=== PATIENT | female | born 1940 | race Caucasian/White ===

== ENCOUNTER 2016-07-03 10:05 | Inpatient (IN) | payer OTHER, BC ==
--- NOTE | 2016-07-03 10:14 | PDOC ---
History of Present Illness - General Stated Complaint: CHEST PAIN Time Seen by Provider: 07/03/16 10:13 History Source: Patient Exam Limitations: No Limitations - History of Present Illness Initial Comments: 07/03/16 10:14 CHIEF COMPLAINT: Chest pain HISTORY OF PRESENT ILLNESS: This is a 76 year old female with a history of CAD s /p CABG ([facility]), NIDDM, HTN, and metastatic cancer of unknown primary origin ( scheduled for liver biopsy today; prior imaging on record includes CT brain showing metastatic disease, liver u/s showing malignancy, CT chest showing metastases). She presents today complaining of dull chest pain radiating to the left arm that first occurred yesterday as she was walking up a hill. It was associated with shortness of breath and "clamminess". Her symptoms were relieved with rest but recurred this morning. Her son at bedside also notes that she has been "loopy" and not herself lately. 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 PCP is Dr. Pederson Vertical Contour Band Saw Operator is Dr. Tessa Moon ([phone]) located at [facility] [place] Patient is a non-smoker. REVIEW OF SYSTEMS: GENERAL/CONSTITUTIONAL: No fever or chills. No weakness. No weight change. HEAD, EYES, EARS, NOSE AND THROAT: No change in vision. No ear pain or discharge. No sore throat. CARDIOVASCULAR: See HPI. RESPIRATORY: No cough or wheezing. GASTROINTESTINAL: No nausea, vomiting, diarrhea or constipation. GENITOURINARY: No dysuria, frequency, or change in urination. MUSCULOSKELETAL: No joint or muscle swelling or pain. No neck or back pain. SKIN: No rash or easy bruising. NEUROLOGIC: No headache, vertigo, loss of consciousness, or loss of sensation. PSYCHIATRIC: No depression or anxiety. ENDOCRINE: No increased thirst. No abnormal weight change. HEMATOLOGIC/LYMPHATIC: No anemia, easy bleeding, or history of blood clots. ALLERGIC/IMMUNOLOGIC: No hives or skin allergy. No latex allergy. PHYSICAL EXAM: GENERAL: The patient is awake, alert, and fully oriented, in no acute distress. ENT: Pupils equal, round and reactive to light, extraocular movements intact, sclera anicteric, conjunctiva clear. Neck supple. LUNGS: Clear to auscultation bilaterally. Normal excursion. No respiratory distress or use of accessory muscles. CV: RRR, S1/S2, no MRG. Cap refill < 2 sec. ABDOMEN: Soft, non-distended, non-tender. EXTREMITIES: Normal range of motion. RLE 2+ pitting edema. No calf tenderness. NEUROLOGICAL: Normal speech, normal gait. CN II-XII grossly intact. PSYCH: Normal mood, normal affect. SKIN: Warm, dry, normal turgor, no rashes or lesions noted. Past History - Past Medical History Allergies/Adverse Reactions: Allergies Allergy/AdvReac Type Severity Reaction Status Date / Time No Known Allergies Allergy Verified 07/03/16 10:14 Home Medications: Ambulatory Orders Aspirin [Aspirin EC] 81 mg PO DAILY 11/01/15 Atorvastatin Ca [Lipitor] 20 mg PO HS 11/01/15 Carvedilol [Coreg] 6.25 mg PO BID 11/01/15 Metformin HCl [Glucophage -] 1,000 mg PO BID 11/01/15 Olmesartan Medoxomil [Benicar -] 20 mg PO DAILY 11/01/15 Raloxifene HCl [Evista (Nf) -] 60 mg PO DAILY 11/01/15 Cholecalciferol (Vitamin D3) [Vitamin D3 -] 1,000 unit PO DAILY 07/03/16 Anemia: No Asthma: No Cancer: No Cardiac Disorders: Yes (CAD) CVA: No COPD: No CHF: No Dementia: No Diabetes: Yes GI Disorders: Yes (GERD) Disorders: No HTN: No Hypercholesterolemia: No Liver Disease: No Seizures: No Thyroid Disease: No - Surgical History Abdominal Surgery: No Appendectomy: Yes Cardiac Surgery: Yes (CABG 2005) Cholecystectomy: No Lung Surgery: No Neurologic Surgery: No Orthopedic Surgery: No - Immunization History Immunization Up to Date: Yes - Psycho/Social/Smoking Cessation Hx Suicidal Ideation: No Smoking History: Never smoked Hx Alcohol Use: No Drug/Substance Use Hx: No Substance Use Type: None Hx Substance Use Treatment: No *Physical Exam - Vital Signs Last Vital Signs Temp Pulse Resp BP Pulse Ox 97.2 F L 87 20 91/53 98 07/03/16 10:12 07/03/16 10:12 07/03/16 10:12 07/03/16 10:12 07/03/16 10:12 ED Treatment Course - LABORATORY CBC & Chemistry Diagram: 07/03/16 10:30 07/03/16 10:30 - RADIOLOGY Radiology Studies Ordered: Category Date Time Status CHEST X-RAY PORTABLE* [RAD] Stat Radiology 07/03/16 10:14 Ordered Medical Decision Making - Medical Decision Making 07/03/16 10:55 A/P: 76 year old female with metastatic cancer presenting with chest pain. 1. EKG 2. CXR 3. Cardiac labs 4. Not giving ASA for now because of scheduled liver biopsy; called IR to discuss and am awaiting callback 5. Duplex LE u/s to r/o DVT- no calf pain but does have asymmetric edema and is at high risk with active malignancy 6. Admission vs. observation 07/03/16 11:13 CXR: mildly increased interstitial markings, cardiomegaly. Troponin 0.91. ASA given. Heparin bolus and gtt started. Cardiology paged. 07/03/16 11:[address] Valdez- agrees with heparin. Recommends holding on Plavix for now. Will consult on patient. U/s positive for right popliteal DVT. CTA chest ordered. CTA positive for PE in left lower pulmonary arterial branches. Echo completed. Discussed with Dr. Daniel. Will repeat HCT prior to starting heparin as cancer does seem to be rapidly progressive. Please no ASA going forward as it is important to obtain liver biopsy during this admission. Patient to be admitted to hospitalist service. Will receive oncology care primarily at [facility], but Dr. Pederson requests that Dr. Lopez consult while patient is here. Discussed with Dr. Hinds who agrees with heparin. Approved for ICU by Dr. Sanchez. Accepted for admission by Dr. Deluca. *DC/Admit/Observation/Transfer Diagnosis at time of Disposition: Elevated troponin Chest pain Qualifiers: Chest pain type: unspecified Qualified Code(s): R07.9 - Chest pain, unspecified DVT (deep venous thrombosis) Qualifiers: DVT location: lower extremity Affected thrombotic vein of extremity: popliteal Laterality: right Chronicity: acute Qualified Code(s): I82.431 - Acute embolism and thrombosis of right popliteal vein Pulmonary embolism Qualifiers: Pulmonary embolism type: other Chronicity: acute Acute cor pulmonale presence: without acute cor pulmonale Qualified Code(s): I26.99 - Other pulmonary embolism without acute cor pulmonale - Discharge Dispostion Admit: Yes - Referrals Referrals: [place] Pederson MD [Primary Care Provider] -
[2016-07-03] MEDS ORDERED: ASPIRIN 81 MG CHEWABLE TABLETS PO ONE (10:23)
[2016-07-03] MEDS ORDERED: ASPIRIN 81 MG CHEWABLE TABLETS ONE (10:29)
[2016-07-03 10:46] LABS: BASOPHIL 0.8 % (0-2.0); EOSINOPHIL 2.1 % (0-4.5); MCH 28.8 pg (25.7-33.7); MCHC 32.7 g/dl (32.0-36.0); MEAN CELL VOLUME 88.1 fl (80-96); MEAN PLT VOLUME 8.1 fl (7.5-11.1); NEUTROPHILS 69.2 % (42.8-82.8); PLATELET COUNT 104 K/MM3 (134-434); RDW 14.3 % (11.6-15.6)
[2016-07-03 10:56] LABS: ALBUMIN 3.3 g/dl (3.4-5.0); BILIRUBIN,TOTAL 0.5 mg/dL (0.2-1.0); CALCIUM 8.7 mg/dL (8.5-10.1); CREATININE 1.2 mg/dL (0.55-1.02); TOT PROT 6.9 g/dl (6.4-8.2)
[2016-07-03 10:59] LABS: INR 1.32 (0.82-1.09); PROTHROMBIN TIME (PATIENT) 14.6 SEC (9.98-11.88)
[2016-07-03 11:13] LABS: TROPONIN I 0.91 ng/ml (0.00-0.05)
[2016-07-03] MEDS ORDERED: HEPARIN NA (PORCINE) 5,000 UNITS/ML 1ML VIAL IVPUSH PRN ×2 (11:16)
[2016-07-03] MEDS ORDERED: HEPARIN NA (PORCINE) 5,000 UNITS/ML 1ML VIAL IVPUSH ONE (11:17)
[2016-07-03] MEDS: HEPARIN - 25,000 UNIT in SODIUM CHLORIDE 495 ML IV SCH (11:20)
[2016-07-03] MEDS ORDERED: HEPARIN INFUSION - 500 ML IVPB ONE (11:24)
[2016-07-03] MEDS: SODIUM CHLORIDE 1,000 ML IV SCH ×2 (12:06→19:01)
--- NOTE | 2016-07-03 12:13 | PDOC ---
*Physical Exam - Vital Signs Last Vital Signs Temp Pulse Resp BP Pulse Ox 97.2 F L 87 20 91/53 98 07/03/16 10:12 07/03/16 10:12 07/03/16 10:12 07/03/16 10:12 07/03/16 10:17 ED Treatment Course - LABORATORY CBC & Chemistry Diagram: 07/03/16 10:30 07/03/16 10:30 - ADDITIONAL ORDERS Additional order review: Laboratory Results 07/03/16 07/03/16 07/03/16 11:17 10:30 10:30 INR 1.32 H PTT (Actin FS) 30.8 Sodium 143 Potassium 4.7 Chloride 111 H Carbon Dioxide 22 Anion Gap 10 BUN 22 H Creatinine 1.2 H Creat Clearance w eGFR 43.80 Random Glucose 129 H Calcium 8.7 Total Bilirubin 0.5 AST 21 ALT 18 Alkaline Phosphatase 98 Creatine Kinase 74 Troponin I 0.91 H* Total Protein 6.9 Albumin 3.3 L 07/03/16 10:30 RBC 3.75 MCV 88.1 MCHC 32.7 RDW 14.3 MPV 8.1 Neutrophils % 69.2 Lymphocytes % 19.8 Monocytes % 8.1 Eosinophils % 2.1 Basophils % 0.8 - Medications Given in the ED: ED Medications Discontinued Medications Generic Name Dose Route Start Last Admin Trade Name Freq PRN Reason Stop Dose Admin Aspirin 162 mg 07/03/16 10:23 07/03/16 10:31 Asa - PO 07/03/16 10:24 162 mg ONCE ONE Administration Heparin Sodium (Porcine) 5,000 unit 07/03/16 11:17 07/03/16 11:20 Heparin - IVPUSH 07/03/16 11:18 5,000 unit ONCE ONE Administration Medical Decision Making - Critical Care Time Total Critical Care Time (minutes): 50 Critical Care Statement: The care of this patient involved high complexity decision making to prevent further life threatening deterioration of the patient 's condition and/or to evalute & treat vital organ system(s) failure or risk of failure. - Medical Decision Making 07/03/16 12:11 Patient seen and evaluated with the nurse practitioner. I agree with the overall evaluation, assessment, and management with the following summary of visit: 76-year-old female with metastatic CA with scheduled liver biopsy today but deferred to ED for chest pain. Agree with assessment and management as outlined, positive DVT, will rule out PE - discussion regarding anti-coagulation. Also with positive troponin. Will admit for further care, IR and PMD involved. *DC/Admit/Observation/Transfer Diagnosis at time of Disposition: Chest pain Qualifiers: Chest pain type: unspecified Qualified Code(s): R07.9 - Chest pain, unspecified
--- NOTE | 2016-07-03 12:13 | PN ---
Progress Note (short form) - Note Progress Note: Cardiology Consult Dictated 76F w/ CAD s/p CABG, recently diagnosed with probable metastatic CA of unknown primary (liver, lungs, brain) was scheduled for bx today but came to ER with 2 days of SOB and SSCP, found to have mildly elevated TnI and LE asymmetry. + DVT. Clinical suspicion of PE. REC: 1. Echo 2. Begin AC if no absolute contraindications. D/W Radiology, will repeat head CT to assure no high risk features. 3. Will likely need IVC filter once diagnosis confirmed. 4. Patient and son expressed desire to possibly be transferred to [place]; explained that this may be possible once diagnosis confirmed, therapies initiated if she remains stable for transfer.
--- NOTE | 2016-07-03 13:50 | EKG ---
Test Reason : Blood Pressure : / mmHG Vent. Rate : 090 BPM Atrial Rate : 090 BPM P-R Int : 138 ms QRS Dur : 088 ms QT Int : 364 ms P-R-T Axes : -21 000 026 degrees QTc Int : 445 ms SINUS RHYTHM WITH OCCASIONAL PREMATURE VENTRICULAR COMPLEXES OTHERWISE NORMAL ECG WHEN COMPARED WITH ECG OF 03-JUL-2016 10:13, NONSPECIFIC T WAVE ABNORMALITY NOW EVIDENT IN LATERAL LEADS Confirmed by DERECK GROSS, JANET ([id number]) on 07/03/2016 1:50:16 PM Referred By: Confirmed By:JANET HARDEN MD
--- NOTE | 2016-07-03 13:52 | EKG ---
Test Reason : Blood Pressure : / mmHG Vent. Rate : 086 BPM Atrial Rate : 086 BPM P-R Int : 142 ms QRS Dur : 086 ms QT Int : 374 ms P-R-T Axes : -11 015 027 degrees QTc Int : 447 ms SINUS RHYTHM WITH OCCASIONAL PREMATURE VENTRICULAR COMPLEXES OTHERWISE NORMAL ECG NO PREVIOUS ECGS AVAILABLE Confirmed by JANET HARDEN MD ([id number]) on 07/03/2016 1:52:29 PM Referred By: Confirmed By:JANET HARDEN MD
--- NOTE | 2016-07-03 15:07 | CONSULT ---
Consult Consult Specialty:: PULMONARY/CCM Referred by:: JUAN Olivas Reason for Consultation:: PE - History of Present Illness Chief Complaint: chest pain History of Present Illness: 76yo female with h/o HTN, DM, CAD s/p CABG, undergoing outpt work up of lung mass and likely metastatic disease who presents with dull chest pain radiating to her left arm. Associated with shortness of breath without nausea, vomiting or diaphoresis. She was scheduled to get a CT guided liver biopsy today. She was noted to have a lung mass on a CT chest 2 weeks ago, subsequent work up showing multiple lung, liver and brain nodules. She denies history of clots, no family history of clots. She is a former smoker and is on Evista. - History Source History Provided By: Patient, Family Member Limitations to Obtaining History: No Limitations - Past Medical History Cardio/Vascular: Yes: CAD, HTN Endocrine: Yes: Diabetes Mellitus - Alcohol/Substance Use Hx Alcohol Use: No - Smoking History Smoking history: Never smoked Home Medications - Allergies Allergies/Adverse Reactions: Allergies Allergy/AdvReac Type Severity Reaction Status Date / Time No Known Allergies Allergy Verified 07/03/16 10:14 - Home Medications Home Medications: Ambulatory Orders Aspirin [Aspirin EC] 81 mg PO DAILY 11/01/15 Atorvastatin Ca [Lipitor] 20 mg PO HS 11/01/15 Carvedilol [Coreg] 6.25 mg PO BID 11/01/15 Metformin HCl [Glucophage -] 1,000 mg PO BID 11/01/15 Olmesartan Medoxomil [Benicar -] 20 mg PO DAILY 11/01/15 Raloxifene HCl [Evista (Nf) -] 60 mg PO DAILY 11/01/15 Cholecalciferol (Vitamin D3) [Vitamin D3 -] 1,000 unit PO DAILY 07/03/16 Family Disease History - Family Disease History Other Family History: non-contributory Review of Systems - Review of Systems Constitutional: denies: Chills, Fever Eyes: denies: Recent Change in Vision HENT: denies: Nasal Congestion, Throat Pain Neck: denies: Stiffness, Tenderness Cardiovascular: reports: Chest Pain, Shortness of Breath. denies: Edema, Palpitations Respiratory: reports: SOB, SOB on Exertion. denies: Cough, Hemoptysis, Wheezing Gastrointestinal: denies: Abdominal Pain, Nausea, Vomiting Genitourinary: denies: Dysuria, Hematuria Neurological: denies: Dizziness, Headache Physical Exam Vital Signs: Vital Signs Temperature 98.3 F 07/03/16 14:27 Pulse Rate 86 07/03/16 14:27 Respiratory Rate 20 07/03/16 14:27 Blood Pressure 112/60 07/03/16 14:27 O2 Sat by Pulse Oximetry (%) 98 07/03/16 14:27 Constitutional: Yes: Calm Eyes: Yes: Conjunctiva Clear, EOM Intact HENT: Yes: Atraumatic, Normocephalic Neck: Yes: Supple, Trachea Midline Cardiovascular: Yes: Regular Rate and Rhythm Respiratory: Yes: Regular, CTA Bilaterally Gastrointestinal: Yes: Normal Bowel Sounds, Soft. No: Tenderness Edema: No Neurological: Yes: Alert, Oriented Imaging - Results Cat Scan: Report Reviewed, Image Reviewed (GREGORY mass, multiple nodules, bilateral PE) Problem List - Problems (1) Pulmonary embolism Code(s): I26.99 - OTHER PULMONARY EMBOLISM WITHOUT ACUTE COR PULMONALE Qualifiers: Pulmonary embolism type: other Chronicity: acute Acute cor pulmonale presence: without acute cor pulmonale Qualified Code(s): I26.99 - Other pulmonary embolism without acute cor pulmonale (2) DVT (deep venous thrombosis) Code(s): I82.409 - ACUTE EMBOLISM AND THOMBOS UNSP DEEP VN UNSP LOWER EXTREMITY Qualifiers: DVT location: lower extremity Affected thrombotic vein of extremity: popliteal Laterality: right Chronicity: acute Qualified Code(s): I82.431 - Acute embolism and thrombosis of right popliteal vein (3) Chest pain Code(s): R07.9 - CHEST PAIN, UNSPECIFIED Qualifiers: Chest pain type: unspecified Qualified Code(s): R07.9 - Chest pain, unspecified (4) Elevated troponin Code(s): R79.89 - OTHER SPECIFIED ABNORMAL FINDINGS OF BLOOD CHEMISTRY (5) Pulmonary hypertension Code(s): I27.2 - OTHER SECONDARY PULMONARY HYPERTENSION (6) Lung mass Code(s): R91.8 - OTHER NONSPECIFIC ABNORMAL FINDING OF LUNG FIELD (7) Brain metastases Code(s): C79.31 - SECONDARY MALIGNANT NEOPLASM OF BRAIN Assessment/Plan Acute Pulmonary Emboli DVT Pulmonary HTN 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 CAD s/p CABG HTN DM - anticoagulate with heparin - neuro checks - will try to coordinate liver biopsy while inpatient - O2 to keep SpO2 >90% - may need IVC filter if unable to anticoagulate - ICU monitoring overnight Thank you for this consult Boy Sanchez MD
--- NOTE | 2016-07-03 15:41 | CONS ---
DATE OF CONSULTATION: 07/03/2016 CARDIOLOGY CONSULTATION REQUESTING PROVIDER: Esther Olivas NP, in the emergency department. REASON FOR CONSULTATION: Positive troponin. HISTORY OF PRESENT ILLNESS: The patient is a 76-year-old female with a history of coronary disease, status post CABG greater than 4 years ago, recently diagnosed metastatic cancer to lung, liver and brain. The patient was scheduled for biopsy today but began experiencing substernal chest pressure and shortness of breath beginning yesterday. In the ER she was found to have a troponin level of 0.91 as well as asymmetric lower extremity edema, with her right lower extremity more swollen. Obviously, clinical concern for DVT and PE -- lower extremity duplex confirmed DVT in the right popliteal vein. Presently she is comfortable, with no chest pain, saturation normally with minimal nasal cannula supplementation. She is hemodynamically stable. PAST MEDICAL HISTORY: Includes coronary disease, status post CABG, hypertension, diabetes, hyperlipidemia, recently diagnosed metastatic disease of unknown primary. ALLERGIES: None. MEDICATIONS: Home medications include Evista 60 mg daily, Benicar 20 mg daily, metformin 1000 mg b.i.d., vitamin D3 at 1000 units daily, carvedilol 6.25 mg b.i.d., atorvastatin 20 mg nightly, aspirin 81 mg daily. FAMILY HISTORY: Noncontributory. 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 She is a former smoker. PHYSICAL EXAMINATION: Vitals: Afebrile, temperature 97.2. Blood pressure 91/53. O2 saturation 98 on room air. General: Alert, awake, conversant. Neck: No bruits. No JVD. Heart: S1, S2. Regular. No murmurs. Chest: Clear. Abdomen: Soft. Extremities: With 2+ right lower extremity edema and 1+ left lower extremity edema. DIAGNOSTIC STUDIES: EKG showed sinus rhythm with no acute ST changes, rare PVCs. Chest x-ray shows increased interstitial lung markings and mild cardiomegaly. Left upper lung mass. Previous radiology studies from late May and early June were reviewed, including CT scan of the chest from June 19 showing 2 dominant left lobe masses suspicious for malignancy as well as scattered pulmonary nodules suspicious for metastatic disease and multiple liver lesions suspicious for metastatic disease. A head CT performed on June 27, 2016, showed no acute hemorrhage but decreased attenuation in the left frontal centrum semiovale white matter suspicious for a malignant process. ASSESSMENT: A 76-year-old female with remote history of coronary disease, recently diagnosed metastatic disease, of unknown primary, to the liver, lung and brain, now presents with chest pain and shortness of breath, found to have deep venous thrombosis and probable pulmonary embolism. PLAN: 1. Echocardiogram to assess RV function, assess degree of pulmonary hypertension. 2. Would begin anticoagulation if there are no contraindications. This was discussed with Radiology. A repeat head CT will be obtained to assure that there are no high risk features, such as intracranial bleeding or areas of bleeding within areas of necrosis. 3. The patient will likely need an IVC filter once diagnosis is confirmed. 4. The patient and son expressed desire for possible transfer to [place], which will be an option once the diagnosis is confirmed and treatment is initiated, if she remains stable. 5. Would obtain oncology evaluation and pulmonary evaluation as well. BENNETT KAUR M.D. [id number]
[2016-07-03 15:44] VITALS: BMI 34.0
[2016-07-03] MEDS ORDERED: ONDANSETRON 4 MG/2 ML VIAL IVPB PRN (15:50)
[2016-07-03] MEDS ORDERED: ACETAMINOPHEN 325 MG TABLET (FP) PO PRN (15:50)
--- NOTE | 2016-07-03 16:56 | CONSULT ---
Consult - text type - Consultation Consultation Note: This is a 76 year old female with a history of CAD s/p CABG ([facility]), NIDDM, HTN , and metastatic cancer (scheduled for liver biopsy today; prior imaging on record includes CT brain showing metastatic disease, liver u/s showing malignancy, CT chest showing lung lesions). She presents today complaining of dull chest pain radiating to the left arm that first occurred yesterday as she was walking up a hill. It was associated with shortness of breath and "clamminess". Her symptoms were relieved with rest but recurred this morning. Her son at bedside also notes that she has been "loopy" and not herself lately. More forgertful and clumsy over last few weeks. Several pounds wt. loss. Loss of appetite. 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 PMH HTN DM CAD Last Vital Signs Temp Pulse Resp BP Pulse Ox 98.3 F 86 20 112/60 98 07/03/16 14:27 07/03/16 14:27 07/03/16 14:27 07/03/16 14:27 07/03/16 14:27 PHYSICAL EXAM: GENERAL: The patient is awake, alert, and fully oriented, in no acute distress. ENT: Pupils equal, round and reactive to light, extraocular movements intact, sclera anicteric, conjunctiva clear. Neck supple. LUNGS: Clear to auscultation bilaterally. Normal excursion. No respiratory distress or use of accessory muscles. CV: RRR, S1/S2, no MRG. Cap refill < 2 sec. ABDOMEN: Soft, non-distended, non-tender. EXTREMITIES: Normal range of motion. RLE 2+ pitting edema. No calf tenderness. NEUROLOGICAL: Normal speech, normal gait. CN II-XII grossly intact. Allergies/Adverse Reactions: Allergies Allergy/AdvReac Type Severity Reaction Status Date / Time No Known Allergies Allergy Verified 07/03/16 10:14 Home Medications: Ambulatory Orders Aspirin [Aspirin EC] 81 mg PO DAILY 11/01/15 Atorvastatin Ca [Lipitor] 20 mg PO HS 11/01/15 Carvedilol [Coreg] 6.25 mg PO BID 11/01/15 Metformin HCl [Glucophage -] 1,000 mg PO BID 11/01/15 Olmesartan Medoxomil [Benicar -] 20 mg PO DAILY 11/01/15 Raloxifene HCl [Evista (Nf) -] 60 mg PO DAILY 11/01/15 Cholecalciferol (Vitamin D3) [Vitamin D3 -] 1,000 unit PO DAILY 07/03/16 FH--not contributory SH--ex smoker. Quit 20yrs. ago - Surgical History Appendectomy: Yes Cardiac Surgery: Yes (CABG 2005) - Psycho/Social/Smoking Cessation Hx Smoking History: Never smoked Abnormal Lab Results 07/03/16 07/03/16 07/03/16 10:30 10:30 10:30 WBC 11.0 H Plt Count 104 L INR 1.32 H Chloride 111 H BUN 22 H Creatinine 1.2 H Random Glucose 129 H Troponin I 0.91 H* Albumin 3.3 L A/P: PAtient , noted to have 2 Lt. lung masses and other scattered nodules, multiple liver masses suspicious for mets and brain lesions around 11-13mm with some surrounding edema Scenario suspicious for metastatic lung cancer? will need tissue biopsy via IR. ASA has been on hold for 7d now. Hypercoagulable state of malignancy with DVT/PE--rt. popliteal and LLL PE On heparin drip thromboembolic disease in patients with brain mets is usually not an absolute contraindication for anticoagulation. In certain cases where renal cell/chorioca /thyroid/melanoma is supected vascular mets have a tendency to bleed . Ct head done shows no e/o bleed will need MRI brain with and without lefty once creatinine improves with hydration given the perilesional edema will consider steroids/protonix neurology consult/rad-onc consult to coordinate with IR for biopsy and filter if necessary for procedure if a/c is to be interrupted for a prolonged period of time
--- NOTE | 2016-07-03 16:58 | HP ---
PCP: Chico Pederson CHIEF COMPLAINT: Chest pain HISTORY OF PRESENT ILLNESS: This is a 76-year-old woman who was recently found to have a lung mass with metastatic disease of liver, lungs and brain, and was scheduled for a liver biopsy today. She presented to the ER today with chest pain radiating to her left arm with shortness of breath. She denies palpitations , diaphoresis, nausea, leg edema, leg pain. PAST MEDICAL HISTORY CAD Type 2 diabetes mellitus Hypertension Metastatic cancer (liver, lung, brain metastases) unknown primary GERD PAST SURGICAL HISTORY CABG Appendectomy Allergies No Known Allergies Allergy (Verified 07/03/16 10:14) HOME MEDICATIONS 3 Medication Instructions Recorded Aspirin [Aspirin EC] 81 mg PO DAILY 11/01/15 Atorvastatin Ca [Lipitor] 20 mg PO HS 11/01/15 Carvedilol [Coreg] 6.25 mg PO BID 11/01/15 Metformin HCl [Glucophage -] 1,000 mg PO BID 11/01/15 Olmesartan Medoxomil [Benicar -] 20 mg PO DAILY 11/01/15 Raloxifene HCl [Evista (Nf) -] 60 mg PO DAILY 11/01/15 Cholecalciferol (Vitamin D3) 1,000 unit PO DAILY 07/03/16 [Vitamin D3 -] Social History: Smoking: Never smoked Alcohol: None Drugs: None Recent Travel: No Family History: Non-contributory REVIEW OF SYSTEMS CONSTITUTIONAL: Absent: fever, chills, diaphoresis, generalized weakness, malaise, loss of appetite, weight change HEENT: Absent: rhinorrhea, nasal congestion, throat pain, throat swelling, difficulty swallowing, mouth swelling, ear pain, eye pain, visual changes CARDIOVASCULAR: Present: chest pain. Absent: syncope, palpitations, lightheadedness, peripheral edema RESPIRATORY: Present: shortness of breath. Absent: cough, orthopnea, wheezing, stridor, hemoptysis GASTROINTESTINAL: Absent: abdominal pain, abdominal distension, nausea, vomiting , diarrhea, constipation, melena, hematochezia GENITOURINARY: Absent: dysuria, frequency, urgency, hesitancy, hematuria, flank pain MUSCULOSKELETAL: Absent: myalgia, arthralgia, joint swelling, back pain, neck pain SKIN: Absent: rash, itching, pallor HEMATOLOGIC/IMMUNOLOGIC: Absent: easy bleeding, easy bruising, lymphadenopathy, frequent infections ENDOCRINE: Absent: unexplained weight gain, unexplained weight loss, heat intolerance, cold intolerance NEUROLOGIC: Absent: headache, focal weakness, paresthesias, dizziness, unsteady gait, seizure, mental status changes, bladder or bowel incontinence PSYCHIATRIC: Absent: anxiety, depression, suicidal or homicidal ideation, hallucinations. PHYSICAL EXAMINATION Vital Signs Period Temp Pulse Resp BP Sys/Urbina Pulse Ox Last 24 Hr 97.2 F-98.3 F 82-87 17-20 91-141/53-95 98-98 GENERAL: Awake, alert, and fully oriented, in no acute distress. HEAD: Normal with no signs of trauma. EYES: Pupils equal, round and reactive to light, extraocular movements intact, sclerae anicteric, conjunctivae clear. EARS, NOSE, THROAT: Ears normal, nares patent, oropharynx clear without exudates. Moist mucous membranes. NECK: Normal range of motion, supple without lymphadenopathy, JVD, or masses. LUNGS: Breath sounds equal, clear to auscultation bilaterally. No wheezes, and no crackles. No accessory muscle use. HEART: Regular rate and rhythm, normal S1 and S2 without murmur, rub or gallop. ABDOMEN: Soft, nontender, not distended, normoactive bowel sounds, no guarding, no rebound, no masses. No hepatomegaly or splenomegaly. MUSCULOSKELETAL: Normal range of motion at all joints. No bony deformities or tenderness. No CVA tenderness. UPPER EXTREMITIES: 2+ pulses, warm, well-perfused. No cyanosis. No clubbing. Cap refill <2 seconds. No peripheral edema. LOWER EXTREMITIES: 2+ pulses, warm, well-perfused. No calf tenderness. Trace edema RLE. NEUROLOGICAL: Cranial nerves II-XII intact. Normal speech. Gait not observed. PSYCHIATRIC: Cooperative. Good eye contact. Appropriate mood and affect. SKIN: Warm, dry, normal turgor, no rashes or lesions noted. Laboratory Tests 07/03/16 07/03/16 07/03/16 10:30 10:30 10:30 WBC 11.0 H RBC 3.75 Hgb 10.8 Hct 33.0 MCV 88.1 MCHC 32.7 RDW 14.3 Plt Count 104 L MPV 8.1 Neutrophils % 69.2 Lymphocytes % 19.8 Monocytes % 8.1 Eosinophils % 2.1 Basophils % 0.8 INR 1.32 H PTT (Actin FS) Sodium 143 Potassium 4.7 Chloride 111 H Carbon Dioxide 22 Anion Gap 10 BUN 22 H Creatinine 1.2 H Creat Clearance w eGFR 43.80 Random Glucose 129 H Calcium 8.7 Total Bilirubin 0.5 AST 21 ALT 18 Alkaline Phosphatase 98 Creatine Kinase 74 Troponin I 0.91 H* Total Protein 6.9 Albumin 3.3 L 07/03/16 11:17 WBC RBC Hgb Hct MCV MCHC RDW Plt Count MPV Neutrophils % Lymphocytes % Monocytes % Eosinophils % Basophils % INR PTT (Actin FS) 30.8 Sodium Potassium Chloride Carbon Dioxide Anion Gap BUN Creatinine Creat Clearance w eGFR Random Glucose Calcium Total Bilirubin AST ALT Alkaline Phosphatase Creatine Kinase Troponin I Total Protein Albumin Head CT: Moderate atrophy. Chronic microvascular ischemic changes. 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 Asymmetric lucency left frontoparietal junction suggestive of encephalomalacia. Multiple enhancing lesions consistent with metastases. Chest x-ray: Increased interstitial markings. Mild cardiomegaly. Chest CTA: Left lower lobe PE. Two masses left lung. Liver lesions. Venous doppler both legs: Right popliteal DVT. ASSESSMENT/PLAN: This is a 76-year-old woman with a history of CAD, CABG, HTN, type 2 DM, GERD who was recently diagnosed with metastatic cancer (liver, lungs, brain) and who comes to the ER today with chest pain and shortness of breath. She was found to have RLE DVT and LLL PE, troponin 0.91. She is being admitted now for treatment of an emergent condition. 1. RLE DVT with acute LLL pulmonary embolus - Admit to ICU - Heparin IV - Oxygen to maintain saturation >90% - Discontinue Evista - Pulmonary/critical care, oncology consults 2. Metastatic cancer with unknown primary - Liver biopsy was planned for today - Hold aspirin in preparation for liver biopsy - Oncology consult 3. CAD, history of CABG - Continue Coreg, Lipitor - Hold aspirin for liver biopsy 4. Hypertension - Continue Coreg, Benicar 5. Type 2 diabetes mellitus - Hold metformin secondary to IV contrast - Fingersticks with Novolog sliding scale 6. GERD 7. Thrombocytopenia - Monitor platelets while on heparin 8. Stage 3 CKD - IV fluid and monitor creatinine s/p IV contrast 9. Elevated troponin secondary to RV strain from PE - Serial troponins - Echocardiogram - On heparin IV for PE Visit type - Emergency Visit Emergency Visit: Yes ED Registration Date: 07/03/16 Care time: The patient presented to the Emergency Department on the above date and was hospitalized for further evaluation of their emergent condition. - New Patient This patient is new to me today: Yes Date on this admission: 07/03/16 - Critical Care Critical Care patient: Yes Total Critical Care Time (in minutes): 40 Critical Care Statement: The care of this patient involved high complexity decision making to prevent further life threatening deterioration of the patient 's condition and/or to evalute & treat vital organ system(s) failure or risk of failure.
[2016-07-03] MEDS: INSULIN SLIDING SCALE (NOVOLOG) 1 VIAL SQ SCH ×2 (18:24→22:58)
[2016-07-03] MEDS: DEXAMETHASONE SOD PHOSPHATE 4 MG/1 ML VIAL IVPB SCH ×2 (18:24→20:54)
[2016-07-03 21:36] LABS: TROPONIN I 3.61 ng/ml (0.00-0.05)
[2016-07-03] MEDS: PANTOPRAZOLE SODIUM 100 ML IVPB SCH (22:50)
[2016-07-03] MEDS: CHLORHEXIDINE GLUCONATE 4% CLEANSER FOR DECOLONIZATION TP SCH (22:50)
[2016-07-03] MEDS: CARVEDILOL 6.25 MG TABLET (FP) PO SCH (22:50)
[2016-07-03] MEDS: ATORVASTATIN CA 20 MG TABLET (FP) PO SCH (22:50)
[2016-07-03] MEDS: MUPIROCIN 2% TOPICAL OINTMENT FOR DECOLONIZATION NS SCH (22:50)
[2016-07-04] MEDS: DEXAMETHASONE SOD PHOSPHATE 4 MG/1 ML VIAL IVPB SCH ×4 (02:09→20:49)
[2016-07-04 05:55] LABS: BASOPHIL 0.5 % (0-2.0); EOSINOPHIL 0.1 % (0-4.5); MCH 29.2 pg (25.7-33.7); MCHC 33.2 g/dl (32.0-36.0); MEAN CELL VOLUME 87.9 fl (80-96); MEAN PLT VOLUME 8.5 fl (7.5-11.1); NEUTROPHILS 83.3 % (42.8-82.8); PLATELET COUNT 114 K/MM3 (134-434); RDW 14.3 % (11.6-15.6); WHITE BLOOD COUNT 7.8 K/mm3 (4.0-10.0)
[2016-07-04] MEDS: INSULIN SLIDING SCALE (NOVOLOG) 1 VIAL SQ SCH ×4 (06:10→21:26)
[2016-07-04 06:45] LABS: ALBUMIN 2.9 g/dl (3.4-5.0); BILIRUBIN,TOTAL 0.4 mg/dL (0.2-1.0); CALCIUM 8.1 mg/dL (8.5-10.1); MAGNESIUM 1.6 mg/dL (1.8-2.4); PHOSPHOROUS 3.6 mg/dL (2.5-4.9)
[2016-07-04 07:13] LABS: TROPONIN I 2.08 ng/ml (0.00-0.05)
[2016-07-04] MEDS ORDERED: HEPARIN INFUSION - 500 ML IVPB ONE (08:19)
[2016-07-04] MEDS: HEPARIN - 25,000 UNIT in SODIUM CHLORIDE 495 ML IV SCH ×2 (09:15→12:50)
[2016-07-04] MEDS: VALSARTAN 160 MG TABLET (UD) PO SCH (09:23)
[2016-07-04] MEDS: CHOLECALCIFEROL (VITAMIN D3) 1,000 UNIT TABLET (FP) PO SCH (09:23)
[2016-07-04] MEDS: CARVEDILOL 6.25 MG TABLET (FP) PO SCH ×2 (09:24→21:24)
[2016-07-04] MEDS: SODIUM CHLORIDE 1,000 ML IV SCH ×4 (09:25→20:30)
[2016-07-04] MEDS: MUPIROCIN 2% TOPICAL OINTMENT FOR DECOLONIZATION NS SCH ×2 (09:25→21:28)
--- NOTE | 2016-07-04 09:34 | PN ---
Progress Note (short form) - Note Progress Note: Patient seen and examined in the ICU. Awake and alert. Frustrated about her condition. Wants to go home. Denies CP or SOB. On IV Heparin. Intake & Output 07/01/16 07/02/16 07/03/16 07/04/16 23:59 23:59 23:59 23:59 Intake Total 1359 Output Total 800 Balance 559 Weight 198 lb 3.2 oz 198 lb Last Vital Signs Temp Pulse Resp BP Pulse Ox 97.4 F L 82 19 107/90 96 07/04/16 06:00 07/04/16 08:00 07/04/16 08:00 07/04/16 08:00 07/03/16 21:00 Active Medications Acetaminophen (Tylenol -) 650 mg PO Q4H PRN PRN Reason: FEVER OR PAIN Atorvastatin Calcium (Lipitor -) 20 mg PO HS [facility] Last Admin: 07/03/16 22:50 Dose: 20 mg Carvedilol (Coreg -) 6.25 mg PO BID [facility] Last Admin: 07/04/16 09:24 Dose: 6.25 mg Chlorhexidine Gluconate (Hibiclens For Decolonization -) 1 applic TP HS [facility] Last Admin: 07/03/16 22:50 Dose: 1 applic Cholecalciferol (Vitamin D3 -) 1,000 unit PO DAILY [facility] Last Admin: 07/04/16 09:23 Dose: 1,000 unit Dexamethasone Sodium Phosphate (Decadron Injection -) 4 mg IVPB Q6H-IV [facility] Last Admin: 07/04/16 09:23 Dose: 4 mg Heparin Sodium (Porcine) (Heparin -) 1,000 unit IVPUSH PRN PRN PRN Reason: Heparin Heparin Sodium (Porcine) (Heparin -) 5,000 unit IVPUSH PRN PRN PRN Reason: Heparin Heparin Sodium (Porcine) 25, (000 unit/ Sodium Chloride) 500 mls @ 20 mls/hr IV TITR ANIVAL; 1,000 UNIT/HR PRN Reason: Protocol Last Admin: 07/04/16 09:15 Dose: 21 mls/hr Sodium Chloride (Normal Saline -) 1,000 mls @ 125 mls/hr IV ASDIR [facility] Last Admin: 07/04/16 09:25 Dose: 125 mls/hr Pantoprazole Sodium (Protonix 40mg Ivpb (Pre-Docked)) 100 mls @ 200 mls/hr IVPB HS [facility] Last Admin: 07/03/16 22:50 Dose: 200 mls/hr Sodium Chloride (Normal Saline -) 1,000 mls @ 60 mls/hr IV ASDIR [facility] Last Admin: 07/03/16 19:01 Dose: 60 mls/hr Insulin Aspart (Novolog Vial Sliding Scale -) 1 vial SQ ACHS [facility] PRN Reason: Protocol Last Admin: 07/04/16 06:10 Dose: 4 units Mupirocin (Bactroban Ointment (For Decolonization) -) 1 applic NS BID [facility] Stop: 07/08/16 21:59 Last Admin: 07/04/16 09:25 Dose: 1 applic Ondansetron HCl (Zofran Injection) 4 mg IVPB Q6H PRN PRN Reason: NAUSEA Last Admin: 07/04/16 09:23 Dose: 4 mg Valsartan (Diovan -) 160 mg PO DAILY [facility] Last Admin: 07/04/16 09:23 Dose: 160 mg Constitutional: Yes: Awake and alert Eyes: Yes: Conjunctiva Clear, EOM Intact HENT: Yes: Atraumatic, Normocephalic Neck: Yes: Supple, Trachea Midline Cardiovascular: Yes: Regular Rate and Rhythm Respiratory: Yes: Regular, CTA Bilaterally Gastrointestinal: Yes: Normal Bowel Sounds, Soft. No: Tenderness Edema: No Neurological: Yes: Alert, Oriented Problem List - Problems (1) Pulmonary embolism Code(s): I26.99 - OTHER PULMONARY EMBOLISM WITHOUT ACUTE COR PULMONALE Qualifiers: Pulmonary embolism type: other Chronicity: acute Acute cor pulmonale presence: without acute cor pulmonale Qualified Code(s): I26.99 - Other pulmonary embolism without acute cor pulmonale (2) DVT (deep venous thrombosis) Code(s): I82.409 - ACUTE EMBOLISM AND THOMBOS UNSP DEEP VN UNSP LOWER EXTREMITY Qualifiers: DVT location: lower extremity Affected thrombotic vein of extremity: popliteal Laterality: right Chronicity: acute Qualified Code(s): I82.431 - Acute embolism and thrombosis of right popliteal vein (3) Chest pain Code(s): R07.9 - CHEST PAIN, UNSPECIFIED Qualifiers: Chest pain type: unspecified Qualified Code(s): R07.9 - Chest pain, unspecified (4) Elevated troponin Code(s): R79.89 - OTHER SPECIFIED ABNORMAL FINDINGS OF BLOOD CHEMISTRY (5) Pulmonary hypertension Code(s): I27.2 - OTHER SECONDARY PULMONARY HYPERTENSION (6) Lung mass Code(s): R91.8 - OTHER NONSPECIFIC ABNORMAL FINDING OF LUNG FIELD (7) Brain metastases Code(s): C79.31 - SECONDARY MALIGNANT NEOPLASM OF BRAIN Assessment/Plan Acute Pulmonary Emboli DVT Pulmonary HTN 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 CAD s/p CABG HTN DM - AC with IV heparin - neuro checks - will need tissue diagnosis - O2 to keep SpO2 >90% - may need IVC filter if unable to anticoagulate - Telemetry/cardiac monitoring Dr Ricci CCTime 35"
[2016-07-04] MEDS ORDERED: PATIENT'S OWN MEDICATION (NON-FORMULARY) (Olmesartan Medoxomil 20 MG) PO SCH (10:00)
[2016-07-04] MEDS ORDERED: PATIENT'S OWN MEDICATION (NON-FORMULARY) (Raloxifene Hcl 60 MG) PO SCH (10:00)
--- NOTE | 2016-07-04 10:39 | EKG ---
Test Reason : Blood Pressure : / mmHG Vent. Rate : 092 BPM Atrial Rate : 092 BPM P-R Int : 144 ms QRS Dur : 084 ms QT Int : 360 ms P-R-T Axes : 050 029 043 degrees QTc Int : 445 ms POOR DATA QUALITY, INTERPRETATION MAY BE ADVERSELY AFFECTED SINUS RHYTHM WITH OCCASIONAL PREMATURE VENTRICULAR COMPLEXES WHEN COMPARED WITH ECG OF 03-JUL-2016 11:29, NO SIGNIFICANT CHANGE WAS FOUND Confirmed by BERNABE GROSS, MILAGRO ([id number]) on 07/04/2016 10:39:26 AM Referred By: DARNELL YEN Confirmed By:MILAGRO KIDD MD
--- NOTE | 2016-07-04 10:48 | PN ---
Progress Note, Physician History of Present Illness: seen and examined today in nad. no overnight events. she is upset and wants to go home. - Current Medication List Current Medications: Active Medications Acetaminophen (Tylenol -) 650 mg PO Q4H PRN PRN Reason: FEVER OR PAIN Atorvastatin Calcium (Lipitor -) 20 mg PO HS [facility] Last Admin: 07/03/16 22:50 Dose: 20 mg Carvedilol (Coreg -) 6.25 mg PO BID [facility] Last Admin: 07/04/16 09:24 Dose: 6.25 mg Chlorhexidine Gluconate (Hibiclens For Decolonization -) 1 applic TP HS [facility] Last Admin: 07/03/16 22:50 Dose: 1 applic Cholecalciferol (Vitamin D3 -) 1,000 unit PO DAILY [facility] Last Admin: 07/04/16 09:23 Dose: 1,000 unit Dexamethasone Sodium Phosphate (Decadron Injection -) 4 mg IVPB Q6H-IV [facility] Last Admin: 07/04/16 09:23 Dose: 4 mg Heparin Sodium (Porcine) (Heparin -) 1,000 unit IVPUSH PRN PRN PRN Reason: Heparin Heparin Sodium (Porcine) (Heparin -) 5,000 unit IVPUSH PRN PRN PRN Reason: Heparin Heparin Sodium (Porcine) 25, (000 unit/ Sodium Chloride) 500 mls @ 20 mls/hr IV TITR [facility]IV[facility]; 1,000 UNIT/HR PRN Reason: Protocol Last Admin: 07/04/16 09:15 Dose: 21 mls/hr Sodium Chloride (Normal Saline -) 1,000 mls @ 125 mls/hr IV ASDIR [facility] Last Admin: 07/04/16 09:25 Dose: 125 mls/hr Pantoprazole Sodium (Protonix 40mg Ivpb (Pre-Docked)) 100 mls @ 200 mls/hr IVPB HS [facility] Last Admin: 07/03/16 22:50 Dose: 200 mls/hr Sodium Chloride (Normal Saline -) 1,000 mls @ 60 mls/hr IV ASDIR [facility] Last Admin: 07/03/16 19:01 Dose: 60 mls/hr Insulin Aspart (Novolog Vial Sliding Scale -) 1 vial SQ ACHS [facility] PRN Reason: Protocol Last Admin: 07/04/16 06:10 Dose: 4 units Mupirocin (Bactroban Ointment (For Decolonization) -) 1 applic NS BID [facility] Stop: 07/08/16 21:59 Last Admin: 07/04/16 09:25 Dose: 1 applic Ondansetron HCl (Zofran Injection) 4 mg IVPB Q6H PRN PRN Reason: NAUSEA Last Admin: 07/04/16 09:23 Dose: 4 mg Valsartan (Diovan -) 160 mg PO DAILY [facility] Last Admin: 07/04/16 09:23 Dose: 160 mg - Objective Vital Signs: Vital Signs Temperature 97.4 F L 07/04/16 06:00 Pulse Rate 106 H 07/04/16 10:00 Respiratory Rate 19 07/04/16 10:00 Blood Pressure 119/28 07/04/16 10:00 O2 Sat by Pulse Oximetry (%) 96 07/03/16 21:00 Constitutional: Yes: Well Nourished, No Distress, Calm Eyes: Yes: WNL, Conjunctiva Clear, EOM Intact, PERRL HENT: Yes: WNL, Atraumatic, Normocephalic Neck: Yes: WNL, Supple, Trachea Midline Cardiovascular: Yes: WNL, Regular Rate and Rhythm, JVD, S1, S2. No: Bradycardia , Tachycardia, Pulse Irregular, Bruit, Gallop, Murmur, Rub, S3, S4, Varicosities Respiratory: Yes: WNL, Regular, CTA Bilaterally. No: Rales, Rhonchi, Wheezes Gastrointestinal: Yes: WNL, Normal Bowel Sounds, Soft. No: Distention, Tenderness Musculoskeletal: Yes: WNL Extremities: Yes: WNL Edema: No Peripheral Pulses WNL: Yes Peripheral Pulses: Left Doralis Pedis: 2+, Right Dorsalis Pedis: 2+ Integumentary: Yes: WNL Neurological: Yes: WNL, Alert, Oriented, Cran Nerves II-XII Intact ...Motor Strength: WNL Psychiatric: Yes: WNL, Alert, Oriented Labs: CBC, BMP 07/04/16 05:05 07/04/16 05:05 INR, PTT INR 1.32 (0.82-1.09) H 07/03/16 10:30 - ....Imaging Chest X-ray: Report Reviewed, Image Reviewed EKG: Report Reviewed, Image Reviewed Other: Report Reviewed, Image Reviewed (tele-nsr, frequent apcs, psvt, pvcs) Assessment/Plan 76F w/ CAD s/p CABG, recently diagnosed with probable metastatic CA of unknown primary (liver, lungs, brain) admitted with 2 days of SOB and SSCP, found to have evidence of an acute PE. REC: Echo showed mildly reduce LV function, no comment on RV function Elevated troponin most likely secondary to acute PE, not type 1 MD On heparin for PE/DVT Cont care as per CCM/Pulm
--- NOTE | 2016-07-04 11:16 | PN ---
Progress Note (short form) - Note Progress Note: Subjective: The patient was seen and examined in the ICU, she has expressed frustration for her disease process. She reports she would like to sign out AMA. She states she is aware that if she leaves AMA she is aware of the risks of worsening condition or . Psych consult pending for competency Current Medications Generic Name Dose Route Start Last Admin Trade Name Freq PRN Reason Stop Dose Admin Acetaminophen 650 mg 07/03/16 15:50 Tylenol - PO Q4H PRN FEVER OR PAIN Atorvastatin Calcium 20 mg 07/03/16 22:00 07/03/16 22:50 Lipitor - PO 20 mg HS [facility] Administration Carvedilol 6.25 mg 07/03/16 22:00 07/04/16 09:24 Coreg - PO 6.25 mg BID [facility] Administration Chlorhexidine Gluconate 1 applic 07/03/16 22:00 07/03/16 22:50 Hibiclens For Decolonization - TP 1 applic HS [facility] Administration Cholecalciferol 1,000 unit 07/04/16 10:00 07/04/16 09:23 Vitamin D3 - PO 1,000 unit DAILY [facility] Administration Dexamethasone Sodium Phosphate 4 mg 07/03/16 18:15 07/04/16 09:23 Decadron Injection - IVPB 4 mg Q6H-IV [facility] Administration Heparin Sodium (Porcine) 1,000 unit 07/03/16 11:16 Heparin - IVPUSH PRN PRN Heparin Heparin Sodium (Porcine) 5,000 unit 07/03/16 11:16 Heparin - IVPUSH PRN PRN Heparin Heparin Sodium (Porcine) 25, 500 mls @ 20 mls/hr 07/03/16 11:30 07/04/16 09:15 000 unit/ Sodium Chloride IV 21 mls/hr TITR [facility] Administration Protocol 1,000 UNIT/HR Sodium Chloride 1,000 mls @ 125 mls/hr 07/03/16 12:00 07/04/16 09:25 Normal Saline - IV 125 mls/hr ASDIR [facility] Administration Pantoprazole Sodium 100 mls @ 200 mls/hr 07/03/16 22:00 07/03/16 22:50 Protonix 40mg Ivpb (Pre-Docked) IVPB 200 mls/hr HS [facility] Administration Sodium Chloride 1,000 mls @ 60 mls/hr 07/03/16 18:30 07/03/16 19:01 Normal Saline - IV 60 mls/hr ASDIR [facility] Administration Insulin Aspart 1 vial 07/03/16 16:30 07/04/16 06:10 Novolog Vial Sliding Scale - SQ 4 units ACHS [facility] Administration Protocol Mupirocin 1 applic 07/03/16 22:00 07/04/16 09:25 Bactroban Ointment (For Decolonization) - NS 07/08/16 21:59 1 applic BID [facility] Administration Ondansetron HCl 4 mg 07/03/16 15:50 07/04/16 09:23 Zofran Injection IVPB 4 mg Q6H PRN Administration NAUSEA Valsartan 160 mg 07/04/16 10:00 07/04/16 09:23 Diovan - PO 160 mg DAILY [facility] Administration Objective: Vital Signs Period Temp Pulse Resp BP Sys/Urbina Pulse Ox Last 24 Hr 97.4 F-98.3 F 67-106 17-20 107-152/28-95 96-98 Physical Exam: General: NAD, A&O3 Lungs: CTA bilaterally Heart: RRR, S1S2 Abd: Soft, non-tender, non-distended. Normoactive bowel sounds Ext: Warm, well-perfused Neuro: CN 2-12 intact CBCD WBC 7.8 K/mm3 (4.0-10.0) 07/04/16 05:05 RBC 3.37 M/mm3 (3.60-5.2) L 07/04/16 05:05 Hgb 9.8 GM/dL (10.7-15.3) L 07/04/16 05:05 Hct 29.7 % (32.4-45.2) L 07/04/16 05:05 MCV 87.9 fl (80-96) 07/04/16 05:05 MCHC 33.2 g/dl (32.0-36.0) 07/04/16 05:05 RDW 14.3 % (11.6-15.6) 07/04/16 05:05 Plt Count 114 K/MM3 (134-434) L 07/04/16 05:05 MPV 8.5 fl (7.5-11.1) 07/04/16 05:05 CMP Sodium 141 mmol/L (136-145) 07/04/16 05:05 Potassium 4.2 mmol/L (3.5-5.1) 07/04/16 05:05 Chloride 110 mmol/L (98-107) H 07/04/16 05:05 Carbon Dioxide 21 mmol/L (21-32) 07/04/16 05:05 Anion Gap 10 (8-16) 07/04/16 05:05 BUN 18 mg/dL (7-18) 07/04/16 05:05 Creatinine 1.0 mg/dL (0.55-1.02) 07/04/16 05:05 Creat Clearance w eGFR 54.05 (>60) 07/04/16 05:05 Random Glucose 185 mg/dL (74-106) H D 07/04/16 05:05 Calcium 8.1 mg/dL (8.5-10.1) L 07/04/16 05:05 Total Bilirubin 0.4 mg/dL (0.2-1.0) 07/04/16 05:05 AST 23 U/L (15-37) 07/04/16 05:05 ALT 16 U/L (12-78) 07/04/16 05:05 Alkaline Phosphatase 88 U/L (45-117) 07/04/16 05:05 Total Protein 6.0 g/dl (6.4-8.2) L 07/04/16 05:05 Albumin 2.9 g/dl (3.4-5.0) L 07/04/16 05:05 CARDIAC ENZYMES Creatine Kinase 88 IU/L (26-192) 07/04/16 05:05 Troponin I 2.08 ng/ml (0.00-0.05) H* 07/04/16 05:05 Imaging: Lower extremity doppler: Right popliteal DVT Chest CTA with positive PE in the left lower lobe. 2 left lung masses with additional nodularity and liver lesions consistent with malignancy (unchanged from 06/19/16) Head CT with focal old infarct in the right side of the brianne. Asymmetric lucency in the left frontoparietal junction. Focal cortical and subcortical enhancement in the right parietal lobe measuring 11x6mm as well as a faint cortical enhancement following the sulcus in the right temporal lobe, posteriorly and faint focal cortical enhancement in the right posterior frontal/ parietal function measuring [id number] in the left periventricular white matter ECHO: LV normal size, LVSF mildly reduced. Moderate mitral valve thickening, moderate mitral annular calcification, mild to moderate MR. Assessment: This is a 76 year old female with PMHx of CAD, CABG, HTN, DM, GERD, CKD, who was recently diagnosed with metastatic cancer (liver, lung, brain) unknown primary, who presented to the ED with shortness of breath and chest pain. Plan: 1) Hematology/Oncology: RLE popliteal DVT, PE - Continue Heparin gtt - Keep O2 >90% - Will need IR tissue biopsy once stable - Will need MRI brain with and without contrast - Discontinue Evista as it can cause thromboembolism - Started on Decadron - Appreciate oncology consult - Appreciate critical care consult - F/u rad onc consult - F/u neuro consult Thrombocytopenia 2/2 metastatic disease? - Continue to trending, 104->114 2) Neuro: Brain mets with surrounding edema - Continue Decadron 4mg IVPB q6h 3) Cardiology: Elevated troponins - EKG with sinus rhythm with occasional PVCs - Per cardiology, elevated trops likely 2/2 PE rather than TN - Troponins trending down - Patient denies chest pain CAD, s/p CABG - Continue to hold ASA for liver biopsy, has been held for greater than 7 days - Continue Coreg - Continue Lipitor - Continue Diovan 4) Endocrine: DM - BGM ACHS - ISS ACHS 5) : CKD - Cr improving 1.2->1 - Continue to monitor 6) F/E/N: - Monitor electrolytes - Diabetic diet 7) Prophylaxis: - OOB ambulating - On heparin gtt - No SCDs 2/2 DVT 8) Dispo: - Requires continued ICU care CODE STATUS: FULL CODE Visit type - Emergency Visit Emergency Visit: Yes ED Registration Date: 07/03/16 Care time: The patient presented to the Emergency Department on the above date and was hospitalized for further evaluation of their emergent condition. - New Patient This patient is new to me today: Yes Date on this admission: 07/04/16 - Critical Care Critical Care patient: Yes Total Critical Care Time (in minutes): 45 Critical Care Statement: The care of this patient involved high complexity decision making to prevent further life threatening deterioration of the patient 's condition and/or to evalute & treat vital organ system(s) failure or risk of failure.
--- NOTE | 2016-07-04 19:02 | CONSULT ---
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 H/O Left sided visual loss Known metastatic cancer to liver, chest and brain of unknown origin. Was scheduled for Liver Bx but described 2-3 days of exertional dyspnea. W/U revealed Popliteal DVT and PE. Now on Heparin and decadron (4mg q 6 hrs) for brain mets. CT of brain: Multiple areas of lucency and edema including R frontoparietal, L frontal and Left parietal. JAIRON: 2 + pretibial edema. No carotid bruits. NEURO: Awake, alert, coop. Mild confusion. Mild fluent aphasia. Rests leaning towards the right side. Full EOM's. No obvious facial. Decreased vision on left but possible left inferior quadrantonopsia. Gag OK Motor: Right drift. Mild Right hemiparesis. Brisk reflexes. Bilateral Babinskis. Coord: No obvious dystaxia. Sensory normal IMP: B/L cerebral dysfunction (L>R) due to multiple mets. SUGGEST: MRI of brain (C-/C+) Continue decadron 4mg IV or PO q 6 hrs while following Glucose carefully. Radiation oncology consultation for whole brain RT. When stable would do MRI's of cervical, thoracic and LS spines as well. Thank you very much, Abraham Uribe MD
[2016-07-04] MEDS: ATORVASTATIN CA 20 MG TABLET (FP) PO SCH (21:24)
[2016-07-04] MEDS: PANTOPRAZOLE SODIUM 100 ML IVPB SCH (21:25)
[2016-07-04] MEDS: ZOLPIDEM TARTRATE 5 MG TABLET PO PRN (21:25)
[2016-07-04] MEDS: CHLORHEXIDINE GLUCONATE 4% CLEANSER FOR DECOLONIZATION TP SCH (21:27)
--- NOTE | 2016-07-04 23:24 | PN ---
Progress Note (short form) - Note Progress Note: Patient seen a d examined awake, alert c/o fatigue Last Vital Signs Temp Pulse Resp BP Pulse Ox 98.4 F 61 19 131/58 97 07/04/16 20:00 07/04/16 20:00 07/04/16 20:00 07/04/16 20:00 07/04/16 09:00 HEENT: KAREN, EOM Intact Oropharynx: No thrush, No mucositis Cor: RSR, No murmurs, No gallops Lungs: Clear to P&A Abd: Soft, Normal bowel sounds, No organomegaly Ext:No significant edema Skin: No rashes, Integument intact Abnormal Lab Results 07/04/16 07/04/16 07/04/16 05:05 05:05 05:05 RBC 3.37 L Hgb 9.8 L Hct 29.7 L Plt Count 114 L Neutrophils % 83.3 H D Monocytes % 1.5 L D PTT (Actin FS) Chloride 110 H Random Glucose 185 H D Calcium 8.1 L Magnesium 1.6 L Troponin I 2.08 H* Total Protein 6.0 L Albumin 2.9 L 07/04/16 07/04/16 08:20 18:05 RBC Hgb Hct Plt Count Neutrophils % Monocytes % PTT (Actin FS) 48.0 H D 46.8 H Chloride Random Glucose Calcium Magnesium Troponin I Total Protein Albumin Current Medications Acetaminophen (Tylenol -) 650 mg PO Q4H PRN PRN Reason: FEVER OR PAIN Atorvastatin Calcium (Lipitor -) 20 mg PO HS [facility] Last Admin: 07/04/16 21:24 Dose: 20 mg Carvedilol (Coreg -) 6.25 mg PO BID [facility] Last Admin: 07/04/16 21:24 Dose: 6.25 mg Chlorhexidine Gluconate (Hibiclens For Decolonization -) 1 applic TP HS [facility] Last Admin: 07/04/16 21:27 Dose: 1 applic Cholecalciferol (Vitamin D3 -) 1,000 unit PO DAILY [facility] Last Admin: 07/04/16 09:23 Dose: 1,000 unit Dexamethasone Sodium Phosphate (Decadron Injection -) 4 mg IVPB Q6H-IV [facility] Last Admin: 07/04/16 20:49 Dose: 4 mg Heparin Sodium (Porcine) (Heparin -) 1,000 unit IVPUSH PRN PRN PRN Reason: Heparin Last Admin: 07/04/16 19:35 Dose: 1,000 unit Heparin Sodium (Porcine) (Heparin -) 5,000 unit IVPUSH PRN PRN PRN Reason: Heparin Heparin Sodium (Porcine) 25, (000 unit/ Sodium Chloride) 500 mls @ 20 mls/hr IV TITR [facility]; 1,000 UNIT/HR PRN Reason: Protocol Last Titration: 07/04/16 19:29 Dose: 1,150 unit/hr Pantoprazole Sodium (Protonix 40mg Ivpb (Pre-Docked)) 100 mls @ 200 mls/hr IVPB HS [facility] Last Admin: 07/04/16 21:25 Dose: 200 mls/hr Sodium Chloride (Normal Saline -) 1,000 mls @ 60 mls/hr IV ASDIR [facility] Last Admin: 07/04/16 20:30 Dose: Not Given Insulin Aspart (Novolog Vial Sliding Scale -) 1 vial SQ ACHS [facility] PRN Reason: Protocol Last Admin: 07/04/16 21:26 Dose: 2 units Mupirocin (Bactroban Ointment (For Decolonization) -) 1 applic NS BID [facility] Stop: 07/08/16 21:59 Last Admin: 07/04/16 21:28 Dose: 1 applic Ondansetron HCl (Zofran Injection) 4 mg IVPB Q6H PRN PRN Reason: NAUSEA Last Admin: 07/04/16 09:23 Dose: 4 mg Valsartan (Diovan -) 160 mg PO DAILY [facility] Last Admin: 07/04/16 09:23 Dose: 160 mg Zolpidem Tartrate (Ambien -) 5 mg PO HS PRN PRN Reason: INSOMNIA Last Admin: 07/04/16 21:25 Dose: 5 mg A/P PAtient , noted to have 2 Lt. lung masses and other scattered nodules, multiple liver masses suspicious for mets and brain lesions around 11-13mm with some surrounding edema Scenario suspicious for metastatic lung cancer? will need tissue biopsy via IR. ASA has been on hold for 7d now. Hypercoagulable state of malignancy with DVT/PE--rt. popliteal and LLL PE On heparin drip thromboembolic disease in patients with brain mets is usually not an absolute contraindication for anticoagulation. In certain cases where renal cell/chorioca /thyroid/melanoma is supected vascular mets have a tendency to bleed . Ct head done shows no e/o bleed will need MRI brain with and without lefty once creatinine improves with hydration given the perilesional edema will consider steroids/protonix neurology consult/rad-onc consult to coordinate with IR for biopsy and filter if necessary before procedure if a/ c is to be interrupted for a prolonged period of time
[2016-07-05] MEDS: DEXAMETHASONE SOD PHOSPHATE 4 MG/1 ML VIAL IVPB SCH ×4 (02:57→20:57)
[2016-07-05] MEDS: INSULIN SLIDING SCALE (NOVOLOG) 1 VIAL SQ SCH ×4 (06:04→22:09)
[2016-07-05 06:20] LABS: MCHC 32.9 g/dl (32.0-36.0); MEAN CELL VOLUME 88.2 fl (80-96); MEAN PLT VOLUME 8.5 fl (7.5-11.1); PLATELET COUNT 160 K/MM3 (134-434); RDW 14.5 % (11.6-15.6); WHITE BLOOD COUNT 12.6 K/mm3 (4.0-10.0)
[2016-07-05 07:40] LABS: ALBUMIN 2.8 g/dl (3.4-5.0); CREATININE 1.1 mg/dL (0.55-1.02)
[2016-07-05 07:55] LABS: BILIRUBIN,TOTAL 0.3 mg/dL (0.2-1.0); TOT PROT 5.9 g/dl (6.4-8.2)
[2016-07-05 08:54] LABS: TROPONIN I 0.89 ng/ml (0.00-0.05)
[2016-07-05] MEDS: HEPARIN - 25,000 UNIT in SODIUM CHLORIDE 495 ML IV SCH ×2 (08:58→11:45)
--- NOTE | 2016-07-05 08:58 | PN ---
Progress Note, Physician Chief Complaint: no acute distress TELE: NSR w/ [facility] - Current Medication List Current Medications: Active Medications Acetaminophen (Tylenol -) 650 mg PO Q4H PRN PRN Reason: FEVER OR PAIN Atorvastatin Calcium (Lipitor -) 20 mg PO HS [facility] Last Admin: 07/04/16 21:24 Dose: 20 mg Carvedilol (Coreg -) 6.25 mg PO BID [facility] Last Admin: 07/04/16 21:24 Dose: 6.25 mg Chlorhexidine Gluconate (Hibiclens For Decolonization -) 1 applic TP HS [facility] Last Admin: 07/04/16 21:27 Dose: 1 applic Cholecalciferol (Vitamin D3 -) 1,000 unit PO DAILY [facility] Last Admin: 07/04/16 09:23 Dose: 1,000 unit Dexamethasone Sodium Phosphate (Decadron Injection -) 4 mg IVPB Q6H-IV [facility] Last Admin: 07/05/16 02:57 Dose: 4 mg Heparin Sodium (Porcine) (Heparin -) 1,000 unit IVPUSH PRN PRN PRN Reason: Heparin Last Admin: 07/04/16 19:35 Dose: 1,000 unit Heparin Sodium (Porcine) (Heparin -) 5,000 unit IVPUSH PRN PRN PRN Reason: Heparin Last Admin: 07/05/16 01:45 Dose: 5,000 unit Heparin Sodium (Porcine) 25, (000 unit/ Sodium Chloride) 500 mls @ 20 mls/hr IV TITR ANIVAL; 1,000 UNIT/HR PRN Reason: Protocol Last Titration: 07/05/16 06:45 Dose: 0 unit/hr Pantoprazole Sodium (Protonix 40mg Ivpb (Pre-Docked)) 100 mls @ 200 mls/hr IVPB HS [facility] Last Admin: 07/04/16 21:25 Dose: 200 mls/hr Sodium Chloride (Normal Saline -) 1,000 mls @ 60 mls/hr IV ASDIR [facility] Last Admin: 07/04/16 20:30 Dose: Not Given Insulin Aspart (Novolog Vial Sliding Scale -) 1 vial SQ ACHS [facility] PRN Reason: Protocol Last Admin: 07/05/16 06:04 Dose: 2 units Mupirocin (Bactroban Ointment (For Decolonization) -) 1 applic NS BID [facility] Stop: 07/08/16 21:59 Last Admin: 07/04/16 21:28 Dose: 1 applic Ondansetron HCl (Zofran Injection) 4 mg IVPB Q6H PRN PRN Reason: NAUSEA Last Admin: 07/04/16 09:23 Dose: 4 mg Valsartan (Diovan -) 160 mg PO DAILY [facility] Last Admin: 07/04/16 09:23 Dose: 160 mg Zolpidem Tartrate (Ambien -) 5 mg PO HS PRN PRN Reason: INSOMNIA Last Admin: 07/04/16 21:25 Dose: 5 mg - Objective Vital Signs: Vital Signs Temperature 98.4 F 07/05/16 06:00 Pulse Rate 67 07/05/16 07:56 Respiratory Rate 18 07/05/16 07:56 Blood Pressure 120/64 07/05/16 07:49 O2 Sat by Pulse Oximetry (%) 97 07/04/16 09:00 Constitutional: Yes: No Distress Cardiovascular: Yes: Regular Rate and Rhythm Respiratory: Yes: CTA Bilaterally Gastrointestinal: Yes: Soft Edema: Yes Edema: LLE: 1+, RLE: 1+ Neurological: Yes: Alert, Oriented Labs: CBC, BMP 07/05/16 05:15 07/05/16 05:15 INR, PTT INR 1.32 (0.82-1.09) H 07/03/16 10:30 Laboratory Tests 07/05/16 07/05/16 07/05/16 05:15 05:15 05:15 WBC 12.6 H D Hgb 9.2 L Hct 28.0 L Plt Count 160 D PTT (Actin FS) 171.1 H D Potassium 4.2 BUN 23 H D Creatinine 1.1 H Troponin I 0.89 H* Assessment/Plan Assessment/Plan 76F w/ CAD s/p CABG, recently diagnosed with probable metastatic CA of unknown primary (liver, lungs, brain) admitted with 2 days of SOB and SSCP, found to have evidence of an acute PE. REC: Echo showed mildly reduce LV function, no comment on RV function Elevated troponin most likely secondary to acute PE, not type 1 AL Remains on heparin for PE/DVT and has been hemodynamically stable. Cont care as per CCM/Pulm
[2016-07-05] MEDS: CHOLECALCIFEROL (VITAMIN D3) 1,000 UNIT TABLET (FP) PO SCH (09:00)
[2016-07-05] MEDS: CARVEDILOL 6.25 MG TABLET (FP) PO SCH ×2 (09:00→21:11)
[2016-07-05] MEDS: VALSARTAN 160 MG TABLET (UD) PO SCH (09:00)
[2016-07-05] MEDS: MUPIROCIN 2% TOPICAL OINTMENT FOR DECOLONIZATION NS SCH ×2 (09:01→21:11)
--- NOTE | 2016-07-05 11:03 | PN ---
Progress Note (short form) - Note Progress Note: Radiation Oncology (full consult to follow) Pt seen and examined, chart/films reviewed. 76 former smoker a/w DVT/PE and likely lung malignancy w mets to liver and brain. Hx of prior RT to brain/eye at [place] [address] head reviewed, multiple >4 enhancing lesions w edema. Awaiting IVC filter and liver bx. Will need prior RT records to determine if she is a candidate for additional RT/ WBRT. Proceed w bx and cont decadron.
--- NOTE | 2016-07-05 13:19 | PN ---
Teaching Attending Note Name of Resident: Sandeep Garcia ATTENDING PHYSICIAN STATEMENT I saw and evaluated the patient. I reviewed the resident's note and discussed the case with the resident. I agree with the resident's findings and plan as documented. SUBJECTIVE: Patient seen and examined in the ICU. Awake and alert. Frustrated about her condition. Denies CP or SOB. On IV Heparin. Intake & Output 07/02/16 07/03/16 07/04/16 07/05/16 23:59 23:59 23:59 23:59 Intake Total 2327 920 Output Total 1700 350 Balance 627 570 Weight 198 lb 3.2 oz 198 lb 198 lb Last Vital Signs Temp Pulse Resp BP Pulse Ox 98.4 F 67 18 120/64 97 07/05/16 06:00 07/05/16 07:56 07/05/16 07:56 07/05/16 07:49 07/04/16 09:00 Active Medications Acetaminophen (Tylenol -) 650 mg PO Q4H PRN PRN Reason: FEVER OR PAIN Atorvastatin Calcium (Lipitor -) 20 mg PO HS [facility] Last Admin: 07/04/16 21:24 Dose: 20 mg Carvedilol (Coreg -) 6.25 mg PO BID [facility] Last Admin: 07/05/16 09:00 Dose: 6.25 mg Chlorhexidine Gluconate (Hibiclens For Decolonization -) 1 applic TP HS [facility] Last Admin: 07/04/16 21:27 Dose: 1 applic Cholecalciferol (Vitamin D3 -) 1,000 unit PO DAILY [facility] Last Admin: 07/05/16 09:00 Dose: 1,000 unit Dexamethasone Sodium Phosphate (Decadron Injection -) 4 mg IVPB Q6H-IV [facility] Last Admin: 07/05/16 08:58 Dose: 4 mg Heparin Sodium (Porcine) (Heparin -) 1,000 unit IVPUSH PRN PRN PRN Reason: Heparin Last Admin: 07/04/16 19:35 Dose: 1,000 unit Heparin Sodium (Porcine) (Heparin -) 5,000 unit IVPUSH PRN PRN PRN Reason: Heparin Last Admin: 07/05/16 01:45 Dose: 5,000 unit Heparin Sodium (Porcine) 25, (000 unit/ Sodium Chloride) 500 mls @ 20 mls/hr IV TITR ANIVAL; 1,000 UNIT/HR PRN Reason: Protocol Last Admin: 07/05/16 11:45 Dose: Not Given Pantoprazole Sodium (Protonix 40mg Ivpb (Pre-Docked)) 100 mls @ 200 mls/hr IVPB HS [facility] Last Admin: 07/04/16 21:25 Dose: 200 mls/hr Sodium Chloride (Normal Saline -) 1,000 mls @ 60 mls/hr IV ASDIR [facility] Last Admin: 07/04/16 20:30 Dose: Not Given Insulin Aspart (Novolog Vial Sliding Scale -) 1 vial SQ ACHS [facility] PRN Reason: Protocol Last Admin: 07/05/16 11:53 Dose: 2 units Mupirocin (Bactroban Ointment (For Decolonization) -) 1 applic NS BID [facility] Stop: 07/08/16 21:59 Last Admin: 07/05/16 09:01 Dose: 1 applic Ondansetron HCl (Zofran Injection) 4 mg IVPB Q6H PRN PRN Reason: NAUSEA Last Admin: 07/04/16 09:23 Dose: 4 mg Valsartan (Diovan -) 160 mg PO DAILY [facility] Last Admin: 07/05/16 09:00 Dose: 160 mg Zolpidem Tartrate (Ambien -) 5 mg PO HS PRN PRN Reason: INSOMNIA Last Admin: 07/04/16 21:25 Dose: 5 mg Constitutional: Yes: Awake and alert Eyes: Yes: Conjunctiva Clear, EOM Intact HENT: Yes: Atraumatic, Normocephalic Neck: Yes: Supple, Trachea Midline Cardiovascular: Yes: Regular Rate and Rhythm Respiratory: Yes: Regular, CTA Bilaterally Gastrointestinal: Yes: Normal Bowel Sounds, Soft. No: Tenderness Edema: No Neurological: Yes: Alert, Oriented Laboratory Results - last 24 hr 07/03/16 07/04/16 07/04/16 22:53 06:04 12:43 WBC RBC Hgb Hct MCV MCHC RDW Plt Count MPV PTT (Actin FS) Sodium Potassium Chloride Carbon Dioxide Anion Gap BUN Creatinine Creat Clearance w eGFR POC Glucometer 190.56429 205.21719 194.14326 Random Glucose Calcium Total Bilirubin AST ALT Alkaline Phosphatase Creatine Kinase Troponin I Total Protein Albumin 07/04/16 07/04/16 07/04/16 17:58 18:05 21:22 WBC RBC Hgb Hct MCV MCHC RDW Plt Count MPV PTT (Actin FS) 46.8 H Sodium Potassium Chloride Carbon Dioxide Anion Gap BUN Creatinine Creat Clearance w eGFR POC Glucometer 225.58179 184.98084 Random Glucose Calcium Total Bilirubin AST ALT Alkaline Phosphatase Creatine Kinase Troponin I Total Protein Albumin 07/05/16 07/05/16 07/05/16 00:45 05:15 05:15 WBC 12.6 H D RBC 3.18 L Hgb 9.2 L Hct 28.0 L MCV 88.2 MCHC 32.9 RDW 14.5 Plt Count 160 D MPV 8.5 PTT (Actin FS) 35.8 H 171.1 H D Sodium Potassium Chloride Carbon Dioxide Anion Gap BUN Creatinine Creat Clearance w eGFR POC Glucometer Random Glucose Calcium Total Bilirubin AST ALT Alkaline Phosphatase Creatine Kinase Troponin I Total Protein Albumin 07/05/16 07/05/16 05:15 05:31 WBC RBC Hgb Hct MCV MCHC RDW Plt Count MPV PTT (Actin FS) Sodium 145 Potassium 4.2 Chloride 112 H Carbon Dioxide 20 L Anion Gap 13 BUN 23 H D Creatinine 1.1 H Creat Clearance w eGFR 48.42 POC Glucometer 199.68456 Random Glucose 167 H Calcium 8.0 L Total Bilirubin 0.3 D AST 17 D ALT 15 Alkaline Phosphatase 74 Creatine Kinase 38 Troponin I 0.89 H* Total Protein 5.9 L Albumin 2.8 L Problem List - Problems (1) Pulmonary embolism Code(s): I26.99 - OTHER PULMONARY EMBOLISM WITHOUT ACUTE COR PULMONALE Qualifiers: Pulmonary embolism type: other Chronicity: acute Acute cor pulmonale presence: without acute cor pulmonale Qualified Code(s): I26.99 - Other pulmonary embolism without acute cor pulmonale (2) DVT (deep venous thrombosis) Code(s): I82.409 - ACUTE EMBOLISM AND THOMBOS UNSP DEEP VN UNSP LOWER EXTREMITY Qualifiers: DVT location: lower extremity Affected thrombotic vein of extremity: popliteal Laterality: right Chronicity: acute Qualified Code(s): I82.431 - Acute embolism and thrombosis of right popliteal vein (3) Chest pain Code(s): R07.9 - CHEST PAIN, UNSPECIFIED Qualifiers: Chest pain type: unspecified Qualified Code(s): R07.9 - Chest pain, unspecified (4) Elevated troponin Code(s): R79.89 - OTHER SPECIFIED ABNORMAL FINDINGS OF BLOOD CHEMISTRY (5) Pulmonary hypertension Code(s): I27.2 - OTHER SECONDARY PULMONARY HYPERTENSION (6) Lung mass Code(s): R91.8 - OTHER NONSPECIFIC ABNORMAL FINDING OF LUNG FIELD (7) Brain metastases Code(s): C79.31 - SECONDARY MALIGNANT NEOPLASM OF BRAIN Assessment/Plan Acute Pulmonary Emboli DVT Pulmonary HTN 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 CAD s/p CABG HTN DM - AC with IV heparin - neuro checks - will need tissue diagnosis - O2 to keep SpO2 >90% - may need IVC filter if unable to anticoagulate - Telemetry/cardiac monitoring Dr Ricci CCTime 35"
--- NOTE | 2016-07-05 13:27 | PN ---
Physical Exam: SUBJECTIVE: Patient seen and examined. She was alert and oriented to person, place and time on my exam. She denies any chest pain or shortness of breath, tolerating room air. OBJECTIVE: Vital Signs Period Temp Pulse Resp BP Sys/[place] Pulse Ox Last 24 Hr 98.4 F-98.7 F 60-85 17-20 96-131/46-78 GENERAL: The patient is awake, alert, and fully oriented, in no acute distress. HEAD: Normal with no signs of trauma. EYES: PERRL, extraocular movements intact, sclera anicteric, conjunctiva clear. No ptosis. ENT: Ears normal, nares patent, oropharynx clear without exudates, moist mucous membranes. NECK: Trachea midline, full range of motion, supple. LUNGS: Breath sounds equal, clear to auscultation bilaterally, no wheezes, no crackles, no accessory muscle use. HEART: Regular rate and rhythm, S1, S2 without murmur, rub or gallop. ABDOMEN: Soft, nontender, nondistended, normoactive bowel sounds, no guarding, no rebound, no hepatosplenomegaly, no masses. EXTREMITIES: 2+ pulses, warm, well-perfused, no edema. NEUROLOGICAL: Normal speech, gait not observed. PSYCH: Normal mood, normal affect. SKIN: Warm, dry, normal turgor, no rashes or lesions noted Laboratory Results - last 24 hr 07/03/16 07/04/16 07/04/16 22:53 06:04 12:43 WBC RBC Hgb Hct MCV MCHC RDW Plt Count MPV PTT (Actin FS) Sodium Potassium Chloride Carbon Dioxide Anion Gap BUN Creatinine Creat Clearance w eGFR POC Glucometer 190.60096 205.67071 194.02901 Random Glucose Calcium Total Bilirubin AST ALT Alkaline Phosphatase Creatine Kinase Troponin I Total Protein Albumin 07/04/16 07/04/16 07/04/16 17:58 18:05 21:22 WBC RBC Hgb Hct MCV MCHC RDW Plt Count MPV PTT (Actin FS) 46.8 H Sodium Potassium Chloride Carbon Dioxide Anion Gap BUN Creatinine Creat Clearance w eGFR POC Glucometer 225.12417 184.03925 Random Glucose Calcium Total Bilirubin AST ALT Alkaline Phosphatase Creatine Kinase Troponin I Total Protein Albumin 07/05/16 07/05/16 07/05/16 00:45 05:15 05:15 WBC 12.6 H D RBC 3.18 L Hgb 9.2 L Hct 28.0 L MCV 88.2 MCHC 32.9 RDW 14.5 Plt Count 160 D MPV 8.5 PTT (Actin FS) 35.8 H 171.1 H D Sodium Potassium Chloride Carbon Dioxide Anion Gap BUN Creatinine Creat Clearance w eGFR POC Glucometer Random Glucose Calcium Total Bilirubin AST ALT Alkaline Phosphatase Creatine Kinase Troponin I Total Protein Albumin 07/05/16 07/05/16 07/05/16 05:15 05:31 12:30 WBC RBC Hgb Hct MCV MCHC RDW Plt Count MPV PTT (Actin FS) 54.2 H D Sodium 145 Potassium 4.2 Chloride 112 H Carbon Dioxide 20 L Anion Gap 13 BUN 23 H D Creatinine 1.1 H Creat Clearance w eGFR 48.42 POC Glucometer 199.80787 Random Glucose 167 H Calcium 8.0 L Total Bilirubin 0.3 D AST 17 D ALT 15 Alkaline Phosphatase 74 Creatine Kinase 38 Troponin I 0.89 H* Total Protein 5.9 L Albumin 2.8 L Active Medications Generic Name Dose Route Start Last Admin Trade Name Freq PRN Reason Stop Dose Admin Acetaminophen 650 mg 07/03/16 15:50 Tylenol - PO Q4H PRN FEVER OR PAIN Atorvastatin Calcium 20 mg 07/03/16 22:00 07/04/16 21:24 Lipitor - PO 20 mg HS [facility] Administration Carvedilol 6.25 mg 07/03/16 22:00 07/05/16 09:00 Coreg - PO 6.25 mg BID [facility] Administration Chlorhexidine Gluconate 1 applic 07/03/16 22:00 07/04/16 21:27 Hibiclens For Decolonization - TP 1 applic HS [facility] Administration Cholecalciferol 1,000 unit 07/04/16 10:00 07/05/16 09:00 Vitamin D3 - PO 1,000 unit DAILY [facility] Administration Dexamethasone Sodium Phosphate 4 mg 07/03/16 18:15 07/05/16 08:58 Decadron Injection - IVPB 4 mg Q6H-IV [facility] Administration Heparin Sodium (Porcine) 1,000 unit 07/03/16 11:16 07/04/16 19:35 Heparin - IVPUSH 1,000 unit PRN PRN Administration Heparin Heparin Sodium (Porcine) 5,000 unit 07/03/16 11:16 07/05/16 01:45 Heparin - IVPUSH 5,000 unit PRN PRN Administration Heparin Heparin Sodium (Porcine) 25, 500 mls @ 20 mls/hr 07/03/16 11:30 07/05/16 11:45 000 unit/ Sodium Chloride IV Not Given TITR [facility] Protocol 1,000 UNIT/HR Pantoprazole Sodium 100 mls @ 200 mls/hr 07/03/16 22:00 07/04/16 21:25 Protonix 40mg Ivpb (Pre-Docked) IVPB 200 mls/hr HS [facility] Administration Sodium Chloride 1,000 mls @ 60 mls/hr 07/03/16 18:30 07/04/16 20:30 Normal Saline - IV Not Given ASDIR [facility] Insulin Aspart 1 vial 07/03/16 16:30 07/05/16 11:53 Novolog Vial Sliding Scale - SQ 2 units ACHS [facility] Administration Protocol Mupirocin 1 applic 07/03/16 22:00 07/05/16 09:01 Bactroban Ointment (For Decolonization) - NS 07/08/16 21:59 1 applic BID [facility] Administration Ondansetron HCl 4 mg 07/03/16 15:50 07/04/16 09:23 Zofran Injection IVPB 4 mg Q6H PRN Administration NAUSEA Valsartan 160 mg 07/04/16 10:00 07/05/16 09:00 Diovan - PO 160 mg DAILY [facility] Administration Zolpidem Tartrate 5 mg 07/04/16 15:58 07/04/16 21:25 Ambien - PO 5 mg HS PRN Administration INSOMNIA ASSESSMENT/PLAN: Patient is a 76 year old female with a significant past medical history of 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 She presents to the ED on 07/03/2016 with chest pain radiating to her left arm with shortness of breath. She was found to have a right lower extremity DVT and LLL Pulmonary Embolism on admission. Imaging: Chest CT/Chest CTA 07/03/2016 - Positive PE LL arteral branches. 2 left lung masses with additional nod. and liver lesions consistent with malignancy. CT/Head CT 07/03/2016 - Moderate atrophy and chronic microvascular ischemic changes focal cortical and subcortical enhancements in the right parital lobe, lesions measuring 11 x 6cm findings suspicions for brain mets. Hematology: DVT/Pulmonary Embolism Assessment/Plan: Chest CT/Chest CTA 07/03/2016 - Positive PE LL arteral branches. 2 left lung masses with additional nod. and liver lesions consistent with malignancy. On a heparin drip Hematology following tolerating room air, oxygen sats stable Monitor closely Oncology: Metastatic cancer (liver, lung, brain metastases) unknown primary Assessment/Plan: Pending IR tissue biopsy and MRI of brain pending renal function improvement On Decadron 4mg q6 hours Needs ongoing neuro assessment, was reported to be confused yesterday Hematology/Oncology following Tolerating room air Cardiology: Elevated troponins - acute Assessment/Plan: Troponins 0.91, 3.61, 2.08, 0.89 Likely due to PE, not likely OR Cardiology following Coronary Artery Disease s/p CABG Assessment/Plan: on Diovan, Coreq, ASA on hold for liver biopsy Hypertension - chronic Assessment/Plan: Controlled on Diovan, Coreq Hyperlipidemia - chronic Assessment/Plan: On Lipitor ID: UTI - acute Assessment/Plan: Urine cultures with lactose fermenting negative bacilli Leukocytosis increased from 7.8 to 12.6, remains afebrile, vitals stable ID consulted Endocrine: Assessment/Plan: Diabetes Mellitus Novolog sliding scale Monitor BGMs F.E.N. Fluids: Normal saline @ 60cc/hr Electrolytes: BMP daily Nutrition: Diabetic diet Prophylaxis: DVT: Heparin drip GI: Protonix Visit type - Emergency Visit Emergency Visit: Yes ED Registration Date: 07/03/16 Care time: The patient presented to the Emergency Department on the above date and was hospitalized for further evaluation of their emergent condition. - New Patient This patient is new to me today: Yes Date on this admission: 07/06/16 - Critical Care Critical Care patient: Yes Total Critical Care Time (in minutes): 45 Critical Care Statement: The care of this patient involved high complexity decision making to prevent further life threatening deterioration of the patient 's condition and/or to evalute & treat vital organ system(s) failure or risk of failure. - Discharge Referral Referred to [facility] No
--- NOTE | 2016-07-05 14:49 | PN ---
Physical Exam: SUBJECTIVE: Patient seen and examined at bedside. At mental status baseline. Combative at times, but generally agrees with proposed course of treatment. States she doesnt feel sick and breathing is fine. OBJECTIVE: Vital Signs Period Temp Pulse Resp BP Sys/[place] Pulse Ox Last 24 Hr 98.4 F-98.4 F 60-85 17-20 96-131/46-78 Constitutional: Yes: Awake and alert Eyes: Yes: Conjunctiva Clear, EOM Intact HENT: Yes: Atraumatic, Normocephalic Neck: Yes: Supple, Trachea Midline Cardiovascular: Yes: Regular Rate and Rhythm Respiratory: Yes: Regular, CTA Bilaterally Gastrointestinal: Yes: Normal Bowel Sounds, Soft. No: Tenderness Edema: No Neurological: Yes: Alert, Oriented Laboratory Results - last 24 hr 07/03/16 07/04/16 07/04/16 22:53 06:04 12:43 WBC RBC Hgb Hct MCV MCHC RDW Plt Count MPV PTT (Actin FS) Sodium Potassium Chloride Carbon Dioxide Anion Gap BUN Creatinine Creat Clearance w eGFR POC Glucometer [phone] Random Glucose Calcium Total Bilirubin AST ALT Alkaline Phosphatase Creatine Kinase Troponin I Total Protein Albumin 07/04/16 07/04/16 07/04/16 17:58 18:05 21:22 WBC RBC Hgb Hct MCV MCHC RDW Plt Count MPV PTT (Actin FS) 46.8 H Sodium Potassium Chloride Carbon Dioxide Anion Gap BUN Creatinine Creat Clearance w eGFR POC Glucometer [phone] Random Glucose Calcium Total Bilirubin AST ALT Alkaline Phosphatase Creatine Kinase Troponin I Total Protein Albumin 07/05/16 07/05/16 07/05/16 00:45 05:15 05:15 WBC 12.6 H D RBC 3.18 L Hgb 9.2 L Hct 28.0 L MCV 88.2 MCHC 32.9 RDW 14.5 Plt Count 160 D MPV 8.5 PTT (Actin FS) 35.8 H 171.1 H D Sodium Potassium Chloride Carbon Dioxide Anion Gap BUN Creatinine Creat Clearance w eGFR POC Glucometer Random Glucose Calcium Total Bilirubin AST ALT Alkaline Phosphatase Creatine Kinase Troponin I Total Protein Albumin 07/05/16 07/05/16 07/05/16 05:15 05:31 12:30 WBC RBC Hgb Hct MCV MCHC RDW Plt Count MPV PTT (Actin FS) 54.2 H D Sodium 145 Potassium 4.2 Chloride 112 H Carbon Dioxide 20 L Anion Gap 13 BUN 23 H D Creatinine 1.1 H Creat Clearance w eGFR 48.42 POC Glucometer [phone] Random Glucose 167 H Calcium 8.0 L Total Bilirubin 0.3 D AST 17 D ALT 15 Alkaline Phosphatase 74 Creatine Kinase 38 Troponin I 0.89 H* Total Protein 5.9 L Albumin 2.8 L Active Medications Generic Name Dose Route Start Last Admin Trade Name Freq PRN Reason Stop Dose Admin Acetaminophen 650 mg 07/03/16 15:50 Tylenol - PO Q4H PRN FEVER OR PAIN Atorvastatin Calcium 20 mg 07/03/16 22:00 07/04/16 21:24 Lipitor - PO 20 mg HS ANIVAL Administration Carvedilol 6.25 mg 07/03/16 22:00 07/05/16 09:00 Coreg - PO 6.25 mg BID ANIVAL Administration Chlorhexidine Gluconate 1 applic 07/03/16 22:00 07/04/16 21:27 Hibiclens For Decolonization - TP 1 applic HS ANIVAL Administration Cholecalciferol 1,000 unit 07/04/16 10:00 07/05/16 09:00 Vitamin D3 - PO 1,000 unit DAILY ANIVAL Administration Dexamethasone Sodium Phosphate 4 mg 07/03/16 18:15 07/05/16 14:46 Decadron Injection - IVPB 4 mg Q6H-IV ANIVAL Administration Heparin Sodium (Porcine) 1,000 unit 07/03/16 11:16 07/04/16 19:35 Heparin - IVPUSH 1,000 unit PRN PRN Administration Heparin Heparin Sodium (Porcine) 5,000 unit 07/03/16 11:16 07/05/16 01:45 Heparin - IVPUSH 5,000 unit PRN PRN Administration Heparin Heparin Sodium (Porcine) 25, 500 mls @ 20 mls/hr 07/03/16 11:30 07/05/16 11:45 000 unit/ Sodium Chloride IV Not Given T[facility]R [facility] Protocol 1,000 UNIT/HR Pantoprazole Sodium 100 mls @ 200 mls/hr 07/03/16 22:00 07/04/16 21:25 Protonix 40mg Ivpb (Pre-Docked) IVPB 200 mls/hr HS ANIVAL Administration Sodium Chloride 1,000 mls @ 60 mls/hr 07/03/16 18:30 07/04/16 20:30 Normal Saline - IV Not Given ASDIR ANIVAL Insulin Aspart 1 vial 07/03/16 16:30 07/05/16 11:53 Novolog Vial Sliding Scale - SQ 2 units ACHS ANIVAL Administration Protocol Mupirocin 1 applic 07/03/16 22:00 07/05/16 09:01 Bactroban Ointment (For Decolonization) - NS 07/08/16 21:59 1 applic BID ANIVAL Administration Ondansetron HCl 4 mg 07/03/16 15:50 07/04/16 09:23 Zofran Injection IVPB 4 mg Q6H PRN Administration NAUSEA Valsartan 160 mg 07/04/16 10:00 07/05/16 09:00 Diovan - PO 160 mg DAILY ANIVAL Administration Zolpidem Tartrate 5 mg 07/04/16 15:58 07/04/16 21:25 Ambien - PO 5 mg HS PRN Administration INSOMNIA ASSESSMENT/PLAN: Patient is a 76 year old female with Lung mass & likely mets to liver/brain who presents to ED with RLE DVT & LLL PE. #LLL Pulmonary Embolism, DVT -Heparin started -Home/onc following -keep o2 sat>90% #Lung Mass with likely mets to liver/brain -likely metastatic lung cancer -Will need IR tissue biopsy once stable -Will need MRI brain with and without contrast -neuro checks -continue decadron -oncology, rad/onc following #Elevated troponins -cardiology following -likely due to PE, not OK -trending down #CAD s/p CABG, HTN -Contonue Diovan, Coreg, Lipitor -holding aspirin for lvier biopsy #DM -ISS with FS ACHS FEN: -NS @60mls/hr -monitor electrolytes -Diabetic diet Visit type - Emergency Visit Emergency Visit: Yes ED Registration Date: 07/03/16 Care time: The patient presented to the Emergency Department on the above date and was hospitalized for further evaluation of their emergent condition. - New Patient This patient is new to me today: Yes Date on this admission: 07/05/16 - Critical Care Critical Care patient: Yes Total Critical Care Time (in minutes): 45 Critical Care Statement: The care of this patient involved high complexity decision making to prevent further life threatening deterioration of the patient 's condition and/or to evalute & treat vital organ system(s) failure or risk of failure.
--- NOTE | 2016-07-05 15:31 | CONSULT ---
Consult Consult Specialty:: infectious diseases Reason for Consultation:: leukocytosis - History of Present Illness Chief Complaint: chest pain. not feeling well History of Present Illness: this is a 76 y/o female with a very recent diagnosis of lung mass with mets to the liver and to the brain who was scheduled to get a biopsy done patient noticed that she was having chest pain and came to the emergency room for work up and was found to ahve pul embolism and a dvt and was admitted to icu. according to the sone patient was not making sense for few days and on work up was found to ahve brain mets with edema surrounding patient was started on steroids currently patient is very calm and coherent and son is in the room i was called in to see if there is any evidence of infection patient currently is no c/o of any thing and looks comfortable patients family is very frustrated and wants to go to other hospital but are waiting on the biopsy - History Source History Provided By: Patient, Family Member Limitations to Obtaining History: No Limitations - Past Medical History Cardio/Vascular: Yes: CAD, HTN Endocrine: Yes: Diabetes Mellitus - Alcohol/Substance Use Hx Alcohol Use: No - Smoking History Smoking history: Never smoked Home Medications - Allergies Allergies/Adverse Reactions: Allergies Allergy/AdvReac Type Severity Reaction Status Date / Time No Known Allergies Allergy Verified 07/03/16 10:14 - Home Medications Home Medications: Ambulatory Orders Aspirin [Aspirin EC] 81 mg PO DAILY 11/01/15 Atorvastatin Ca [Lipitor] 20 mg PO HS 11/01/15 Carvedilol [Coreg] 6.25 mg PO BID 11/01/15 Metformin HCl [Glucophage -] 1,000 mg PO BID 11/01/15 Olmesartan Medoxomil [Benicar -] 20 mg PO DAILY 11/01/15 Raloxifene HCl [Evista (Nf) -] 60 mg PO DAILY 11/01/15 Cholecalciferol (Vitamin D3) [Vitamin D3 -] 1,000 unit PO DAILY 07/03/16 Family Disease History - Family Disease History Other Family History: non-contributory Review of Systems - Review of Systems Constitutional: reports: Lethargy, Other Eyes: reports: No Symptoms HENT: reports: No Symptoms Neck: reports: No Symptoms Cardiovascular: reports: Chest Pain Respiratory: reports: SOB Gastrointestinal: reports: No Symptoms Genitourinary: reports: No Symptoms Musculoskeletal: reports: No Symptoms Integumentary: reports: No Symptoms Neurological: reports: Confusion Hematology/Lymphatic: reports: No Symptoms Psychiatric: reports: No Symptoms Physical Exam Vital Signs: Vital Signs Temperature 98.4 F 07/05/16 06:00 Pulse Rate 67 07/05/16 07:56 Respiratory Rate 18 07/05/16 07:56 Blood Pressure 120/64 07/05/16 07:49 O2 Sat by Pulse Oximetry (%) 97 07/04/16 09:00 Constitutional: Yes: No Distress, Calm Eyes: Yes: Conjunctiva Clear HENT: Yes: Atraumatic Neck: Yes: Supple, Trachea Midline Cardiovascular: Yes: Regular Rate and Rhythm Respiratory: Yes: Regular, CTA Bilaterally Gastrointestinal: Yes: Normal Bowel Sounds, Soft Musculoskeletal: Yes: WNL Extremities: Yes: WNL Neurological: Yes: Alert, Oriented Psychiatric: Yes: Alert Labs: CBC, BMP 07/05/16 05:15 07/05/16 05:15 Imaging - Results Chest X-ray: Report Reviewed, Image Reviewed Cat Scan: Report Reviewed, Image Reviewed Other: Report Reviewed, Image Reviewed Assessment/Plan this patient with a very high chance of having metastatic lung ca including brain mets and liver mets,who has developed pul embolism and dvt probably as consequence of the primary process patient will need a tissue diagnosis and the patient is waiting for the same as the plan is to stabilize the patient and then do biopsy Problem List - Problems (1) Pulmonary embolism Code(s): I26.99 - OTHER PULMONARY EMBOLISM WITHOUT ACUTE COR PULMONALE Qualifiers: Pulmonary embolism type: other Chronicity: acute Acute cor pulmonale presence: without acute cor pulmonale Qualified Code(s): I26.99 - Other pulmonary embolism without acute cor pulmonale (2) DVT (deep venous thrombosis) Code(s): I82.409 - ACUTE EMBOLISM AND THOMBOS UNSP DEEP VN UNSP LOWER EXTREMITY Qualifiers: DVT location: lower extremity Affected thrombotic vein of extremity: popliteal Laterality: right Chronicity: acute Qualified Code(s): I82.431 - Acute embolism and thrombosis of right popliteal vein (3) Chest pain Code(s): R07.9 - CHEST PAIN, UNSPECIFIED Qualifiers: Chest pain type: unspecified Qualified Code(s): R07.9 - Chest pain, unspecified (4) Elevated troponin Code(s): R79.89 - OTHER SPECIFIED ABNORMAL FINDINGS OF BLOOD CHEMISTRY (5) Pulmonary hypertension Code(s): I27.2 - OTHER SECONDARY PULMONARY HYPERTENSION (6) Lung mass Code(s): R91.8 - OTHER NONSPECIFIC ABNORMAL FINDING OF LUNG FIELD (7) Brain metastases Code(s): C79.31 - SECONDARY MALIGNANT NEOPLASM OF BRAIN at the moment i think that the patient is having infection is very less i will hold off on starting abx i ahve discuseed the plan in great detail with the patients son and the patient plan will hold of on starting any abx continue mgmt of dvt await for biopsy of the lesion continue supportive measures cc time 40 min
--- NOTE | 2016-07-05 16:02 | CONS ---
DATE OF CONSULTATION: 07/05/2016 REFERRING PHYSICIAN: Lizet Pineda M.D. REASON FOR CONSULTATION: Probable brain metastases. HISTORY OF PRESENT ILLNESS: Ms. Johnson is a 76-year-old ex-smoker who was recently found to have masses in the lung, brain, and liver suspicious for metastatic disease. She was scheduled for a liver biopsy when she was admitted for complaint of chest pain and exertional dyspnea. Workup including ultrasound of the lower extremity and CT angiography revealed a right popliteal DVT and pulmonary embolism of the left lower lobe as well as 2 lung masses and multiple hepatic masses. CT of the head shows no intracranial hemorrhage but reveals multiple bilateral enhancing lesions with surrounding edema. She is on heparin drip. She is monitored in the intensive care unit. She reports history of possible radiation therapy to the brain for a benign condition 9 years ago at [facility]. She reports weight loss, decreased appetite, fatigue, and memory difficulties. Decadron has been started. She is awaiting biopsy and possible IVC filter. PAST MEDICAL HISTORY: Coronary artery disease status post CABG, diabetes mellitus type 2, hypertension, GERD. PAST SURGICAL HISTORY: Appendectomy and CABG in 2005. ALLERGIES: No known drug allergies. CURRENT MEDICATIONS: Decadron 4 mg IV q.6 hours. Diovan. Bactroban. Heparin IV. Coreg. Lipitor. Insulin. Protonix. SOCIAL HISTORY: She is . She has 2 sons and 5 grandchildren. 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 She smokes less than 1 pack per day for about 20 years and quit 15 years ago. No significant alcohol use. FAMILY HISTORY: Noncontributory. REVIEW OF SYSTEMS: As noted above. PHYSICAL EXAMINATION: General: Well appearing, alert and oriented x3 in the ICU bed, in no acute distress. Vital Signs: Temperature 98.4, blood pressure 120/62, pulse 85, respiratory rate 18. HEENT: Normocephalic, atraumatic. Moist mucous membranes. Clear oral cavity. Neck: No adenopathy. Chest: Clear bilaterally. Cardiovascular: Regular. Abdomen: Soft, nontender. Nondistended. Extremities: Bilateral lower extremity edema. No cord. Neurologic: Answers appropriately. Short term memory is intact. halfway memory fair. Cranial nerves 2-12 are intact. No gross sensory, motor deficits. Coordination and gait were not tested. LABORATORY DATA: WBC 12.6, hemoglobin 9.2, platelets 160,000. Electrolytes within normal limits. BUN 23, creatinine 1.1, calcium 8.0. Liver function test within normal limits. Albumin 2.8. RADIOLOGIC DATA: See HPI. PATHOLOGIC DATA: None. IMPRESSION: A 76-year-old former smoker who enters with right popliteal deep vein thrombosis and left pulmonary embolism, and most likely lung malignancy with metastases to the liver and brain, associated with edema. She has commenced Decadron therapy. She is on heparin drip. We await a tissue diagnosis and will need to review her prior radiation records to determine if she is a candidate for additional radiation therapy/whole brain radiation therapy. PLAN: Proceed with biopsy, continue Decadron and we will follow with you. Thank you for asking me to participate in the care of this patient. CODIE DANG M.D. [id number] MTDD
[2016-07-05] MEDS: PIPERACILLIN/TAZOB 3.375 GM 50 ML IVPB SCH (17:45)
--- NOTE | 2016-07-05 18:34 | PN ---
Progress Note (short form) - Note Progress Note: Patient seen and examined Spoke with son and updated Awaiting tissue and IVC filter. Ultimate plan is for patient to be treated at [facility]. Last Vital Signs Temp Pulse Resp BP Pulse Ox 98.4 F 70 18 119/65 97 07/05/16 06:00 07/05/16 18:00 07/05/16 18:00 07/05/16 18:00 07/04/16 09:00 HEENT: KAREN, EOM Intact Oropharynx: No thrush, No mucositis Neck: Supple Nodes: Without adenopathy Cor: RSR, No murmurs, No gallop Lungs: Clear to P&A Abd: Soft, Normal bowel sounds, No organomegaly Ext:No significant edema Skin: No rashes, Integument intact CBC, BMP 07/05/16 05:15 07/05/16 05:15 Current Medications Generic Name Dose Route Start Last Admin Trade Name Freq PRN Reason Stop Dose Admin Acetaminophen 650 mg 07/03/16 15:50 Tylenol - PO Q4H PRN FEVER OR PAIN Atorvastatin Calcium 20 mg 07/03/16 22:00 07/04/16 21:24 Lipitor - PO 20 mg HS ANIVAL Administration Carvedilol 6.25 mg 07/03/16 22:00 07/05/16 09:00 Coreg - PO 6.25 mg BID ANIVAL Administration Chlorhexidine Gluconate 1 applic 07/03/16 22:00 07/04/16 21:27 Hibiclens For Decolonization - TP 1 applic HS ANIVAL Administration Cholecalciferol 1,000 unit 07/04/16 10:00 07/05/16 09:00 Vitamin D3 - PO 1,000 unit DAILY ANIVAL Administration Dexamethasone Sodium Phosphate 4 mg 07/03/16 18:15 07/05/16 14:46 Decadron Injection - IVPB 4 mg Q6H-IV ANIVAL Administration Heparin Sodium (Porcine) 1,000 unit 07/03/16 11:16 07/04/16 19:35 Heparin - IVPUSH 1,000 unit PRN PRN Administration Heparin Heparin Sodium (Porcine) 5,000 unit 07/03/16 11:16 07/05/16 01:45 Heparin - IVPUSH 5,000 unit PRN PRN Administration Heparin Heparin Sodium (Porcine) 25, 500 mls @ 20 mls/hr 07/03/16 11:30 07/05/16 11:45 000 unit/ Sodium Chloride IV Not Given TITR ANIVAL Protocol 1,000 UNIT/HR Pantoprazole Sodium 100 mls @ 200 mls/hr 07/03/16 22:00 07/04/16 21:25 Protonix 40mg Ivpb (Pre-Docked) IVPB 200 mls/hr HS ANIVAL Administration Sodium Chloride 1,000 mls @ 60 mls/hr 07/03/16 18:30 07/04/16 20:30 Normal Saline - IV Not Given ASDIR ANIVAL Piperacillin Sod/Tazobactam Sod 50 mls @ 100 mls/hr 07/05/16 18:00 07/05/16 17: 45 Zosyn 3.375gm Ivpb (Pre-Docked) IVPB 100 mls/hr Q8H-IV ANIVAL Administration Protocol Insulin Aspart 1 vial 07/03/16 16:30 07/05/16 17:13 Novolog Vial Sliding Scale - SQ 6 units ACHS ANIVAL Administration Protocol Mupirocin 1 applic 07/03/16 22:00 07/05/16 09:01 Bactroban Ointment (For Decolonization) - NS 07/08/16 21:59 1 applic BID ANIVAL Administration Ondansetron HCl 4 mg 07/03/16 15:50 07/04/16 09:23 Zofran Injection IVPB 4 mg Q6H PRN Administration NAUSEA Valsartan 160 mg 07/04/16 10:00 07/05/16 09:00 Diovan - PO 160 mg DAILY ANIVAL Administration Zolpidem Tartrate 5 mg 07/04/16 15:58 07/04/16 21:25 Ambien - PO 5 mg HS PRN Administration INSOMNIA Impression Suspicious of lung ca with liver and [employer] REPRESENTATIVE mets. No tissue as yet Need for A/C in the face of pulmonary emboli despite [facility] REPRESENTATIVE mets. IVC filter UTI-antibiotics per ID
[2016-07-05] MEDS: CHLORHEXIDINE GLUCONATE 4% CLEANSER FOR DECOLONIZATION TP SCH (20:59)
[2016-07-05] MEDS: ATORVASTATIN CA 20 MG TABLET (FP) PO SCH (21:11)
[2016-07-05] MEDS: ZOLPIDEM TARTRATE 5 MG TABLET PO PRN (21:12)
[2016-07-05] MEDS: PANTOPRAZOLE SODIUM 100 ML IVPB SCH (21:12)
[2016-07-05] MEDS: SODIUM CHLORIDE 1,000 ML IV SCH (22:10)
[2016-07-06] MEDS: PIPERACILLIN/TAZOB 3.375 GM 50 ML IVPB SCH ×3 (01:54→17:38)
[2016-07-06] MEDS: DEXAMETHASONE SOD PHOSPHATE 4 MG/1 ML VIAL IVPB SCH ×4 (02:14→21:32)
[2016-07-06] MEDS: INSULIN SLIDING SCALE (NOVOLOG) 1 VIAL SQ SCH ×4 (06:18→21:33)
[2016-07-06 06:29] LABS: BASOPHIL 0.2 % (0-2.0); EOSINOPHIL 0.1 % (0-4.5); MCH 28.5 pg (25.7-33.7); MEAN PLT VOLUME 8.2 fl (7.5-11.1); PLATELET COUNT 191 K/MM3 (134-434); RDW 14.7 % (11.6-15.6); WHITE BLOOD COUNT 11.7 K/mm3 (4.0-10.0)
[2016-07-06 06:36] LABS: ALBUMIN 2.8 g/dl (3.4-5.0); BILIRUBIN,TOTAL 0.3 mg/dL (0.2-1.0); CALCIUM 8.1 mg/dL (8.5-10.1); CREATININE 1.3 mg/dL (0.55-1.02); TOT PROT 5.7 g/dl (6.4-8.2)
[2016-07-06 06:53] LABS: TROPONIN I 0.67 ng/ml (0.00-0.05)
[2016-07-06] MEDS ORDERED: LORAZEPAM CARPU-JECT 2 MG/ML DISP.SYRIN IM PRN (09:17)
[2016-07-06] MEDS ORDERED: LORazepam 1 MG TABLET PO PRN ×2 (09:24→09:38)
[2016-07-06] MEDS: CARVEDILOL 6.25 MG TABLET (FP) PO SCH ×2 (09:27→21:32)
[2016-07-06] MEDS: CHOLECALCIFEROL (VITAMIN D3) 1,000 UNIT TABLET (FP) PO SCH (09:30)
[2016-07-06] MEDS: VALSARTAN 160 MG TABLET (UD) PO SCH (09:30)
--- NOTE | 2016-07-06 09:54 | PN ---
Progress Note, Physician Chief Complaint: seen and examined in ICU no acute distress TELE: NSR with PVCs and rare couplets - Current Medication List Current Medications: Active Medications Acetaminophen (Tylenol -) 650 mg PO Q4H PRN PRN Reason: FEVER OR PAIN Atorvastatin Calcium (Lipitor -) 20 mg PO HS [facility] Last Admin: 07/05/16 21:11 Dose: 20 mg Carvedilol (Coreg -) 6.25 mg PO BID ANIVAL Last Admin: 07/06/16 09:27 Dose: 6.25 mg Chlorhexidine Gluconate (Hibiclens For Decolonization -) 1 applic TP HS [facility] Last Admin: 07/05/16 20:59 Dose: 1 applic Cholecalciferol (Vitamin D3 -) 1,000 unit PO DAILY ANIVAL Last Admin: 07/06/16 09:30 Dose: 1,000 unit Dexamethasone Sodium Phosphate (Decadron Injection -) 4 mg IVPB Q6H-IV ANIVAL Last Admin: 07/06/16 09:30 Dose: 4 mg Heparin Sodium (Porcine) (Heparin -) 1,000 unit IVPUSH PRN PRN PRN Reason: Heparin Last Admin: 07/04/16 19:35 Dose: 1,000 unit Heparin Sodium (Porcine) (Heparin -) 5,000 unit IVPUSH PRN PRN PRN Reason: Heparin Last Admin: 07/05/16 01:45 Dose: 5,000 unit Heparin Sodium (Porcine) 25, (000 unit/ Sodium Chloride) 500 mls @ 20 mls/hr IV TITR ANIVAL; 1,000 UNIT/HR PRN Reason: Protocol Last Admin: 07/05/16 11:45 Dose: Not Given Pantoprazole Sodium (Protonix 40mg Ivpb (Pre-Docked)) 100 mls @ 200 mls/hr IVPB HS [facility] Last Admin: 07/05/16 21:12 Dose: 200 mls/hr Sodium Chloride (Normal Saline -) 1,000 mls @ 60 mls/hr IV ASDIR ANIVAL Last Admin: 07/05/16 22:10 Dose: 60 mls/hr Piperacillin Sod/Tazobactam Sod (Zosyn 3.375gm Ivpb (Pre-Docked)) 50 mls @ 100 mls/hr IVPB Q8H-IV ANIVAL PRN Reason: Protocol Last Admin: 07/06/16 09:31 Dose: 100 mls/hr Insulin Aspart (Novolog Vial Sliding Scale -) 1 vial SQ ACHS ANIVAL PRN Reason: Protocol Last Admin: 07/06/16 06:18 Dose: 4 units Lorazepam (Ativan -) 1 mg PO Q4HPO PRN PRN Reason: ANXIETY Mupirocin (Bactroban Ointment (For Decolonization) -) 1 applic NS BID [facility] Stop: 07/08/16 21:59 Last Admin: 07/05/16 21:11 Dose: 1 applic Ondansetron HCl (Zofran Injection) 4 mg IVPB Q6H PRN PRN Reason: NAUSEA Last Admin: 07/04/16 09:23 Dose: 4 mg Valsartan (Diovan -) 160 mg PO DAILY [facility] Last Admin: 07/06/16 09:30 Dose: 160 mg Zolpidem Tartrate (Ambien -) 5 mg PO HS PRN PRN Reason: INSOMNIA Last Admin: 07/05/16 21:12 Dose: 5 mg - Objective Vital Signs: Vital Signs Temperature 97.6 F 07/06/16 06:00 Pulse Rate 62 07/06/16 08:00 Respiratory Rate 20 07/06/16 08:00 Blood Pressure 135/61 07/06/16 08:00 O2 Sat by Pulse Oximetry (%) 98 07/05/16 20:30 Constitutional: Yes: No Distress Eyes: Yes: Conjunctiva Clear Cardiovascular: Yes: Regular Rate and Rhythm Respiratory: Yes: CTA Bilaterally Gastrointestinal: Yes: Soft Edema: No Neurological: Yes: Confusion (at baseline) Labs: CBC, BMP 07/06/16 05:20 07/06/16 05:20 INR, PTT INR 1.32 (0.82-1.09) H 07/03/16 10:30 Microbiology 07/04/16 00:00 Urine - Urine Mack Urine Culture - Final Escherichia Coli Laboratory Tests 07/06/16 07/06/16 07/06/16 05:20 05:20 05:20 WBC 11.7 H Hgb 9.3 L Hct 29.1 L Plt Count 191 PTT (Actin FS) 61.6 H Potassium 4.2 Creatinine 1.3 H Troponin I 0.67 H* - ....Imaging EKG: Image Reviewed Assessment/Plan Suspected metastatic lung CA to liver and brain Acute pulmonary embolism REC: Remains stable on IV heparin. TnI mildly elevated due to PE. Plan for IR guided biopsy and possible IVC filter as per critical care and oncology.
[2016-07-06] MEDS ORDERED: ALPRAZolam 0.25 MG TABLET PO PRN (10:53)
--- NOTE | 2016-07-06 10:53 | PN ---
Progress Note (short form) - Note Progress Note: PULMONARY/CCM Pt seen and examined in the ICU. Denies chest pain or palpitations. Mild shortness of breath. Last Vital Signs Temp Pulse Resp BP Pulse Ox 97.6 F 62 20 107/64 98 07/06/16 06:00 07/06/16 10:00 07/06/16 10:00 07/06/16 10:00 07/05/16 20:30 Intake & Output 07/03/16 07/04/16 07/05/16 07/06/16 23:59 23:59 23:59 23:59 Intake Total 2327 2040 860 Output Total 1700 1200 200 Balance 627 840 660 Weight 198 lb 3.2 oz 198 lb 198 lb 202 lb 4.8 oz Gen: NAD at rest Heart: RRR Lung: decreased breath sounds at the bases Abd: soft, nontender Ext: no edema CBC, BMP 07/06/16 05:20 07/06/16 05:20 Active Medications Acetaminophen (Tylenol -) 650 mg PO Q4H PRN PRN Reason: FEVER OR PAIN Atorvastatin Calcium (Lipitor -) 20 mg PO HS ANIVAL Last Admin: 07/05/16 21:11 Dose: 20 mg Carvedilol (Coreg -) 6.25 mg PO BID ANIVAL Last Admin: 07/06/16 09:27 Dose: 6.25 mg Chlorhexidine Gluconate (Hibiclens For Decolonization -) 1 applic TP HS [facility] Last Admin: 07/05/16 20:59 Dose: 1 applic Cholecalciferol (Vitamin D3 -) 1,000 unit PO DAILY ANIVAL Last Admin: 07/06/16 09:30 Dose: 1,000 unit Dexamethasone Sodium Phosphate (Decadron Injection -) 4 mg IVPB Q6H-IV ANIVAL Last Admin: 07/06/16 09:30 Dose: 4 mg Heparin Sodium (Porcine) (Heparin -) 1,000 unit IVPUSH PRN PRN PRN Reason: Heparin Last Admin: 07/04/16 19:35 Dose: 1,000 unit Heparin Sodium (Porcine) (Heparin -) 5,000 unit IVPUSH PRN PRN PRN Reason: Heparin Last Admin: 07/05/16 01:45 Dose: 5,000 unit Heparin Sodium (Porcine) 25, (000 unit/ Sodium Chloride) 500 mls @ 20 mls/hr IV TITR ANIVAL; 1,000 UNIT/HR PRN Reason: Protocol Last Admin: 07/05/16 11:45 Dose: Not Given Pantoprazole Sodium (Protonix 40mg Ivpb (Pre-Docked)) 100 mls @ 200 mls/hr IVPB HS ANIVAL Last Admin: 07/05/16 21:12 Dose: 200 mls/hr Sodium Chloride (Normal Saline -) 1,000 mls @ 60 mls/hr IV ASDIR ANIVAL Last Admin: 07/05/16 22:10 Dose: 60 mls/hr Piperacillin Sod/Tazobactam Sod (Zosyn 3.375gm Ivpb (Pre-Docked)) 50 mls @ 100 mls/hr IVPB Q8H-IV ANIVAL PRN Reason: Protocol Last Admin: 07/06/16 09:31 Dose: 100 mls/hr Insulin Aspart (Novolog Vial Sliding Scale -) 1 vial SQ ACHS ANIVAL PRN Reason: Protocol Last Admin: 07/06/16 06:18 Dose: 4 units Lorazepam (Ativan -) 1 mg PO Q4HPO PRN PRN Reason: ANXIETY Last Admin: 07/06/16 10:06 Dose: 1 mg Mupirocin (Bactroban Ointment (For Decolonization) -) 1 applic NS BID [facility] Stop: 07/08/16 21:59 Last Admin: 07/05/16 21:11 Dose: 1 applic Ondansetron HCl (Zofran Injection) 4 mg IVPB Q6H PRN PRN Reason: NAUSEA Last Admin: 07/04/16 09:23 Dose: 4 mg Valsartan (Diovan -) 160 mg PO DAILY [facility] Last Admin: 07/06/16 09:30 Dose: 160 mg Zolpidem Tartrate (Ambien -) 5 mg PO HS PRN PRN Reason: INSOMNIA Last Admin: 07/05/16 21:12 Dose: 5 mg A/P Acute Pulmonary Emboli DVT Pulmonary HTN +Troponins 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 CAD s/p CABG HTN DM UTI - anticoagulate with heparin - for CT guided liver biopsy and IVC filter placement - can likely de-escalate antibiotics as pt with sensitive E coli - O2 to keep SpO2 >90% - OOB to chair - can monitor on telemetry Problem List - Problems (1) Pulmonary embolism Code(s): I26.99 - OTHER PULMONARY EMBOLISM WITHOUT ACUTE COR PULMONALE Qualifiers: Pulmonary embolism type: other Chronicity: acute Acute cor pulmonale presence: without acute cor pulmonale Qualified Code(s): I26.99 - Other pulmonary embolism without acute cor pulmonale (2) DVT (deep venous thrombosis) Code(s): I82.409 - ACUTE EMBOLISM AND THOMBOS UNSP DEEP VN UNSP LOWER EXTREMITY Qualifiers: DVT location: lower extremity Affected thrombotic vein of extremity: popliteal Laterality: right Chronicity: acute Qualified Code(s): I82.431 - Acute embolism and thrombosis of right popliteal vein (3) Chest pain Code(s): R07.9 - CHEST PAIN, UNSPECIFIED Qualifiers: Chest pain type: unspecified Qualified Code(s): R07.9 - Chest pain, unspecified (4) Elevated troponin Code(s): R79.89 - OTHER SPECIFIED ABNORMAL FINDINGS OF BLOOD CHEMISTRY (5) Pulmonary hypertension Code(s): I27.2 - OTHER SECONDARY PULMONARY HYPERTENSION (6) Lung mass Code(s): R91.8 - OTHER NONSPECIFIC ABNORMAL FINDING OF LUNG FIELD (7) Brain metastases Code(s): C79.31 - SECONDARY MALIGNANT NEOPLASM OF BRAIN
--- NOTE | 2016-07-06 11:30 | PN ---
Physical Exam: SUBJECTIVE: Patient seen and examined. She was expressing frustration about being hospitalized, appeared very anxious. Started her on Ativan 1mg as needed q 4 for anxiety OBJECTIVE: Vital Signs Period Temp Pulse Resp BP Sys/[place] Pulse Ox Last 24 Hr 97.6 F-98.6 F 56-80 18-20 107-138/48-82 98 GENERAL: The patient is awake, alert, and fully oriented, anxious HEAD: Normal with no signs of trauma. EYES: PERRL, extraocular movements intact, sclera anicteric, conjunctiva clear. No ptosis. ENT: Ears normal, nares patent, oropharynx clear without exudates, moist mucous membranes. NECK: Trachea midline, full range of motion, supple. LUNGS: Breath sounds equal, clear to auscultation bilaterally, no wheezes, no crackles, no accessory muscle use. HEART: Regular rate and rhythm. ABDOMEN: Soft, nontender, nondistended, normoactive bowel sounds, no guarding, no rebound, no hepatosplenomegaly, no masses. EXTREMITIES: 2+ pulses, warm, well-perfused, no edema. NEUROLOGICAL: Normal speech, gait not observed. PSYCH: Normal mood, normal affect. SKIN: Warm, dry, normal turgor, no rashes or lesions noted Laboratory Results - last 24 hr 07/05/16 07/05/16 07/05/16 12:30 16:54 22:04 WBC RBC Hgb Hct MCV MCHC RDW Plt Count MPV Neutrophils % Lymphocytes % Monocytes % Eosinophils % Basophils % PTT (Actin FS) 54.2 H D Sodium Potassium Chloride Carbon Dioxide Anion Gap BUN Creatinine Creat Clearance w eGFR POC Glucometer [phone] Random Glucose Calcium Total Bilirubin AST ALT Alkaline Phosphatase Troponin I Total Protein Albumin 07/06/16 07/06/16 07/06/16 05:20 05:20 05:20 WBC 11.7 H RBC 3.27 L Hgb 9.3 L Hct 29.1 L MCV 89.0 MCHC 32.0 RDW 14.7 Plt Count 191 MPV 8.2 Neutrophils % 86.0 H Lymphocytes % 10.6 D Monocytes % 3.1 L D Eosinophils % 0.1 Basophils % 0.2 PTT (Actin FS) 61.6 H Sodium 145 Potassium 4.2 Chloride 115 H Carbon Dioxide 21 Anion Gap 9 BUN 29 H D Creatinine 1.3 H Creat Clearance w eGFR 39.93 POC Glucometer Random Glucose 194 H Calcium 8.1 L Total Bilirubin 0.3 AST 18 ALT 24 D Alkaline Phosphatase 81 Troponin I 0.67 H* Total Protein 5.7 L Albumin 2.8 L 07/06/16 05:45 WBC RBC Hgb Hct MCV MCHC RDW Plt Count MPV Neutrophils % Lymphocytes % Monocytes % Eosinophils % Basophils % PTT (Actin FS) Sodium Potassium Chloride Carbon Dioxide Anion Gap BUN Creatinine Creat Clearance w eGFR POC Glucometer [phone] Random Glucose Calcium Total Bilirubin AST ALT Alkaline Phosphatase Troponin I Total Protein Albumin Active Medications Generic Name Dose Route Start Last Admin Trade Name Freq PRN Reason Stop Dose Admin Acetaminophen 650 mg 07/03/16 15:50 Tylenol - PO Q4H PRN FEVER OR PAIN Alprazolam 0.25 mg 07/06/16 10:53 Xanax - PO Q8H PRN ANXIETY Atorvastatin Calcium 20 mg 07/03/16 22:00 07/05/16 21:11 Lipitor - PO 20 mg HS ANIVAL Administration Carvedilol 6.25 mg 07/03/16 22:00 07/06/16 09:27 Coreg - PO 6.25 mg BID ANIVAL Administration Chlorhexidine Gluconate 1 applic 07/03/16 22:00 07/05/16 20:59 Hibiclens For Decolonization - TP 1 applic HS ANIVAL Administration Cholecalciferol 1,000 unit 07/04/16 10:00 07/06/16 09:30 Vitamin D3 - PO 1,000 unit DAILY ANIVAL Administration Dexamethasone Sodium Phosphate 4 mg 07/03/16 18:15 07/06/16 09:30 Decadron Injection - IVPB 4 mg Q6H-IV ANIVAL Administration Heparin Sodium (Porcine) 1,000 unit 07/03/16 11:16 07/04/16 19:35 Heparin - IVPUSH 1,000 unit PRN PRN Administration Heparin Heparin Sodium (Porcine) 5,000 unit 07/03/16 11:16 07/05/16 01:45 Heparin - IVPUSH 5,000 unit PRN PRN Administration Heparin Heparin Sodium (Porcine) 25, 500 mls @ 20 mls/hr 07/03/16 11:30 07/05/16 11:45 000 unit/ Sodium Chloride IV Not Given TITR ANIVAL Protocol 1,000 UNIT/HR Pantoprazole Sodium 100 mls @ 200 mls/hr 07/03/16 22:00 07/05/16 21:12 Protonix 40mg Ivpb (Pre-Docked) IVPB 200 mls/hr HS ANIVAL Administration Sodium Chloride 1,000 mls @ 60 mls/hr 07/03/16 18:30 07/05/16 22:10 Normal Saline - IV 60 mls/hr ASDIR ANIVAL Administration Piperacillin Sod/Tazobactam Sod 50 mls @ 100 mls/hr 07/05/16 18:00 07/06/16 09: 31 Zosyn 3.375gm Ivpb (Pre-Docked) IVPB 100 mls/hr Q8H-IV ANIVAL Administration Protocol Insulin Aspart 1 vial 07/03/16 16:30 07/06/16 06:18 Novolog Vial Sliding Scale - SQ 4 units ACHS ANIVAL Administration Protocol Mupirocin 1 applic 07/03/16 22:00 07/05/16 21:11 Bactroban Ointment (For Decolonization) - NS 07/08/16 21:59 1 applic BID ANIVAL Administration Ondansetron HCl 4 mg 07/03/16 15:50 07/04/16 09:23 Zofran Injection IVPB 4 mg Q6H PRN Administration NAUSEA Valsartan 160 mg 07/04/16 10:00 07/06/16 09:30 Diovan - PO 160 mg DAILY ANIVAL Administration Zolpidem Tartrate 5 mg 07/04/16 15:58 07/05/16 21:12 Ambien - PO 5 mg HS PRN Administration INSOMNIA ASSESSMENT/PLAN: Patient is a 76 year old female with a significant past medical history of 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 She presents to the ED on 07/03/2016 with chest pain radiating to her left arm with shortness of breath. She was found to have a right lower extremity DVT and LLL Pulmonary Embolism on admission. Imaging: Chest CT/Chest CTA 07/03/2016 - Positive PE LL arteral branches. 2 left lung masses with additional nod. and liver lesions consistent with malignancy. CT/Head CT 07/03/2016 - Moderate atrophy and chronic microvascular ischemic changes focal cortical and subcortical enhancements in the right parital lobe, lesions measuring 11 x 6cm findings suspicions for brain mets. Hematology: DVT/Pulmonary Embolism Assessment/Plan: Chest CT/Chest CTA 07/03/2016 - Positive PE LL arteral branches. 2 left lung masses with additional nod. and liver lesions consistent with malignancy. On a heparin drip started on 07/03/2016 Hematology following tolerating room air, oxygen sats stable Monitor closely Oncology: Metastatic cancer (liver, lung, brain metastases) unknown primary Assessment/Plan: Pending IR tissue biopsy and MRI of brain pending renal function improvement On Decadron 4mg q6 hours Needs ongoing neuro assessment, was reported to be confused intermittently on admission Hematology/Oncology following Tolerating room air Cardiology: Elevated troponins - acute Assessment/Plan: Troponins 0.91, 3.61, 2.08, 0.89 Likely due to PE, not likely [place] Cardiology following Coronary Artery Disease s/p CABG Assessment/Plan: on Diovan, Coreq, ASA on hold for liver biopsy Hypertension - chronic Assessment/Plan: Controlled on Diovan, Coreq Hyperlipidemia - chronic Assessment/Plan: On Lipitor ID: UTI - acute Assessment/Plan: Urine cultures with E-coli Leukocytosis increased from 7.8 to 12.6, remains afebrile, vitals stable ID consulted and started patient on Zosyn Endocrine: Assessment/Plan: Diabetes Mellitus Novolog sliding scale - increased sliding scale standing dose Monitor BGMs F.E.N. Fluids: Normal saline @ 60cc/hr Electrolytes: BMP daily Nutrition: Diabetic diet Prophylaxis: DVT: Heparin drip GI: Protonix Visit type - Emergency Visit Emergency Visit: Yes ED Registration Date: 07/03/16 Care time: The patient presented to the Emergency Department on the above date and was hospitalized for further evaluation of their emergent condition. - New Patient This patient is new to me today: No - Critical Care Critical Care patient: Yes Total Critical Care Time (in minutes): 45 Critical Care Statement: The care of this patient involved high complexity decision making to prevent further life threatening deterioration of the patient 's condition and/or to evalute & treat vital organ system(s) failure or risk of failure. - Discharge Referral Referred to [facility] No
[2016-07-06] MEDS: MUPIROCIN 2% TOPICAL OINTMENT FOR DECOLONIZATION NS SCH (12:06)
[2016-07-06] MEDS: HEPARIN - 25,000 UNIT in SODIUM CHLORIDE 495 ML IV SCH ×2 (12:33→17:23)
[2016-07-06] MEDS ORDERED: ONDANSETRON 4 MG/2 ML VIAL IVPB PRN (15:20)
[2016-07-06] MEDS ORDERED: ACETAMINOPHEN 325 MG TABLET (FP) PO PRN (15:20)
[2016-07-06] MEDS ORDERED: HEPARIN NA (PORCINE) 5,000 UNITS/ML 1ML VIAL IVPUSH PRN ×4 (15:20)
[2016-07-06 16:08] LABS: MCH 28.6 pg (25.7-33.7); MCHC 32.1 g/dl (32.0-36.0); MEAN CELL VOLUME 89.3 fl (80-96); MEAN PLT VOLUME 8.4 fl (7.5-11.1); PLATELET COUNT 192 K/MM3 (134-434); RDW 15.3 % (11.6-15.6)
--- NOTE | 2016-07-06 16:18 | PN ---
Progress Note, Physician History of Present Illness: patient is stable no new issues - Current Medication List Current Medications: Active Medications Acetaminophen (Tylenol -) 650 mg PO Q4H PRN PRN Reason: FEVER OR PAIN Alprazolam (Xanax -) 0.25 mg PO Q8H PRN PRN Reason: ANXIETY Atorvastatin Calcium (Lipitor -) 20 mg PO HS [facility] Carvedilol (Coreg -) 6.25 mg PO BID ANIVAL Chlorhexidine Gluconate (Hibiclens For Decolonization -) 1 applic TP HS ANIVAL Cholecalciferol (Vitamin D3 -) 1,000 unit PO DAILY [facility] Dexamethasone Sodium Phosphate (Decadron Injection -) 4 mg IVPB Q6H-IV ANIVAL Heparin Sodium (Porcine) (Heparin -) 1,000 unit IVPUSH PRN PRN PRN Reason: Heparin Heparin Sodium (Porcine) (Heparin -) 5,000 unit IVPUSH PRN PRN PRN Reason: Heparin Heparin Sodium (Porcine) (Heparin -) 1,000 unit IVPUSH PRN PRN PRN Reason: Heparin Heparin Sodium (Porcine) (Heparin -) 5,000 unit IVPUSH PRN PRN PRN Reason: Heparin Piperacillin Sod/Tazobactam Sod (Zosyn 3.375gm Ivpb (Pre-Docked)) 50 mls @ 100 mls/hr IVPB Q8H-IV ANIVAL PRN Reason: Protocol Last Admin: 07/06/16 09:31 Dose: 100 mls/hr Heparin Sodium (Porcine) 25, (000 unit/ Sodium Chloride) 500 mls @ 20 mls/hr IV TITR ANIVAL; 1,000 UNIT/HR PRN Reason: Protocol Pantoprazole Sodium (Protonix 40mg Ivpb (Pre-Docked)) 100 mls @ 200 mls/hr IVPB HS [facility] Sodium Chloride (Normal Saline -) 1,000 mls @ 60 mls/hr IV ASDIR ANIVAL Insulin Aspart (Novolog Vial Sliding Scale -) 1 vial SQ ACHS ANIVAL PRN Reason: Protocol Mupirocin (Bactroban Ointment (For Decolonization) -) 1 applic NS BID [facility] Stop: 07/08/16 21:59 Ondansetron HCl (Zofran Injection) 4 mg IVPB Q6H PRN PRN Reason: NAUSEA Valsartan (Diovan -) 160 mg PO DAILY [facility] Zolpidem Tartrate (Ambien -) 5 mg PO HS PRN PRN Reason: INSOMNIA Last Admin: 07/05/16 21:12 Dose: 5 mg - Objective Vital Signs: Vital Signs Temperature 98.6 F 07/06/16 14:52 Pulse Rate 69 07/06/16 14:52 Respiratory Rate 20 07/06/16 14:52 Blood Pressure 115/53 07/06/16 14:52 O2 Sat by Pulse Oximetry (%) 98 07/06/16 14:52 Constitutional: Yes: No Distress, Calm Cardiovascular: Yes: Regular Rate and Rhythm Respiratory: Yes: Regular, CTA Bilaterally Gastrointestinal: Yes: Normal Bowel Sounds, Soft Musculoskeletal: Yes: WNL Extremities: Yes: WNL Wound/Incision: Yes: Well Approximated Neurological: Yes: Alert, Oriented Psychiatric: Yes: Alert, Oriented Labs: CBC, BMP 07/06/16 05:20 INR, PTT INR 1.32 (0.82-1.09) H 07/03/16 10:30 Assessment/Plan this patient with a very high chance of having metastatic lung ca including brain mets and liver mets,who has developed pul embolism and dvt probably as consequence of the primary process patient will need a tissue diagnosis and the patient is waiting for the same as the plan is to stabilize the patient and then do biopsy Problem List - Problems (1) Pulmonary embolism Code(s): I26.99 - OTHER PULMONARY EMBOLISM WITHOUT ACUTE COR PULMONALE Qualifiers: Pulmonary embolism type: other Chronicity: acute Acute cor pulmonale presence: without acute cor pulmonale Qualified Code(s): I26.99 - Other pulmonary embolism without acute cor pulmonale (2) DVT (deep venous thrombosis) Code(s): I82.409 - ACUTE EMBOLISM AND THOMBOS UNSP DEEP VN UNSP LOWER EXTREMITY Qualifiers: DVT location: lower extremity Affected thrombotic vein of extremity: popliteal Laterality: right Chronicity: acute Qualified Code(s): I82.431 - Acute embolism and thrombosis of right popliteal vein (3) Chest pain Code(s): R07.9 - CHEST PAIN, UNSPECIFIED Qualifiers: Chest pain type: unspecified Qualified Code(s): R07.9 - Chest pain, unspecified (4) Elevated troponin Code(s): R79.89 - OTHER SPECIFIED ABNORMAL FINDINGS OF BLOOD CHEMISTRY (5) Pulmonary hypertension Code(s): I27.2 - OTHER SECONDARY PULMONARY HYPERTENSION (6) Lung mass Code(s): R91.8 - OTHER NONSPECIFIC ABNORMAL FINDING OF LUNG FIELD (7) Brain metastases Code(s): C79.31 - SECONDARY MALIGNANT NEOPLASM OF BRAIN plan continue current mgmt patient awaiting for biopsy patient to get ivc filter continue abx
[2016-07-06] MEDS: SODIUM CHLORIDE 1,000 ML IV SCH (17:24)
[2016-07-06] MEDS: ATORVASTATIN CA 20 MG TABLET (FP) PO SCH (21:32)
[2016-07-06] MEDS: ZOLPIDEM TARTRATE 5 MG TABLET PO PRN (21:32)
[2016-07-06] MEDS: PANTOPRAZOLE SODIUM 100 ML IVPB SCH (21:33)
[2016-07-06] MEDS ORDERED: CHLORHEXIDINE GLUCONATE 4% CLEANSER FOR DECOLONIZATION TP SCH (22:00)
[2016-07-06] MEDS ORDERED: MUPIROCIN 2% TOPICAL OINTMENT FOR DECOLONIZATION NS SCH (22:00)
[2016-07-07] MEDS: PIPERACILLIN/TAZOB 3.375 GM 50 ML IVPB SCH ×3 (03:05→17:06)
[2016-07-07] MEDS: DEXAMETHASONE SOD PHOSPHATE 4 MG/1 ML VIAL IVPB SCH ×4 (03:06→21:52)
[2016-07-07] MEDS: INSULIN SLIDING SCALE (NOVOLOG) 1 VIAL SQ SCH ×4 (06:01→22:11)
[2016-07-07 07:36] LABS: MCH 29.4 pg (25.7-33.7); MCHC 32.8 g/dl (32.0-36.0); MEAN CELL VOLUME 89.7 fl (80-96); PLATELET COUNT 210 K/MM3 (134-434); RDW 14.7 % (11.6-15.6); WHITE BLOOD COUNT 11.6 K/mm3 (4.0-10.0)
[2016-07-07 08:03] LABS: ALBUMIN 2.9 g/dl (3.4-5.0); CREATININE 1.4 mg/dL (0.55-1.02); MAGNESIUM 1.9 mg/dL (1.8-2.4); PHOSPHOROUS 3.5 mg/dL (2.5-4.9)
[2016-07-07 08:04] LABS: BILIRUBIN,TOTAL 0.4 mg/dL (0.2-1.0); TOT PROT 6.1 g/dl (6.4-8.2)
--- NOTE | 2016-07-07 09:46 | PN ---
Progress Note, Physician Chief Complaint: sitting comfortably in chair this AM Denies CP or SOB TELE: reviewed. NSR with rare PVCs History of Present Illness: ID and Critical Care notes reviewed - Current Medication List Current Medications: Active Medications Acetaminophen (Tylenol -) 650 mg PO Q4H PRN PRN Reason: FEVER OR PAIN Alprazolam (Xanax -) 0.25 mg PO Q8H PRN PRN Reason: ANXIETY Last Admin: 07/06/16 20:52 Dose: 0.25 mg Atorvastatin Calcium (Lipitor -) 20 mg PO HS ANIVAL Last Admin: 07/06/16 21:32 Dose: 20 mg Carvedilol (Coreg -) 6.25 mg PO BID ANIVAL Last Admin: 07/06/16 21:32 Dose: 6.25 mg Cholecalciferol (Vitamin D3 -) 1,000 unit PO DAILY ANIVAL Dexamethasone Sodium Phosphate (Decadron Injection -) 4 mg IVPB Q6H-IV ANIVAL Last Admin: 07/07/16 03:06 Dose: 4 mg Heparin Sodium (Porcine) (Heparin -) 1,000 unit IVPUSH PRN PRN PRN Reason: Heparin Heparin Sodium (Porcine) (Heparin -) 5,000 unit IVPUSH PRN PRN PRN Reason: Heparin Heparin Sodium (Porcine) (Heparin -) 1,000 unit IVPUSH PRN PRN PRN Reason: Heparin Heparin Sodium (Porcine) (Heparin -) 5,000 unit IVPUSH PRN PRN PRN Reason: Heparin Piperacillin Sod/Tazobactam Sod (Zosyn 3.375gm Ivpb (Pre-Docked)) 50 mls @ 100 mls/hr IVPB Q8H-IV ANIVAL PRN Reason: Protocol Last Admin: 07/07/16 03:05 Dose: 100 mls/hr Heparin Sodium (Porcine) 25, (000 unit/ Sodium Chloride) 500 mls @ 20 mls/hr IV TITR ANIVAL; 1,000 UNIT/HR PRN Reason: Protocol Last Admin: 07/06/16 17:23 Dose: 20 mls/hr Pantoprazole Sodium (Protonix 40mg Ivpb (Pre-Docked)) 100 mls @ 200 mls/hr IVPB HS ANIVAL Last Admin: 07/06/16 21:33 Dose: 200 mls/hr Sodium Chloride (Normal Saline -) 1,000 mls @ 60 mls/hr IV ASDIR [facility] Last Admin: 07/06/16 17:24 Dose: 60 mls/hr Insulin Aspart (Novolog Vial Sliding Scale -) 1 vial SQ ACHS ANIVAL PRN Reason: Protocol Last Admin: 07/07/16 06:01 Dose: 4 units Ondansetron HCl (Zofran Injection) 4 mg IVPB Q6H PRN PRN Reason: NAUSEA Valsartan (Diovan -) 160 mg PO DAILY [facility] Zolpidem Tartrate (Ambien -) 5 mg PO HS PRN PRN Reason: INSOMNIA Last Admin: 07/06/16 21:32 Dose: 5 mg - Objective Vital Signs: Vital Signs Temperature 96.8 F L 07/07/16 06:00 Pulse Rate 98 H 07/07/16 06:00 Respiratory Rate 18 07/07/16 06:00 Blood Pressure 122/72 07/07/16 06:00 O2 Sat by Pulse Oximetry (%) 98 07/06/16 21:00 Constitutional: Yes: No Distress Eyes: Yes: Conjunctiva Clear Cardiovascular: Yes: Regular Rate and Rhythm Respiratory: Yes: CTA Bilaterally Gastrointestinal: Yes: Soft Edema: Yes Edema: LLE: 1+, RLE: 1+ Neurological: Yes: Alert ...Motor Strength: WNL Labs: CBC, BMP 07/07/16 05:35 07/07/16 05:35 INR, PTT INR 1.32 (0.82-1.09) H 07/03/16 10:30 Laboratory Tests 07/05/16 07/06/16 07/06/16 12:30 05:20 15:45 WBC Hgb Plt Count PTT (Actin FS) 54.2 H D 61.6 H 52.0 H Sodium Potassium BUN Creatinine 07/07/16 07/07/16 07/07/16 05:35 05:35 05:35 WBC 11.6 H Hgb 9.9 L Plt Count 210 PTT (Actin FS) 55.1 H Sodium 145 Potassium 4.1 BUN 32 H Creatinine 1.4 H - ....Imaging EKG: Image Reviewed Assessment/Plan Assessment/Plan Suspected metastatic lung CA to liver and brain Acute pulmonary embolism REC: Remains stable on IV heparin. TnI mildly elevated due to acute pulmonary embolism. Plan for IR guided biopsy and IVC filter as per critical care and oncology team. Continue telemetry on [place] and daily CBC while on heparin gtts.
[2016-07-07] MEDS: CARVEDILOL 6.25 MG TABLET (FP) PO SCH ×2 (09:50→21:55)
[2016-07-07] MEDS: CHOLECALCIFEROL (VITAMIN D3) 1,000 UNIT TABLET (FP) PO SCH (09:50)
[2016-07-07] MEDS: VALSARTAN 160 MG TABLET (UD) PO SCH (09:51)
--- NOTE | 2016-07-07 10:20 | PN ---
Progress Note, Physician History of Present Illness: pulmonary alert,nad,-sob,-cp - Current Medication List Current Medications: Active Medications Acetaminophen (Tylenol -) 650 mg PO Q4H PRN PRN Reason: FEVER OR PAIN Alprazolam (Xanax -) 0.25 mg PO Q8H PRN PRN Reason: ANXIETY Last Admin: 07/06/16 20:52 Dose: 0.25 mg Atorvastatin Calcium (Lipitor -) 20 mg PO HS ANIVAL Last Admin: 07/06/16 21:32 Dose: 20 mg Carvedilol (Coreg -) 6.25 mg PO BID ANIVAL Last Admin: 07/07/16 09:50 Dose: 6.25 mg Cholecalciferol (Vitamin D3 -) 1,000 unit PO DAILY ANIVAL Last Admin: 07/07/16 09:50 Dose: 1,000 unit Dexamethasone Sodium Phosphate (Decadron Injection -) 4 mg IVPB Q6H-IV ANIVAL Last Admin: 07/07/16 09:50 Dose: 4 mg Heparin Sodium (Porcine) (Heparin -) 1,000 unit IVPUSH PRN PRN PRN Reason: Heparin Heparin Sodium (Porcine) (Heparin -) 5,000 unit IVPUSH PRN PRN PRN Reason: Heparin Heparin Sodium (Porcine) (Heparin -) 1,000 unit IVPUSH PRN PRN PRN Reason: Heparin Heparin Sodium (Porcine) (Heparin -) 5,000 unit IVPUSH PRN PRN PRN Reason: Heparin Piperacillin Sod/Tazobactam Sod (Zosyn 3.375gm Ivpb (Pre-Docked)) 50 mls @ 100 mls/hr IVPB Q8H-IV ANIVAL PRN Reason: Protocol Last Admin: 07/07/16 09:50 Dose: 100 mls/hr Heparin Sodium (Porcine) 25, (000 unit/ Sodium Chloride) 500 mls @ 20 mls/hr IV TITR ANIVAL; 1,000 UNIT/HR PRN Reason: Protocol Last Admin: 07/06/16 17:23 Dose: 20 mls/hr Pantoprazole Sodium (Protonix 40mg Ivpb (Pre-Docked)) 100 mls @ 200 mls/hr IVPB HS ANIVAL Last Admin: 07/06/16 21:33 Dose: 200 mls/hr Sodium Chloride (Normal Saline -) 1,000 mls @ 60 mls/hr IV ASDIR ANIVAL Last Admin: 07/06/16 17:24 Dose: 60 mls/hr Insulin Aspart (Novolog Vial Sliding Scale -) 1 vial SQ ACHS ANIVAL PRN Reason: Protocol Last Admin: 07/07/16 06:01 Dose: 4 units Ondansetron HCl (Zofran Injection) 4 mg IVPB Q6H PRN PRN Reason: NAUSEA Valsartan (Diovan -) 160 mg PO DAILY ANIVAL Last Admin: 07/07/16 09:51 Dose: 160 mg Zolpidem Tartrate (Ambien -) 5 mg PO HS PRN PRN Reason: INSOMNIA Last Admin: 07/06/16 21:32 Dose: 5 mg - Objective Vital Signs: Vital Signs Temperature 96.8 F L 07/07/16 06:00 Pulse Rate 98 H 07/07/16 06:00 Respiratory Rate 18 07/07/16 06:00 Blood Pressure 122/72 07/07/16 06:00 O2 Sat by Pulse Oximetry (%) 98 07/06/16 21:00 Constitutional: Yes: Well Nourished, Calm Eyes: Yes: WNL HENT: Yes: WNL Neck: Yes: WNL Cardiovascular: Yes: Regular Rate and Rhythm, S1, S2 Respiratory: Yes: CTA Bilaterally Gastrointestinal: Yes: WNL Extremities: Yes: WNL Edema: No Labs: CBC, BMP 07/07/16 05:35 07/07/16 05:35 INR, PTT INR 1.32 (0.82-1.09) H 07/03/16 10:30 Assessment/Plan A/P Acute Pulmonary Emboli DVT Pulmonary HTN +Troponins 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 CAD s/p CABG HTN DM UTI - anticoagulate with heparin - CT guided liver biopsy and IVC filter placement - O2 to keep SpO2 >90% - OOB to chair Problem List - Problems (1) Pulmonary embolism Code(s): I26.99 - OTHER PULMONARY EMBOLISM WITHOUT ACUTE COR PULMONALE Qualifiers: Pulmonary embolism type: other Chronicity: acute Acute cor pulmonale presence: without acute cor pulmonale Qualified Code(s): I26.99 - Other pulmonary embolism without acute cor pulmonale (2) DVT (deep venous thrombosis) Code(s): I82.409 - ACUTE EMBOLISM AND THOMBOS UNSP DEEP VN UNSP LOWER EXTREMITY Qualifiers: DVT location: lower extremity Affected thrombotic vein of extremity: popliteal Laterality: right Chronicity: acute Qualified Code(s): I82.431 - Acute embolism and thrombosis of right popliteal vein (3) Chest pain Code(s): R07.9 - CHEST PAIN, UNSPECIFIED Qualifiers: Chest pain type: unspecified Qualified Code(s): R07.9 - Chest pain, unspecified (4) Elevated troponin Code(s): R79.89 - OTHER SPECIFIED ABNORMAL FINDINGS OF BLOOD CHEMISTRY (5) Pulmonary hypertension Code(s): I27.2 - OTHER SECONDARY PULMONARY HYPERTENSION (6) Lung mass Code(s): R91.8 - OTHER NONSPECIFIC ABNORMAL FINDING OF LUNG FIELD (7) Brain metastases Code(s): C79.31 - SECONDARY MALIGNANT NEOPLASM OF BRAIN
--- NOTE | 2016-07-07 10:49 | PN ---
Physical Exam: SUBJECTIVE: Patient seen and examined. No acute events overnight. Patient denies any chest pain or shortness of breath. OBJECTIVE: Vital Signs Period Temp Pulse Resp BP Sys/[place] Pulse Ox Last 24 Hr 96.3 F-98.6 F 54-98 18-20 100-122/53-72 98-98 GENERAL: The patient is awake, alert, and fully oriented, anxious HEAD: Normal with no signs of trauma. EYES: PERRL, extraocular movements intact, sclera anicteric, conjunctiva clear. No ptosis. ENT: Ears normal, nares patent, oropharynx clear without exudates, moist mucous membranes. NECK: Trachea midline, full range of motion, supple. LUNGS: Breath sounds equal, clear to auscultation bilaterally, no wheezes, no crackles, no accessory muscle use. HEART: Sinus ryhthm 60s ABDOMEN: Soft, nontender, nondistended, normoactive bowel sounds, no guarding, no rebound, no hepatosplenomegaly, no masses. EXTREMITIES: 2+ pulses, warm, well-perfused, no edema. NEUROLOGICAL: Normal speech, gait not observed. PSYCH: Normal mood, normal affect. SKIN: Warm, dry, normal turgor, no rashes or lesions noted Laboratory Results - last 24 hr 07/06/16 07/06/16 07/06/16 11:59 15:45 15:45 WBC 12.0 H RBC 3.37 L Hgb 9.6 L Hct 30.0 L MCV 89.3 MCHC 32.1 RDW 15.3 Plt Count 192 MPV 8.4 PTT (Actin FS) 52.0 H Sodium Potassium Chloride Carbon Dioxide Anion Gap BUN Creatinine Creat Clearance w eGFR POC Glucometer [id number] Random Glucose Calcium Phosphorus Magnesium Total Bilirubin AST ALT Alkaline Phosphatase Total Protein Albumin Blood Type Antibody Screen 07/06/16 07/06/16 07/07/16 17:12 21:30 05:35 WBC 11.6 H RBC 3.35 L Hgb 9.9 L Hct 30.1 L MCV 89.7 MCHC 32.8 RDW 14.7 Plt Count 210 MPV 8.0 PTT (Actin FS) Sodium Potassium Chloride Carbon Dioxide Anion Gap BUN Creatinine Creat Clearance w eGFR POC Glucometer 246 178 Random Glucose Calcium Phosphorus Magnesium Total Bilirubin AST ALT Alkaline Phosphatase Total Protein Albumin Blood Type Antibody Screen 0207/07/16 07/07/16 05:35 05:35 05:35 WBC RBC Hgb Hct MCV MCHC RDW Plt Count MPV PTT (Actin FS) 55.1 H Sodium 145 Potassium 4.1 Chloride 113 H Carbon Dioxide 21 Anion Gap 11 BUN 32 H Creatinine 1.4 H Creat Clearance w eGFR 36.66 POC Glucometer Random Glucose 176 H Calcium 8.0 L Phosphorus 3.5 Magnesium 1.9 Total Bilirubin 0.4 D AST 23 D ALT 36 D Alkaline Phosphatase 83 Total Protein 6.1 L Albumin 2.9 L Blood Type A POSITIVE Antibody Screen Negative 07/07/16 05:50 WBC RBC Hgb Hct MCV MCHC RDW Plt Count MPV PTT (Actin FS) Sodium Potassium Chloride Carbon Dioxide Anion Gap BUN Creatinine Creat Clearance w eGFR POC Glucometer 170 Random Glucose Calcium Phosphorus Magnesium Total Bilirubin AST ALT Alkaline Phosphatase Total Protein Albumin Blood Type Antibody Screen Active Medications Generic Name Dose Route Start Last Admin Trade Name Freq PRN Reason Stop Dose Admin Acetaminophen 650 mg 07/06/16 15:20 Tylenol - PO Q4H PRN FEVER OR PAIN Alprazolam 0.25 mg 07/06/16 10:53 07/06/16 20:52 Xanax - PO 0.25 mg Q8H PRN Administration ANXIETY Atorvastatin Calcium 20 mg 07/06/16 22:00 07/06/16 21:32 Lipitor - PO 20 mg HS ANIVAL Administration Carvedilol 6.25 mg 07/06/16 22:00 07/07/16 09:50 Coreg - PO 6.25 mg BID ANIVAL Administration Cholecalciferol 1,000 unit 07/07/16 10:00 07/07/16 09:50 Vitamin D3 - PO 1,000 unit DAILY ANIVAL Administration Dexamethasone Sodium Phosphate 4 mg 07/06/16 21:00 07/07/16 09:50 Decadron Injection - IVPB 4 mg Q6H-IV ANIVAL Administration Heparin Sodium (Porcine) 1,000 unit 07/06/16 15:20 Heparin - IVPUSH PRN PRN Heparin Heparin Sodium (Porcine) 5,000 unit 07/06/16 15:20 Heparin - IVPUSH PRN PRN Heparin Heparin Sodium (Porcine) 1,000 unit 07/06/16 15:20 Heparin - IVPUSH PRN PRN Heparin Heparin Sodium (Porcine) 5,000 unit 07/06/16 15:20 Heparin - IVPUSH PRN PRN Heparin Piperacillin Sod/Tazobactam Sod 50 mls @ 100 mls/hr 07/05/16 18:00 07/07/16 09: 50 Zosyn 3.375gm Ivpb (Pre-Docked) IVPB 100 mls/hr Q8H-IV ANIVAL Administration Protocol Heparin Sodium (Porcine) 25, 500 mls @ 20 mls/hr 07/06/16 15:20 07/06/16 17:23 000 unit/ Sodium Chloride IV 20 mls/hr TITR ANIVAL Administration Protocol 1,000 UNIT/HR Pantoprazole Sodium 100 mls @ 200 mls/hr 07/06/16 22:00 07/06/16 21:33 Protonix 40mg Ivpb (Pre-Docked) IVPB 200 mls/hr HS ANIVAL Administration Sodium Chloride 1,000 mls @ 60 mls/hr 07/06/16 15:20 07/06/16 17:24 Normal Saline - IV 60 mls/hr ASDIR [facility] Administration Insulin Aspart 1 vial 07/06/16 14:02 07/07/16 06:01 Novolog Vial Sliding Scale - SQ 4 units ACHS [facility] Administration Protocol Ondansetron HCl 4 mg 07/06/16 15:20 Zofran Injection IVPB Q6H PRN NAUSEA Valsartan 160 mg 07/07/16 10:00 07/07/16 09:51 Diovan - PO 160 mg DAILY [facility] Administration Zolpidem Tartrate 5 mg 07/04/16 15:58 07/06/16 21:32 Ambien - PO 5 mg HS PRN Administration INSOMNIA ASSESSMENT/PLAN: Patient is a 76 year old female with a significant past medical history of 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 She presents to the ED on 07/03/2016 with chest pain radiating to her left arm with shortness of breath. She was found to have a right lower extremity DVT and LLL Pulmonary Embolism on admission. Imaging: Chest CT/Chest CTA 07/03/2016 - Positive PE LL arteral branches. 2 left lung masses with additional nod. and liver lesions consistent with malignancy. CT/Head CT 07/03/2016 - Moderate atrophy and chronic microvascular ischemic changes focal cortical and subcortical enhancements in the right parital lobe, lesions measuring 11 x 6cm findings suspicions for brain mets. Hematology: DVT/Pulmonary Embolism - acute Assessment/Plan: Chest CT/Chest CTA 07/03/2016 - Positive PE LL arteral branches. 2 left lung masses with additional nod. and liver lesions consistent with malignancy. On a heparin drip started on 07/03/2016 Hematology following tolerating room air, oxygen sats stable monitor Aptt, daily CBC Monitor closely Oncology: Metastatic cancer (liver, lung, brain metastases) unknown primary Assessment/Plan: Pending IR tissue biopsy and MRI of brain pending renal function improvement On Decadron 4mg q6 hours Needs ongoing neuro assessment, was reported to be confused intermittently on admission, no confusion on my exam. Hematology/Oncology following Tolerating room air Cardiology: Elevated troponins - acute Assessment/Plan: Troponins 0.91, 3.61, 2.08, 0.89 Likely due to PE, not likely MD Cardiology following Coronary Artery Disease s/p CABG Assessment/Plan: on Diovan, Coreq, ASA on hold for liver biopsy Hypertension - chronic Assessment/Plan: Controlled on Diovan, Coreq Hyperlipidemia - chronic Assessment/Plan: On Lipitor ID: UTI - acute Assessment/Plan: Urine cultures with E-coli Leukocytosis improving, remains afebrile, vitals stable ID consulted and started patient on Zosyn Endocrine: Assessment/Plan: Diabetes Mellitus Novolog sliding scale - increased sliding scale standing dose BGMs elevated in a.m. started on Levemir and monitor F.E.N. Fluids: Normal saline @ 60cc/hr Electrolytes: BMP daily Nutrition: Diabetic diet Prophylaxis: DVT: Heparin drip GI: Protonix Visit type - Emergency Visit Emergency Visit: Yes ED Registration Date: 07/03/16 Care time: The patient presented to the Emergency Department on the above date and was hospitalized for further evaluation of their emergent condition. - New Patient This patient is new to me today: No - Critical Care Critical Care patient: No - Discharge Referral Referred to [facility] Med [facility].C.: No
[2016-07-07 15:38] LABS: MCH 28.9 pg (25.7-33.7); MEAN CELL VOLUME 90.4 fl (80-96); MEAN PLT VOLUME 7.9 fl (7.5-11.1); PLATELET COUNT 234 K/MM3 (134-434); RDW 15.4 % (11.6-15.6); WHITE BLOOD COUNT 12.4 K/mm3 (4.0-10.0)
--- NOTE | 2016-07-07 16:19 | PN ---
Progress Note, Physician History of Present Illness: patient is stable no new issues patient doing very well - Current Medication List Current Medications: Active Medications Acetaminophen (Tylenol -) 650 mg PO Q4H PRN PRN Reason: FEVER OR PAIN Alprazolam (Xanax -) 0.25 mg PO Q8H PRN PRN Reason: ANXIETY Last Admin: 07/06/16 20:52 Dose: 0.25 mg Atorvastatin Calcium (Lipitor -) 20 mg PO HS ANIVAL Last Admin: 07/06/16 21:32 Dose: 20 mg Carvedilol (Coreg -) 6.25 mg PO BID ANIVAL Last Admin: 07/07/16 09:50 Dose: 6.25 mg Cholecalciferol (Vitamin D3 -) 1,000 unit PO DAILY ANIVAL Last Admin: 07/07/16 09:50 Dose: 1,000 unit Dexamethasone Sodium Phosphate (Decadron Injection -) 4 mg IVPB Q6H-IV ANIVAL Last Admin: 07/07/16 14:04 Dose: 4 mg Heparin Sodium (Porcine) (Heparin -) 1,000 unit IVPUSH PRN PRN PRN Reason: Heparin Heparin Sodium (Porcine) (Heparin -) 5,000 unit IVPUSH PRN PRN PRN Reason: Heparin Heparin Sodium (Porcine) (Heparin -) 1,000 unit IVPUSH PRN PRN PRN Reason: Heparin Heparin Sodium (Porcine) (Heparin -) 5,000 unit IVPUSH PRN PRN PRN Reason: Heparin Piperacillin Sod/Tazobactam Sod (Zosyn 3.375gm Ivpb (Pre-Docked)) 50 mls @ 100 mls/hr IVPB Q8H-IV ANIVAL PRN Reason: Protocol Last Admin: 07/07/16 09:50 Dose: 100 mls/hr Heparin Sodium (Porcine) 25, (000 unit/ Sodium Chloride) 500 mls @ 20 mls/hr IV TITR ANIVAL; 1,000 UNIT/HR PRN Reason: Protocol Last Admin: 07/06/16 17:23 Dose: 20 mls/hr Pantoprazole Sodium (Protonix 40mg Ivpb (Pre-Docked)) 100 mls @ 200 mls/hr IVPB HS ANIVAL Last Admin: 07/06/16 21:33 Dose: 200 mls/hr Sodium Chloride (Normal Saline -) 1,000 mls @ 60 mls/hr IV ASDIR [facility] Last Admin: 07/06/16 17:24 Dose: 60 mls/hr Insulin Aspart (Novolog Vial Sliding Scale -) 1 vial SQ ACHS [facility] PRN Reason: Protocol Last Admin: 07/07/16 11:54 Dose: Not Given Ondansetron HCl (Zofran Injection) 4 mg IVPB Q6H PRN PRN Reason: NAUSEA Valsartan (Diovan -) 160 mg PO DAILY ANIVAL Last Admin: 07/07/16 09:51 Dose: 160 mg Zolpidem Tartrate (Ambien -) 5 mg PO HS PRN PRN Reason: INSOMNIA Last Admin: 07/06/16 21:32 Dose: 5 mg - Objective Vital Signs: Vital Signs Temperature 97.6 F 07/07/16 10:00 Pulse Rate 69 07/07/16 14:00 Respiratory Rate 20 07/07/16 14:00 Blood Pressure 124/74 07/07/16 14:00 O2 Sat by Pulse Oximetry (%) 98 07/07/16 09:00 Constitutional: Yes: No Distress, Calm Cardiovascular: Yes: Regular Rate and Rhythm Respiratory: Yes: Regular, CTA Bilaterally Gastrointestinal: Yes: Normal Bowel Sounds, Soft Musculoskeletal: Yes: WNL Extremities: Yes: WNL Neurological: Yes: Alert, Oriented Psychiatric: Yes: Alert, Oriented Labs: CBC, BMP 07/07/16 15:15 07/07/16 05:35 INR, PTT INR 1.32 (0.82-1.09) H 07/03/16 10:30 Assessment/Plan this patient with a very high chance of having metastatic lung ca including brain mets and liver mets,who has developed pul embolism and dvt probably as consequence of the primary process patient will need a tissue diagnosis and the patient is waiting for the same as the plan is to stabilize the patient and then do biopsy Problem List - Problems (1) Pulmonary embolism Code(s): I26.99 - OTHER PULMONARY EMBOLISM WITHOUT ACUTE COR PULMONALE Qualifiers: Pulmonary embolism type: other Chronicity: acute Acute cor pulmonale presence: without acute cor pulmonale Qualified Code(s): I26.99 - Other pulmonary embolism without acute cor pulmonale (2) DVT (deep venous thrombosis) Code(s): I82.409 - ACUTE EMBOLISM AND THOMBOS UNSP DEEP VN UNSP LOWER EXTREMITY Qualifiers: DVT location: lower extremity Affected thrombotic vein of extremity: popliteal Laterality: right Chronicity: acute Qualified Code(s): I82.431 - Acute embolism and thrombosis of right popliteal vein (3) Chest pain Code(s): R07.9 - CHEST PAIN, UNSPECIFIED Qualifiers: Chest pain type: unspecified Qualified Code(s): R07.9 - Chest pain, unspecified (4) Elevated troponin Code(s): R79.89 - OTHER SPECIFIED ABNORMAL FINDINGS OF BLOOD CHEMISTRY (5) Pulmonary hypertension Code(s): I27.2 - OTHER SECONDARY PULMONARY HYPERTENSION (6) Lung mass Code(s): R91.8 - OTHER NONSPECIFIC ABNORMAL FINDING OF LUNG FIELD (7) Brain metastases Code(s): C79.31 - SECONDARY MALIGNANT NEOPLASM OF BRAIN plan continue current mgmt patient awaiting for biopsy patient to get ivc filter tomorrow continue abx
[2016-07-07] MEDS: SODIUM CHLORIDE 1,000 ML IV SCH (16:57)
[2016-07-07] MEDS: HEPARIN - 25,000 UNIT in SODIUM CHLORIDE 495 ML IV SCH (16:57)
[2016-07-07] MEDS: PANTOPRAZOLE SODIUM 100 ML IVPB SCH (21:53)
[2016-07-07] MEDS: ATORVASTATIN CA 20 MG TABLET (FP) PO SCH (21:53)
[2016-07-07] MEDS: ZOLPIDEM TARTRATE 5 MG TABLET PO PRN (21:53)
[2016-07-07] MEDS: INSULIN DETEMIR 100 UNITS/ML MDV SQ SCH (22:11)
[2016-07-08] MEDS: PIPERACILLIN/TAZOB 3.375 GM 50 ML IVPB SCH ×3 (01:43→17:06)
[2016-07-08] MEDS: DEXAMETHASONE SOD PHOSPHATE 4 MG/1 ML VIAL IVPB SCH ×4 (02:02→22:22)
[2016-07-08] MEDS: INSULIN SLIDING SCALE (NOVOLOG) 1 VIAL SQ SCH ×4 (06:38→22:22)
[2016-07-08 07:15] LABS: BASOPHIL 0.1 % (0-2.0); MCH 29.4 pg (25.7-33.7); MCHC 33.1 g/dl (32.0-36.0); MEAN CELL VOLUME 88.8 fl (80-96); MEAN PLT VOLUME 8.1 fl (7.5-11.1); NEUTROPHILS 83.5 % (42.8-82.8); PLATELET COUNT 218 K/MM3 (134-434); RDW 14.9 % (11.6-15.6); WHITE BLOOD COUNT 10.6 K/mm3 (4.0-10.0)
[2016-07-08 07:42] LABS: INR 1.29 (0.82-1.09); PROTHROMBIN TIME (PATIENT) 14.3 SEC (9.98-11.88)
[2016-07-08 07:46] LABS: ALBUMIN 2.8 g/dl (3.4-5.0); CALCIUM 8.3 mg/dL (8.5-10.1)
[2016-07-08 07:49] LABS: BILIRUBIN,TOTAL 0.4 mg/dL (0.2-1.0); CREATININE 1.3 mg/dL (0.55-1.02); TOT PROT 5.6 g/dl (6.4-8.2)
[2016-07-08] MEDS: CHOLECALCIFEROL (VITAMIN D3) 1,000 UNIT TABLET (FP) PO SCH (09:12)
[2016-07-08] MEDS: CARVEDILOL 6.25 MG TABLET (FP) PO SCH ×2 (09:12→22:22)
[2016-07-08] MEDS: VALSARTAN 160 MG TABLET (UD) PO SCH (09:12)
--- NOTE | 2016-07-08 09:53 | PN ---
Progress Note, Physician History of Present Illness: pulmonary alert,nad,for IVC filter today and ct guided bx tomorrow. - Current Medication List Current Medications: Active Medications Acetaminophen (Tylenol -) 650 mg PO Q4H PRN PRN Reason: FEVER OR PAIN Alprazolam (Xanax -) 0.25 mg PO Q8H PRN PRN Reason: ANXIETY Last Admin: 07/06/16 20:52 Dose: 0.25 mg Atorvastatin Calcium (Lipitor -) 20 mg PO HS ANIVAL Last Admin: 07/07/16 21:53 Dose: 20 mg Carvedilol (Coreg -) 6.25 mg PO BID ANIVAL Last Admin: 07/08/16 09:12 Dose: 6.25 mg Cholecalciferol (Vitamin D3 -) 1,000 unit PO DAILY ANIVAL Last Admin: 07/08/16 09:12 Dose: 1,000 unit Dexamethasone Sodium Phosphate (Decadron Injection -) 4 mg IVPB Q6H-IV ANIVAL Last Admin: 07/08/16 09:12 Dose: 4 mg Heparin Sodium (Porcine) (Heparin -) 1,000 unit IVPUSH PRN PRN PRN Reason: Heparin Heparin Sodium (Porcine) (Heparin -) 5,000 unit IVPUSH PRN PRN PRN Reason: Heparin Heparin Sodium (Porcine) (Heparin -) 1,000 unit IVPUSH PRN PRN PRN Reason: Heparin Heparin Sodium (Porcine) (Heparin -) 5,000 unit IVPUSH PRN PRN PRN Reason: Heparin Piperacillin Sod/Tazobactam Sod (Zosyn 3.375gm Ivpb (Pre-Docked)) 50 mls @ 100 mls/hr IVPB Q8H-IV ANIVAL PRN Reason: Protocol Last Admin: 07/08/16 09:11 Dose: 100 mls/hr Heparin Sodium (Porcine) 25, (000 unit/ Sodium Chloride) 500 mls @ 20 mls/hr IV TITR ANIVAL; 1,000 UNIT/HR PRN Reason: Protocol Last Admin: 07/07/16 16:57 Dose: 20 mls/hr Pantoprazole Sodium (Protonix 40mg Ivpb (Pre-Docked)) 100 mls @ 200 mls/hr IVPB HS ANIVAL Last Admin: 07/07/16 21:53 Dose: 200 mls/hr Sodium Chloride (Normal Saline -) 1,000 mls @ 60 mls/hr IV ASDIR [facility] Last Admin: 07/07/16 16:57 Dose: 60 mls/hr Insulin Aspart (Novolog Vial Sliding Scale -) 1 vial SQ ACHS ANIVAL PRN Reason: Protocol Last Admin: 07/08/16 06:38 Dose: 4 units Insulin Detemir (Levemir Vial) 5 units SQ HS [facility] Last Admin: 07/07/16 22:11 Dose: 5 units Ondansetron HCl (Zofran Injection) 4 mg IVPB Q6H PRN PRN Reason: NAUSEA Valsartan (Diovan -) 160 mg PO DAILY [facility] Last Admin: 07/08/16 09:12 Dose: 160 mg Zolpidem Tartrate (Ambien -) 5 mg PO HS PRN PRN Reason: INSOMNIA Last Admin: 07/07/16 21:53 Dose: 5 mg - Objective Vital Signs: Vital Signs Temperature 97.7 F 07/08/16 02:00 Pulse Rate 68 07/08/16 08:59 Respiratory Rate 18 07/08/16 08:59 Blood Pressure 131/72 07/08/16 08:59 O2 Sat by Pulse Oximetry (%) 98 07/07/16 20:46 Constitutional: Yes: Well Nourished, Calm Eyes: Yes: WNL HENT: Yes: WNL Neck: Yes: WNL Cardiovascular: Yes: Regular Rate and Rhythm, S1, S2 Respiratory: Yes: Diminished Gastrointestinal: Yes: Normal Bowel Sounds, Soft Extremities: Yes: WNL Edema: No Labs: CBC, BMP 07/08/16 05:35 07/08/16 05:35 INR, PTT INR 1.29 (0.82-1.09) H 07/08/16 05:35 Assessment/Plan A/P Acute Pulmonary Emboli DVT Pulmonary HTN +Troponins 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 CAD s/p CABG HTN DM UTI - CT guided liver biopsy and IVC filter placement - O2 to keep SpO2 >90% - OOB to chair Problem List - Problems (1) Pulmonary embolism Code(s): I26.99 - OTHER PULMONARY EMBOLISM WITHOUT ACUTE COR PULMONALE Qualifiers: Pulmonary embolism type: other Chronicity: acute Acute cor pulmonale presence: without acute cor pulmonale Qualified Code(s): I26.99 - Other pulmonary embolism without acute cor pulmonale (2) DVT (deep venous thrombosis) Code(s): I82.409 - ACUTE EMBOLISM AND THOMBOS UNSP DEEP VN UNSP LOWER EXTREMITY Qualifiers: DVT location: lower extremity Affected thrombotic vein of extremity: popliteal Laterality: right Chronicity: acute Qualified Code(s): I82.431 - Acute embolism and thrombosis of right popliteal vein (3) Chest pain Code(s): R07.9 - CHEST PAIN, UNSPECIFIED Qualifiers: Chest pain type: unspecified Qualified Code(s): R07.9 - Chest pain, unspecified (4) Elevated troponin Code(s): R79.89 - OTHER SPECIFIED ABNORMAL FINDINGS OF BLOOD CHEMISTRY (5) Pulmonary hypertension Code(s): I27.2 - OTHER SECONDARY PULMONARY HYPERTENSION (6) Lung mass Code(s): R91.8 - OTHER NONSPECIFIC ABNORMAL FINDING OF LUNG FIELD (7) Brain metastases Code(s): C79.31 - SECONDARY MALIGNANT NEOPLASM OF BRAIN
--- NOTE | 2016-07-08 10:46 | PN ---
Progress Note, Physician History of Present Illness: seen and examined today in nad. no overnight events. pt wants to go home. denies any complaints. - Current Medication List Current Medications: Active Medications Acetaminophen (Tylenol -) 650 mg PO Q4H PRN PRN Reason: FEVER OR PAIN Alprazolam (Xanax -) 0.25 mg PO Q8H PRN PRN Reason: ANXIETY Last Admin: 07/06/16 20:52 Dose: 0.25 mg Atorvastatin Calcium (Lipitor -) 20 mg PO HS ANIVAL Last Admin: 07/07/16 21:53 Dose: 20 mg Carvedilol (Coreg -) 6.25 mg PO BID ANIVAL Last Admin: 07/08/16 09:12 Dose: 6.25 mg Cholecalciferol (Vitamin D3 -) 1,000 unit PO DAILY ANIVAL Last Admin: 07/08/16 09:12 Dose: 1,000 unit Dexamethasone Sodium Phosphate (Decadron Injection -) 4 mg IVPB Q6H-IV ANIVAL Last Admin: 07/08/16 09:12 Dose: 4 mg Heparin Sodium (Porcine) (Heparin -) 1,000 unit IVPUSH PRN PRN PRN Reason: Heparin Heparin Sodium (Porcine) (Heparin -) 5,000 unit IVPUSH PRN PRN PRN Reason: Heparin Heparin Sodium (Porcine) (Heparin -) 1,000 unit IVPUSH PRN PRN PRN Reason: Heparin Heparin Sodium (Porcine) (Heparin -) 5,000 unit IVPUSH PRN PRN PRN Reason: Heparin Piperacillin Sod/Tazobactam Sod (Zosyn 3.375gm Ivpb (Pre-Docked)) 50 mls @ 100 mls/hr IVPB Q8H-IV ANIVAL PRN Reason: Protocol Last Admin: 07/08/16 09:11 Dose: 100 mls/hr Heparin Sodium (Porcine) 25, (000 unit/ Sodium Chloride) 500 mls @ 20 mls/hr IV TITR ANIVAL; 1,000 UNIT/HR PRN Reason: Protocol Last Admin: 07/07/16 16:57 Dose: 20 mls/hr Pantoprazole Sodium (Protonix 40mg Ivpb (Pre-Docked)) 100 mls @ 200 mls/hr IVPB HS ANIVAL Last Admin: 07/07/16 21:53 Dose: 200 mls/hr Sodium Chloride (Normal Saline -) 1,000 mls @ 60 mls/hr IV ASDIR [facility] Last Admin: 07/07/16 16:57 Dose: 60 mls/hr Insulin Aspart (Novolog Vial Sliding Scale -) 1 vial SQ ACHS [facility] PRN Reason: Protocol Last Admin: 07/08/16 06:38 Dose: 4 units Insulin Detemir (Levemir Vial) 5 units SQ HS [facility] Last Admin: 07/07/16 22:11 Dose: 5 units Ondansetron HCl (Zofran Injection) 4 mg IVPB Q6H PRN PRN Reason: NAUSEA Valsartan (Diovan -) 160 mg PO DAILY [facility] Last Admin: 07/08/16 09:12 Dose: 160 mg Zolpidem Tartrate (Ambien -) 5 mg PO HS PRN PRN Reason: INSOMNIA Last Admin: 07/07/16 21:53 Dose: 5 mg - Objective Vital Signs: Vital Signs Temperature 97.7 F 07/08/16 02:00 Pulse Rate 68 07/08/16 08:59 Respiratory Rate 18 07/08/16 08:59 Blood Pressure 131/72 07/08/16 08:59 O2 Sat by Pulse Oximetry (%) 98 07/07/16 20:46 Constitutional: Yes: No Distress, Moderate Distress Eyes: Yes: WNL, Conjunctiva Clear, EOM Intact, PERRL HENT: Yes: WNL, Atraumatic, Normocephalic Neck: Yes: WNL, Supple, Trachea Midline Cardiovascular: Yes: Regular Rate and Rhythm, S1, S2. No: Bradycardia, Tachycardia, Pulse Irregular, Bruit, JVD, Gallop, Murmur, Rub, S3, S4, Varicosities Respiratory: Yes: Regular, Diminished. No: Rales, Rhonchi, Wheezes Gastrointestinal: Yes: WNL, Normal Bowel Sounds, Soft. No: Distention, Tenderness Musculoskeletal: Yes: WNL Extremities: Yes: WNL Edema: Yes Edema: LLE: 1+, RLE: 1+ Peripheral Pulses WNL: Yes Peripheral Pulses: Left Doralis Pedis: 2+, Right Dorsalis Pedis: 2+ Integumentary: Yes: WNL Neurological: Yes: Alert, Oriented Psychiatric: Yes: Alert, Oriented Labs: CBC, BMP 07/08/16 05:35 07/08/16 05:35 INR, PTT INR 1.29 (0.82-1.09) H 07/08/16 05:35 - ....Imaging Chest X-ray: Report Reviewed, Image Reviewed EKG: Report Reviewed, Image Reviewed Other: Report Reviewed, Image Reviewed (tele-nsr, sinus bradycardia, apcs, pvcs) Assessment/Plan Suspected metastatic lung CA to liver and brain Acute pulmonary embolism REC: On IV heparin for PE/DVT, planned for IVC filter today Elevated troponin secondary to PE with strain Echo showed mildly reduce LV function, normal RV size but no comment on RV function, mildly elevated RVSP, aortic sclerosis, mild to mod MR Will monitor tele during admission Plan for IR guided biopsy tomorrow
--- NOTE | 2016-07-08 14:32 | PN ---
Physical Exam: SUBJECTIVE: Patient seen and examined. She denies any chest pain or shortness of breath. for IVC filter placement today. Liver biopsy tomorrow OBJECTIVE: GENERAL: The patient is awake, alert, and fully oriented, anxious HEAD: Normal with no signs of trauma. EYES: PERRL, extraocular movements intact, sclera anicteric, conjunctiva clear. No ptosis. ENT: Ears normal, nares patent, oropharynx clear without exudates, moist mucous membranes. NECK: Trachea midline, full range of motion, supple. LUNGS: Breath sounds equal, clear to auscultation bilaterally, no wheezes, no crackles, no accessory muscle use. HEART: Sinus ryhthm 60s ABDOMEN: Soft, nontender, nondistended, normoactive bowel sounds, no guarding, no rebound, no hepatosplenomegaly, no masses. EXTREMITIES: 2+ pulses, warm, well-perfused, no edema. NEUROLOGICAL: Normal speech, gait not observed. PSYCH: Normal mood, normal affect. SKIN: Warm, dry, normal turgor, no rashes or lesions noted Vital Signs Period Temp Pulse Resp BP Sys/[place] Pulse Ox Last 24 Hr 97.7 F-98 F 52-71 16-20 119-148/54-80 97-100 Laboratory Results - last 24 hr 07/07/16 07/07/16 07/07/16 15:15 15:15 16:51 WBC 12.4 H RBC 3.64 Hgb 10.5 L Hct 32.9 MCV 90.4 MCHC 32.0 RDW 15.4 Plt Count 234 MPV 7.9 Neutrophils % Lymphocytes % Monocytes % Eosinophils % Basophils % INR PTT (Actin FS) 64.7 H Sodium Potassium Chloride Carbon Dioxide Anion Gap BUN Creatinine Creat Clearance w eGFR POC Glucometer 177 Random Glucose Calcium Total Bilirubin AST ALT Alkaline Phosphatase Total Protein Albumin 07/07/16 07/08/16 07/08/16 22:08 05:35 05:35 WBC 10.6 H RBC 3.31 L Hgb 9.7 L Hct 29.4 L MCV 88.8 MCHC 33.1 RDW 14.9 Plt Count 218 MPV 8.1 Neutrophils % 83.5 H Lymphocytes % 10.8 Monocytes % 5.6 D Eosinophils % 0.0 D Basophils % 0.1 INR PTT (Actin FS) Sodium 145 Potassium 4.2 Chloride 115 H Carbon Dioxide 22 Anion Gap 8 BUN 32 H Creatinine 1.3 H Creat Clearance w eGFR 39.93 POC Glucometer 174 Random Glucose 169 H Calcium 8.3 L Total Bilirubin 0.4 AST 16 D ALT 33 Alkaline Phosphatase 82 Total Protein 5.6 L Albumin 2.8 L 07/08/16 07/08/16 07/08/16 05:35 05:35 06:08 WBC RBC Hgb Hct MCV MCHC RDW Plt Count MPV Neutrophils % Lymphocytes % Monocytes % Eosinophils % Basophils % INR 1.29 H PTT (Actin FS) 66.4 H Sodium Potassium Chloride Carbon Dioxide Anion Gap BUN Creatinine Creat Clearance w eGFR POC Glucometer 175 Random Glucose Calcium Total Bilirubin AST ALT Alkaline Phosphatase Total Protein Albumin Active Medications Generic Name Dose Route Start Last Admin Trade Name Freq PRN Reason Stop Dose Admin Acetaminophen 650 mg 07/06/16 15:20 Tylenol - PO Q4H PRN FEVER OR PAIN Alprazolam 0.25 mg 07/06/16 10:53 07/06/16 20:52 Xanax - PO 0.25 mg Q8H PRN Administration ANXIETY Atorvastatin Calcium 20 mg 07/06/16 22:00 07/07/16 21:53 Lipitor - PO 20 mg HS ANIVAL Administration Carvedilol 6.25 mg 07/06/16 22:00 07/08/16 09:12 Coreg - PO 6.25 mg BID ANIVAL Administration Cholecalciferol 1,000 unit 07/07/16 10:00 07/08/16 09:12 Vitamin D3 - PO 1,000 unit DAILY ANIVAL Administration Dexamethasone Sodium Phosphate 4 mg 07/06/16 21:00 07/08/16 09:12 Decadron Injection - IVPB 4 mg Q6H-IV ANIVAL Administration Heparin Sodium (Porcine) 1,000 unit 07/06/16 15:20 Heparin - IVPUSH PRN PRN Heparin Heparin Sodium (Porcine) 5,000 unit 07/06/16 15:20 Heparin - IVPUSH PRN PRN Heparin Heparin Sodium (Porcine) 1,000 unit 07/06/16 15:20 Heparin - IVPUSH PRN PRN Heparin Heparin Sodium (Porcine) 5,000 unit 07/06/16 15:20 Heparin - IVPUSH PRN PRN Heparin Piperacillin Sod/Tazobactam Sod 50 mls @ 100 mls/hr 07/05/16 18:00 07/08/16 09: 11 Zosyn 3.375gm Ivpb (Pre-Docked) IVPB 100 mls/hr Q8H-IV ANIVAL Administration Protocol Heparin Sodium (Porcine) 25, 500 mls @ 20 mls/hr 07/06/16 15:20 07/07/16 16:57 000 unit/ Sodium Chloride IV 20 mls/hr TITR ANIVAL Administration Protocol 1,000 UNIT/HR Pantoprazole Sodium 100 mls @ 200 mls/hr 07/06/16 22:00 07/07/16 21:53 Protonix 40mg Ivpb (Pre-Docked) IVPB 200 mls/hr HS ANIVAL Administration Sodium Chloride 1,000 mls @ 60 mls/hr 07/06/16 15:20 07/07/16 16:57 Normal Saline - IV 60 mls/hr ASDIR ANIVAL Administration Insulin Aspart 1 vial 07/06/16 14:02 07/08/16 14:29 Novolog Vial Sliding Scale - SQ Not Given ACHS ANIVAL Protocol Insulin Detemir 5 units 07/07/16 22:00 07/07/16 22:11 Levemir Vial SQ 5 units HS ANIVAL Administration Ondansetron HCl 4 mg 07/06/16 15:20 Zofran Injection IVPB Q6H PRN NAUSEA Valsartan 160 mg 07/07/16 10:00 07/08/16 09:12 Diovan - PO 160 mg DAILY ANIVAL Administration Zolpidem Tartrate 5 mg 07/04/16 15:58 07/07/16 21:53 Ambien - PO 5 mg HS PRN Administration INSOMNIA ASSESSMENT/PLAN: Patient is a 76 year old female with a significant past medical history of 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 She presents to the ED on 07/03/2016 with chest pain radiating to her left arm with shortness of breath. She was found to have a right lower extremity DVT and LLL Pulmonary Embolism on admission. Imaging: Chest CT/Chest CTA 07/03/2016 - Positive PE LL arterial branches. 2 left lung masses with additional nod. and liver lesions consistent with malignancy. CT/Head CT 07/03/2016 - Moderate atrophy and chronic microvascular ischemic changes focal cortical and subcortical enhancements in the right parietal lobe, lesions measuring 11 x 6cm findings suspicions for brain mets. Hematology: DVT/Pulmonary Embolism - acute Assessment/Plan: Chest CT/Chest CTA 07/03/2016 - Positive PE LL arteral branches. 2 left lung masses with additional nod. and liver lesions consistent with malignancy. On a heparin drip started on 07/03/2016 Hematology following tolerating room air, oxygen sats stable monitor Aptt, daily CBC Monitor closely for IVC filter today, liver biopsy tomorrow Oncology: Metastatic cancer (liver, lung, brain metastases) unknown primary Assessment/Plan: Pending IR tissue biopsy and MRI of brain pending renal function improvement On Decadron 4mg q6 hours Needs ongoing neuro assessment, was reported to be confused intermittently on admission, no confusion on my exam. Hematology/Oncology following Tolerating room air Cardiology: Elevated troponins - acute Assessment/Plan: Troponins 0.91, 3.61, 2.08, 0.89 Likely due to PE, not likely CA Cardiology following Coronary Artery Disease s/p CABG Assessment/Plan: on Diovan, Coreq, ASA on hold for liver biopsy Hypertension - chronic Assessment/Plan: Controlled on Diovan, Coreq Hyperlipidemia - chronic Assessment/Plan: On Lipitor ID: UTI - acute Assessment/Plan: Urine cultures with E-coli Leukocytosis improving, remains afebrile, vitals stable ID consulted and started patient on Zosyn Endocrine: Assessment/Plan: Diabetes Mellitus Novolog sliding scale - increased sliding scale standing dose BGMs elevated in a.m. started on Levemir and monitor F.E.N. Fluids: Normal saline @ 60cc/hr Electrolytes: BMP daily Nutrition: Diabetic diet Prophylaxis: DVT: Heparin drip GI: Protonix Visit type - Emergency Visit Emergency Visit: Yes ED Registration Date: 07/03/16 Care time: The patient presented to the Emergency Department on the above date and was hospitalized for further evaluation of their emergent condition. - New Patient This patient is new to me today: No - Critical Care Critical Care patient: No - Discharge Referral Referred to [facility] Med [facility] No
[2016-07-08] MEDS: HEPARIN - 25,000 UNIT in SODIUM CHLORIDE 495 ML IV SCH ×2 (14:50→17:05)
--- NOTE | 2016-07-08 17:04 | PN ---
Progress Note, Physician History of Present Illness: patient stable no issues ivc filter placed - Current Medication List Current Medications: Active Medications Acetaminophen (Tylenol -) 650 mg PO Q4H PRN PRN Reason: FEVER OR PAIN Alprazolam (Xanax -) 0.25 mg PO Q8H PRN PRN Reason: ANXIETY Last Admin: 07/06/16 20:52 Dose: 0.25 mg Atorvastatin Calcium (Lipitor -) 20 mg PO HS ANIVAL Last Admin: 07/07/16 21:53 Dose: 20 mg Carvedilol (Coreg -) 6.25 mg PO BID ANIVAL Last Admin: 07/08/16 09:12 Dose: 6.25 mg Cholecalciferol (Vitamin D3 -) 1,000 unit PO DAILY ANIVAL Last Admin: 07/08/16 09:12 Dose: 1,000 unit Dexamethasone Sodium Phosphate (Decadron Injection -) 4 mg IVPB Q6H-IV ANIVAL Last Admin: 07/08/16 14:50 Dose: 4 mg Heparin Sodium (Porcine) (Heparin -) 1,000 unit IVPUSH PRN PRN PRN Reason: Heparin Heparin Sodium (Porcine) (Heparin -) 5,000 unit IVPUSH PRN PRN PRN Reason: Heparin Heparin Sodium (Porcine) (Heparin -) 1,000 unit IVPUSH PRN PRN PRN Reason: Heparin Heparin Sodium (Porcine) (Heparin -) 5,000 unit IVPUSH PRN PRN PRN Reason: Heparin Piperacillin Sod/Tazobactam Sod (Zosyn 3.375gm Ivpb (Pre-Docked)) 50 mls @ 100 mls/hr IVPB Q8H-IV ANIVAL PRN Reason: Protocol Last Admin: 07/08/16 09:11 Dose: 100 mls/hr Heparin Sodium (Porcine) 25, (000 unit/ Sodium Chloride) 500 mls @ 20 mls/hr IV TITR ANIVAL; 1,000 UNIT/HR PRN Reason: Protocol Last Admin: 07/08/16 14:50 Dose: 20 mls/hr Pantoprazole Sodium (Protonix 40mg Ivpb (Pre-Docked)) 100 mls @ 200 mls/hr IVPB HS ANIVAL Last Admin: 07/07/16 21:53 Dose: 200 mls/hr Sodium Chloride (Normal Saline -) 1,000 mls @ 60 mls/hr IV ASDIR ANIVAL Last Admin: 02/12/17 16:57 Dose: 60 mls/hr Insulin Aspart (Novolog Vial Sliding Scale -) 1 vial SQ ACHS ANIVAL PRN Reason: Protocol Last Admin: 07/08/16 14:29 Dose: Not Given Insulin Detemir (Levemir Vial) 5 units SQ HS [facility] Last Admin: 07/07/16 22:11 Dose: 5 units Ondansetron HCl (Zofran Injection) 4 mg IVPB Q6H PRN PRN Reason: NAUSEA Valsartan (Diovan -) 160 mg PO DAILY [facility] Last Admin: 07/08/16 09:12 Dose: 160 mg Zolpidem Tartrate (Ambien -) 5 mg PO HS PRN PRN Reason: INSOMNIA Last Admin: 07/07/16 21:53 Dose: 5 mg - Objective Vital Signs: Vital Signs Temperature 97.7 F 07/08/16 02:00 Pulse Rate 62 07/08/16 14:10 Respiratory Rate 18 07/08/16 14:10 Blood Pressure 136/61 07/08/16 14:10 O2 Sat by Pulse Oximetry (%) 100 07/08/16 13:15 Constitutional: Yes: No Distress, Calm Cardiovascular: Yes: Regular Rate and Rhythm Respiratory: Yes: Regular, CTA Bilaterally Gastrointestinal: Yes: Normal Bowel Sounds, Soft Musculoskeletal: Yes: WNL Extremities: Yes: WNL Neurological: Yes: Alert, Oriented Psychiatric: Yes: Alert Labs: CBC, BMP 07/08/16 05:35 07/08/16 05:35 INR, PTT INR 1.29 (0.82-1.09) H 07/08/16 05:35 Assessment/Plan this patient with a very high chance of having metastatic lung ca including brain mets and liver mets,who has developed pul embolism and dvt probably as consequence of the primary process patient will need a tissue diagnosis and the patient is waiting for the same as the plan is to stabilize the patient and then do biopsy Problem List - Problems (1) Pulmonary embolism Code(s): I26.99 - OTHER PULMONARY EMBOLISM WITHOUT ACUTE COR PULMONALE Qualifiers: Pulmonary embolism type: other Chronicity: acute Acute cor pulmonale presence: without acute cor pulmonale Qualified Code(s): I26.99 - Other pulmonary embolism without acute cor pulmonale (2) DVT (deep venous thrombosis) Code(s): I82.409 - ACUTE EMBOLISM AND THOMBOS UNSP DEEP VN UNSP LOWER EXTREMITY Qualifiers: DVT location: lower extremity Affected thrombotic vein of extremity: popliteal Laterality: right Chronicity: acute Qualified Code(s): I82.431 - Acute embolism and thrombosis of right popliteal vein (3) Chest pain Code(s): R07.9 - CHEST PAIN, UNSPECIFIED Qualifiers: Chest pain type: unspecified Qualified Code(s): R07.9 - Chest pain, unspecified (4) Elevated troponin Code(s): R79.89 - OTHER SPECIFIED ABNORMAL FINDINGS OF BLOOD CHEMISTRY (5) Pulmonary hypertension Code(s): I27.2 - OTHER SECONDARY PULMONARY HYPERTENSION (6) Lung mass Code(s): R91.8 - OTHER NONSPECIFIC ABNORMAL FINDING OF LUNG FIELD (7) Brain metastases Code(s): C79.31 - SECONDARY MALIGNANT NEOPLASM OF BRAIN plan continue current mgmt patient awaiting for biopsy post ivc filter continue abx
[2016-07-08] MEDS: SODIUM CHLORIDE 1,000 ML IV SCH (17:06)
[2016-07-08] MEDS ORDERED: SODIUM CHLORIDE 1,000 ML IV SCH (17:49)
--- NOTE | 2016-07-08 22:05 | PN ---
Progress Note (short form) - Note Progress Note: Patient seen a d examined awake, alert c/o fatigue Last Vital Signs Temp Pulse Resp BP Pulse Ox 97.7 F 62 20 135/75 100 07/08/16 22:00 07/08/16 22:00 07/08/16 22:00 07/08/16 22:00 07/08/16 21:00 HEENT: KAREN, EOM Intact Oropharynx: No thrush, No mucositis Cor: RSR, No murmurs, No gallops Lungs: Clear to P&A Abd: Soft, Normal bowel sounds, No organomegaly Ext:No significant edema Abnormal Lab Results 07/08/16 07/08/16 07/08/16 05:35 05:35 05:35 WBC 10.6 H RBC 3.31 L Hgb 9.7 L Hct 29.4 L Neutrophils % 83.5 H INR 1.29 H PTT (Actin FS) Chloride 115 H BUN 32 H Creatinine 1.3 H Random Glucose 169 H Calcium 8.3 L Total Protein 5.6 L Albumin 2.8 L 07/08/16 05:35 WBC RBC Hgb Hct Neutrophils % INR PTT (Actin FS) 66.4 H Chloride BUN Creatinine Random Glucose Calcium Total Protein Albumin Current Medications Acetaminophen (Tylenol -) 650 mg PO Q4H PRN PRN Reason: FEVER OR PAIN Alprazolam (Xanax -) 0.25 mg PO Q8H PRN PRN Reason: ANXIETY Last Admin: 07/06/16 20:52 Dose: 0.25 mg Atorvastatin Calcium (Lipitor -) 20 mg PO HS [facility] Last Admin: 07/08/16 22:22 Dose: 20 mg Carvedilol (Coreg -) 6.25 mg PO BID [facility] Last Admin: 07/08/16 22:22 Dose: 6.25 mg Cholecalciferol (Vitamin D3 -) 1,000 unit PO DAILY [facility] Last Admin: 07/08/16 09:12 Dose: 1,000 unit Dexamethasone Sodium Phosphate (Decadron Injection -) 4 mg IVPB Q6H-IV ANIVAL Last Admin: 07/08/16 22:22 Dose: 4 mg Heparin Sodium (Porcine) (Heparin -) 1,000 unit IVPUSH PRN PRN PRN Reason: Heparin Heparin Sodium (Porcine) (Heparin -) 5,000 unit IVPUSH PRN PRN PRN Reason: Heparin Piperacillin Sod/Tazobactam Sod (Zosyn 3.375gm Ivpb (Pre-Docked)) 50 mls @ 100 mls/hr IVPB Q8H-IV ANIVAL PRN Reason: Protocol Last Admin: 07/09/16 01:27 Dose: 100 mls/hr Heparin Sodium (Porcine) 25, (000 unit/ Sodium Chloride) 500 mls @ 20 mls/hr IV TITR ANIVAL; 1,000 UNIT/HR PRN Reason: Protocol Last Admin: 07/08/16 17:05 Dose: 20 mls/hr Pantoprazole Sodium (Protonix 40mg Ivpb (Pre-Docked)) 100 mls @ 200 mls/hr IVPB HS ANIVAL Last Admin: 07/08/16 22:23 Dose: 200 mls/hr Sodium Chloride (Normal Saline -) 1,000 mls @ 100 mls/hr IV ASDIR ANIVAL Insulin Aspart (Novolog Vial Sliding Scale -) 1 vial SQ ACHS ANIVAL PRN Reason: Protocol Last Admin: 07/08/16 22:22 Dose: 6 units Insulin Detemir (Levemir Vial) 5 units SQ HS ANIVAL Last Admin: 07/08/16 22:22 Dose: 5 units Ondansetron HCl (Zofran Injection) 4 mg IVPB Q6H PRN PRN Reason: NAUSEA Valsartan (Diovan -) 160 mg PO DAILY ANIVAL Last Admin: 07/08/16 09:12 Dose: 160 mg Zolpidem Tartrate (Ambien -) 5 mg PO HS PRN PRN Reason: INSOMNIA Last Admin: 07/07/16 21:53 Dose: 5 mg A/P PAtient , noted to have 2 Lt. lung masses and other scattered nodules, multiple liver masses suspicious for mets and brain lesions around 11-13mm with some surrounding edema Scenario suspicious for metastatic lung cancer? Hypercoagulable state of malignancy with DVT/PE--rt. popliteal and LLL PE On heparin drip s/p VC filter For liver biopsy on am Discussed with patient - given advanced malignancy/PE/brain mets--patient at high risk of clotting complications. PAtient is getting liver biopsy done. IVC filter was placed as he would need interruptionof a/c for the biopsy. When cleared by IR she will need to resume a/c. Lovenox 1mg/kg SC bid would be the treatment of choice for hypercoagulable state of malignancy. This should be initiated after biopsy when cleared by IR team Advised patient to stay in the hospital for monitoring while we are resuming a/ c post proedure. Also on decadron 4mg IVPB Q 6h ---change to Po. continue protonix. Would need MRI/ WBRT once we get tissue diagnosis
[2016-07-08] MEDS: ATORVASTATIN CA 20 MG TABLET (FP) PO SCH (22:22)
[2016-07-08] MEDS: INSULIN DETEMIR 100 UNITS/ML MDV SQ SCH (22:22)
[2016-07-08] MEDS: PANTOPRAZOLE SODIUM 100 ML IVPB SCH (22:23)
[2016-07-09] MEDS: PIPERACILLIN/TAZOB 3.375 GM 50 ML IVPB SCH ×3 (01:27→18:22)
[2016-07-09] MEDS: DEXAMETHASONE SOD PHOSPHATE 4 MG/1 ML VIAL IVPB SCH ×3 (04:30→16:53)
[2016-07-09] MEDS: INSULIN SLIDING SCALE (NOVOLOG) 1 VIAL SQ SCH ×4 (06:36→22:27)
[2016-07-09 08:28] LABS: BASOPHIL 0.3 % (0-2.0); MCH 29.3 pg (25.7-33.7); MCHC 33.1 g/dl (32.0-36.0); MEAN CELL VOLUME 88.7 fl (80-96); MEAN PLT VOLUME 7.6 fl (7.5-11.1); NEUTROPHILS 85.1 % (42.8-82.8); PLATELET COUNT 224 K/MM3 (134-434); WHITE BLOOD COUNT 11.3 K/mm3 (4.0-10.0)
[2016-07-09 08:50] LABS: ALBUMIN 2.6 g/dl (3.4-5.0); CALCIUM 8.2 mg/dL (8.5-10.1); CREATININE 1.2 mg/dL (0.55-1.02)
[2016-07-09 08:52] LABS: BILIRUBIN,TOTAL 0.5 mg/dL (0.2-1.0); TOT PROT 5.6 g/dl (6.4-8.2)
--- NOTE | 2016-07-09 09:09 | PN ---
Progress Note, Physician Chief Complaint: seen and examined no acute distress S/p IVC filter placement yesterday. For bx, planned today. TELE: reviewed. NSR, occasional PVCs, couplets. Artifact noted. - Current Medication List Current Medications: Active Medications Acetaminophen (Tylenol -) 650 mg PO Q4H PRN PRN Reason: FEVER OR PAIN Alprazolam (Xanax -) 0.25 mg PO Q8H PRN PRN Reason: ANXIETY Last Admin: 07/06/16 20:52 Dose: 0.25 mg Atorvastatin Calcium (Lipitor -) 20 mg PO HS ANIVAL Last Admin: 07/08/16 22:22 Dose: 20 mg Carvedilol (Coreg -) 6.25 mg PO BID ANIVAL Last Admin: 07/08/16 22:22 Dose: 6.25 mg Cholecalciferol (Vitamin D3 -) 1,000 unit PO DAILY ANIVAL Last Admin: 07/08/16 09:12 Dose: 1,000 unit Dexamethasone Sodium Phosphate (Decadron Injection -) 4 mg IVPB Q6H-IV ANIVAL Last Admin: 07/09/16 08:44 Dose: 4 mg Heparin Sodium (Porcine) (Heparin -) 1,000 unit IVPUSH PRN PRN PRN Reason: Heparin Heparin Sodium (Porcine) (Heparin -) 5,000 unit IVPUSH PRN PRN PRN Reason: Heparin Piperacillin Sod/Tazobactam Sod (Zosyn 3.375gm Ivpb (Pre-Docked)) 50 mls @ 100 mls/hr IVPB Q8H-IV ANIVAL PRN Reason: Protocol Last Admin: 07/09/16 01:27 Dose: 100 mls/hr Heparin Sodium (Porcine) 25, (000 unit/ Sodium Chloride) 500 mls @ 20 mls/hr IV TITR ANIVAL; 1,000 UNIT/HR PRN Reason: Protocol Last Admin: 07/08/16 17:05 Dose: 20 mls/hr Pantoprazole Sodium (Protonix 40mg Ivpb (Pre-Docked)) 100 mls @ 200 mls/hr IVPB HS [facility] Last Admin: 07/08/16 22:23 Dose: 200 mls/hr Insulin Aspart (Novolog Vial Sliding Scale -) 1 vial SQ ACHS ANIVAL PRN Reason: Protocol Last Admin: 07/09/16 06:36 Dose: Not Given Insulin Detemir (Levemir Vial) 5 units SQ HS [facility] Last Admin: 07/08/16 22:22 Dose: 5 units Ondansetron HCl (Zofran Injection) 4 mg IVPB Q6H PRN PRN Reason: NAUSEA Valsartan (Diovan -) 160 mg PO DAILY [facility] Last Admin: 07/08/16 09:12 Dose: 160 mg Zolpidem Tartrate (Ambien -) 5 mg PO HS PRN PRN Reason: INSOMNIA Last Admin: 07/07/16 21:53 Dose: 5 mg - Objective Vital Signs: Vital Signs Temperature 98.1 F 07/09/16 08:36 Pulse Rate 60 07/09/16 08:36 Respiratory Rate 20 07/09/16 08:36 Blood Pressure 149/84 07/09/16 08:36 O2 Sat by Pulse Oximetry (%) 100 07/08/16 21:00 Constitutional: Yes: No Distress, Calm Eyes: Yes: Conjunctiva Clear Cardiovascular: Yes: Regular Rate and Rhythm Respiratory: Yes: Other (clear anteriorly; decreased breath sounds at bases. No wheezing.) Gastrointestinal: Yes: Soft (no rebound or guarding.), Abdomen, Obese Edema: Yes Neurological: Yes: Alert Labs: CBC, BMP 07/09/16 08:10 07/09/16 08:10 INR, PTT INR 1.29 (0.82-1.09) H 07/08/16 05:35 Laboratory Tests 07/08/16 07/09/16 07/09/16 05:35 08:10 08:10 WBC 11.3 H Hgb 9.8 L Hct 29.5 L Plt Count 224 PTT (Actin FS) 66.4 H 22.5 L D Sodium Potassium BUN Creatinine Random Glucose AST ALT Alkaline Phosphatase 07/09/16 08:10 WBC Hgb Hct Plt Count PTT (Actin FS) Sodium 144 Potassium 4.3 BUN 30 H Creatinine 1.2 H Random Glucose 151 H AST 18 ALT 31 Alkaline Phosphatase 84 Laboratory Tests 07/09/16 08:10 WBC 11.3 H Hgb 9.8 L Plt Count 224 - ....Imaging EKG: Image Reviewed Assessment/Plan Probable metastatic cancer involving lung, liver and brain Acute DVT and PE with mildly elevated TnI s/p initial course of AC, now s/p IVC filter REC: Remains hemodynamically stable. For biopsy today. Future AC plan deferred to Oncology and Pulmonary.
--- NOTE | 2016-07-09 09:55 | PN ---
Progress Note (short form) - Note Progress Note: Radiation Oncology (full consult to follow) s/p IVC filter. Biopsy scheduled today. Agree w MRI brain when able. WBRT after tissue dx. Cont decadron/PPI. Await path.
--- NOTE | 2016-07-09 14:20 | PN ---
Progress Note (short form) - Note Progress Note: No acute events overnight S/P IVC yesterday. Biopsy today. Intake & Output 07/06/16 07/07/16 07/08/16 07/09/16 23:59 23:59 23:59 23:59 Intake Total 1550 1240 300 100 Output Total 500 Balance 1050 1240 300 100 Weight 202 lb 4.8 oz 209 lb 8 oz Last Vital Signs Temp Pulse Resp BP Pulse Ox 98.1 F 59 L 17 152/84 100 07/09/16 08:36 07/09/16 14:09 07/09/16 14:09 07/09/16 14:09 07/09/16 14:09 Active Medications Acetaminophen (Tylenol -) 650 mg PO Q4H PRN PRN Reason: FEVER OR PAIN Alprazolam (Xanax -) 0.25 mg PO Q8H PRN PRN Reason: ANXIETY Last Admin: 07/06/16 20:52 Dose: 0.25 mg Atorvastatin Calcium (Lipitor -) 20 mg PO HS ANIVAL Last Admin: 07/08/16 22:22 Dose: 20 mg Carvedilol (Coreg -) 6.25 mg PO BID ANIVAL Last Admin: 07/08/16 22:22 Dose: 6.25 mg Cholecalciferol (Vitamin D3 -) 1,000 unit PO DAILY ANIAVL Last Admin: 07/08/16 09:12 Dose: 1,000 unit Dexamethasone Sodium Phosphate (Decadron Injection -) 4 mg IVPB Q6H-IV ANIVAL Last Admin: 07/09/16 08:44 Dose: 4 mg Heparin Sodium (Porcine) (Heparin -) 1,000 unit IVPUSH PRN PRN PRN Reason: Heparin Heparin Sodium (Porcine) (Heparin -) 5,000 unit IVPUSH PRN PRN PRN Reason: Heparin Piperacillin Sod/Tazobactam Sod (Zosyn 3.375gm Ivpb (Pre-Docked)) 50 mls @ 100 mls/hr IVPB Q8H-IV ANIVAL PRN Reason: Protocol Last Admin: 07/09/16 12:01 Dose: 100 mls/hr Heparin Sodium (Porcine) 25, (000 unit/ Sodium Chloride) 500 mls @ 20 mls/hr IV TITR ANIVAL; 1,000 UNIT/HR PRN Reason: Protocol Last Admin: 07/08/16 17:05 Dose: 20 mls/hr Pantoprazole Sodium (Protonix 40mg Ivpb (Pre-Docked)) 100 mls @ 200 mls/hr IVPB HS [facility] Last Admin: 07/08/16 22:23 Dose: 200 mls/hr Insulin Aspart (Novolog Vial Sliding Scale -) 1 vial SQ ACHS ANIVAL PRN Reason: Protocol Last Admin: 07/09/16 11:53 Dose: Not Given Insulin Detemir (Levemir Vial) 5 units SQ HS [facility] Last Admin: 07/08/16 22:22 Dose: 5 units Ondansetron HCl (Zofran Injection) 4 mg IVPB Q6H PRN PRN Reason: NAUSEA Valsartan (Diovan -) 160 mg PO DAILY [facility] Last Admin: 07/08/16 09:12 Dose: 160 mg Zolpidem Tartrate (Ambien -) 5 mg PO HS PRN PRN Reason: INSOMNIA Last Admin: 07/07/16 21:53 Dose: 5 mg Constitutional: Yes: NAD Eyes: Yes: WNL HENT: Yes: WNL Neck: Yes: WNL Cardiovascular: Yes: Regular Rate and Rhythm, S1, S2 Respiratory: Yes: Diminished at the bases Gastrointestinal: Yes: Normal Bowel Sounds, Soft Extremities: Yes: WNL Edema: No Labs: Laboratory Results - last 24 hr 07/08/16 07/08/16 07/09/16 16:57 21:43 06:19 WBC RBC Hgb Hct MCV MCHC RDW Plt Count MPV Neutrophils % Lymphocytes % Monocytes % Eosinophils % Basophils % PTT (Actin FS) Sodium Potassium Chloride Carbon Dioxide Anion Gap BUN Creatinine Creat Clearance w eGFR POC Glucometer 167 240 159 Random Glucose Calcium Total Bilirubin AST ALT Alkaline Phosphatase Total Protein Albumin 07/09/16 07/09/16 07/09/16 08:10 08:10 08:10 WBC 11.3 H RBC 3.33 L Hgb 9.8 L Hct 29.5 L MCV 88.7 MCHC 33.1 RDW 15.0 Plt Count 224 MPV 7.6 Neutrophils % 85.1 H Lymphocytes % 7.9 L D Monocytes % 6.7 Eosinophils % 0.0 Basophils % 0.3 PTT (Actin FS) 22.5 L D Sodium 144 Potassium 4.3 Chloride 114 H Carbon Dioxide 20 L Anion Gap 10 BUN 30 H Creatinine 1.2 H Creat Clearance w eGFR 43.80 POC Glucometer Random Glucose 151 H Calcium 8.2 L Total Bilirubin 0.5 D AST 18 ALT 31 Alkaline Phosphatase 84 Total Protein 5.6 L Albumin 2.6 L Problem List - Problems (1) Pulmonary embolism Code(s): I26.99 - OTHER PULMONARY EMBOLISM WITHOUT ACUTE COR PULMONALE Qualifiers: Pulmonary embolism type: other Chronicity: acute Acute cor pulmonale presence: without acute cor pulmonale Qualified Code(s): I26.99 - Other pulmonary embolism without acute cor pulmonale (2) DVT (deep venous thrombosis) Code(s): I82.409 - ACUTE EMBOLISM AND THOMBOS UNSP DEEP VN UNSP LOWER EXTREMITY Qualifiers: DVT location: lower extremity Affected thrombotic vein of extremity: popliteal Laterality: right Chronicity: acute Qualified Code(s): I82.431 - Acute embolism and thrombosis of right popliteal vein (3) Chest pain Code(s): R07.9 - CHEST PAIN, UNSPECIFIED Qualifiers: Chest pain type: unspecified Qualified Code(s): R07.9 - Chest pain, unspecified (4) Elevated troponin Code(s): R79.89 - OTHER SPECIFIED ABNORMAL FINDINGS OF BLOOD CHEMISTRY (5) Pulmonary hypertension Code(s): I27.2 - OTHER SECONDARY PULMONARY HYPERTENSION (6) Lung mass Code(s): R91.8 - OTHER NONSPECIFIC ABNORMAL FINDING OF LUNG FIELD (7) Brain metastases Code(s): C79.31 - SECONDARY MALIGNANT NEOPLASM OF BRAIN Assessment/Plan Acute Pulmonary Emboli DVT Pulmonary HTN +Troponins 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 CAD s/p CABG HTN DM UTI CT guided liver biopsy S/P IVC filter placement O2 to keep SpO2 >90% OOB to chair Dr Ricci
--- NOTE | 2016-07-09 14:36 | PN ---
Progress Note, Physician History of Present Illness: patient stable no issues ivc filter placed - Current Medication List Current Medications: Active Medications Acetaminophen (Tylenol -) 650 mg PO Q4H PRN PRN Reason: FEVER OR PAIN Alprazolam (Xanax -) 0.25 mg PO Q8H PRN PRN Reason: ANXIETY Last Admin: 07/06/16 20:52 Dose: 0.25 mg Atorvastatin Calcium (Lipitor -) 20 mg PO HS [facility] Last Admin: 07/08/16 22:22 Dose: 20 mg Carvedilol (Coreg -) 6.25 mg PO BID [facility] Last Admin: 07/08/16 22:22 Dose: 6.25 mg Cholecalciferol (Vitamin D3 -) 1,000 unit PO DAILY [facility] Last Admin: 07/08/16 09:12 Dose: 1,000 unit Dexamethasone Sodium Phosphate (Decadron Injection -) 4 mg IVPB Q6H-IV ANIVAL Last Admin: 07/09/16 08:44 Dose: 4 mg Heparin Sodium (Porcine) (Heparin -) 1,000 unit IVPUSH PRN PRN PRN Reason: Heparin Heparin Sodium (Porcine) (Heparin -) 5,000 unit IVPUSH PRN PRN PRN Reason: Heparin Piperacillin Sod/Tazobactam Sod (Zosyn 3.375gm Ivpb (Pre-Docked)) 50 mls @ 100 mls/hr IVPB Q8H-IV ANIVAL PRN Reason: Protocol Last Admin: 07/09/16 12:01 Dose: 100 mls/hr Heparin Sodium (Porcine) 25, (000 unit/ Sodium Chloride) 500 mls @ 20 mls/hr IV TITR ANIVAL; 1,000 UNIT/HR PRN Reason: Protocol Last Admin: 07/08/16 17:05 Dose: 20 mls/hr Pantoprazole Sodium (Protonix 40mg Ivpb (Pre-Docked)) 100 mls @ 200 mls/hr IVPB HS [facility] Last Admin: 07/08/16 22:23 Dose: 200 mls/hr Insulin Aspart (Novolog Vial Sliding Scale -) 1 vial SQ ACHS ANIVAL PRN Reason: Protocol Last Admin: 07/09/16 11:53 Dose: Not Given Insulin Detemir (Levemir Vial) 5 units SQ HS [facility] Last Admin: 07/08/16 22:22 Dose: 5 units Ondansetron HCl (Zofran Injection) 4 mg IVPB Q6H PRN PRN Reason: NAUSEA Valsartan (Diovan -) 160 mg PO DAILY ANIVAL Last Admin: 07/08/16 09:12 Dose: 160 mg Zolpidem Tartrate (Ambien -) 5 mg PO HS PRN PRN Reason: INSOMNIA Last Admin: 07/07/16 21:53 Dose: 5 mg - Objective Vital Signs: Vital Signs Temperature 98.1 F 07/09/16 08:36 Pulse Rate 59 L 07/09/16 14:09 Respiratory Rate 07/09/16 14:09 Blood Pressure 152/84 07/09/16 14:09 O2 Sat by Pulse Oximetry (%) 100 07/09/16 14:09 Constitutional: Yes: No Distress, Calm Cardiovascular: Yes: Regular Rate and Rhythm Respiratory: Yes: Regular, CTA Bilaterally Gastrointestinal: Yes: Normal Bowel Sounds, Soft Neurological: Yes: Alert, Oriented Psychiatric: Yes: Alert Labs: CBC, BMP 07/09/16 08:10 07/09/16 08:10 INR, PTT INR 1.29 (0.82-1.09) H 07/08/16 05:35 Assessment/Plan this patient with a very high chance of having metastatic lung ca including brain mets and liver mets,who has developed pul embolism and dvt probably as consequence of the primary process patient will need a tissue diagnosis and the patient is waiting for the same as the plan is to stabilize the patient and then do biopsy Problem List - Problems (1) Pulmonary embolism Code(s): I26.99 - OTHER PULMONARY EMBOLISM WITHOUT ACUTE COR PULMONALE Qualifiers: Pulmonary embolism type: other Chronicity: acute Acute cor pulmonale presence: without acute cor pulmonale Qualified Code(s): I26.99 - Other pulmonary embolism without acute cor pulmonale (2) DVT (deep venous thrombosis) Code(s): I82.409 - ACUTE EMBOLISM AND THOMBOS UNSP DEEP VN UNSP LOWER EXTREMITY Qualifiers: DVT location: lower extremity Affected thrombotic vein of extremity: popliteal Laterality: right Chronicity: acute Qualified Code(s): I82.431 - Acute embolism and thrombosis of right popliteal vein (3) Chest pain Code(s): R07.9 - CHEST PAIN, UNSPECIFIED Qualifiers: Chest pain type: unspecified Qualified Code(s): R07.9 - Chest pain, unspecified (4) Elevated troponin Code(s): R79.89 - OTHER SPECIFIED ABNORMAL FINDINGS OF BLOOD CHEMISTRY (5) Pulmonary hypertension Code(s): I27.2 - OTHER SECONDARY PULMONARY HYPERTENSION (6) Lung mass Code(s): R91.8 - OTHER NONSPECIFIC ABNORMAL FINDING OF LUNG FIELD (7) Brain metastases Code(s): C79.31 - SECONDARY MALIGNANT NEOPLASM OF BRAIN plan continue current mgmt patient awaiting for biopsy post ivc filter continue abx
[2016-07-09] MEDS: VALSARTAN 160 MG TABLET (UD) PO SCH (15:24)
[2016-07-09] MEDS: CHOLECALCIFEROL (VITAMIN D3) 1,000 UNIT TABLET (FP) PO SCH (15:24)
[2016-07-09] MEDS: CARVEDILOL 6.25 MG TABLET (FP) PO SCH ×2 (15:24→22:18)
--- NOTE | 2016-07-09 15:39 | PN ---
Physical Exam: SUBJECTIVE: Patient seen and examined. She is alert and oriented x 3, for liver biopsy today Heparin stopped at 00:01 for procedure IVC filter placed yesterday Patient is asking to go home, she wants to follow up with an Oncologist @ [facility]. OBJECTIVE: GENERAL: The patient is awake, alert, and fully oriented, anxious at times HEAD: Normal with no signs of trauma. EYES: PERRL, extraocular movements intact, sclera anicteric, conjunctiva clear. No ptosis. ENT: Ears normal, nares patent, oropharynx clear without exudates, moist mucous membranes. NECK: Trachea midline, full range of motion, supple. LUNGS: Breath sounds equal, clear to auscultation bilaterally, no wheezes, no crackles, no accessory muscle use. HEART: Sinus ryhthm 60s ABDOMEN: Soft, nontender, nondistended, normoactive bowel sounds, no guarding, no rebound, no hepatosplenomegaly, no masses. EXTREMITIES: 2+ pulses, warm, well-perfused, no edema. NEUROLOGICAL: Normal speech, gait not observed. PSYCH: Normal mood, normal affect. SKIN: Warm, dry, normal turgor, no rashes or lesions noted Vital Signs Period Temp Pulse Resp BP Sys/[place] Pulse Ox Last 24 Hr 97.3 F-98.1 F 54-68 16-20 122-157/59-85 96-100 Laboratory Results - last 24 hr 07/08/16 07/08/16 07/09/16 16:57 21:43 06:19 WBC RBC Hgb Hct MCV MCHC RDW Plt Count MPV Neutrophils % Lymphocytes % Monocytes % Eosinophils % Basophils % PTT (Actin FS) Sodium Potassium Chloride Carbon Dioxide Anion Gap BUN Creatinine Creat Clearance w eGFR POC Glucometer 167 240 159 Random Glucose Calcium Total Bilirubin AST ALT Alkaline Phosphatase Total Protein Albumin 07/09/16 07/09/16 07/09/16 08:10 08:10 08:10 WBC 11.3 H RBC 3.33 L Hgb 9.8 L Hct 29.5 L MCV 88.7 MCHC 33.1 RDW 15.0 Plt Count 224 MPV 7.6 Neutrophils % 85.1 H Lymphocytes % 7.9 L D Monocytes % 6.7 Eosinophils % 0.0 Basophils % 0.3 PTT (Actin FS) 22.5 L D Sodium 144 Potassium 4.3 Chloride 114 H Carbon Dioxide 20 L Anion Gap 10 BUN 30 H Creatinine 1.2 H Creat Clearance w eGFR 43.80 POC Glucometer Random Glucose 151 H Calcium 8.2 L Total Bilirubin 0.5 D AST 18 ALT 31 Alkaline Phosphatase 84 Total Protein 5.6 L Albumin 2.6 L Active Medications Generic Name Dose Route Start Last Admin Trade Name Freq PRN Reason Stop Dose Admin Acetaminophen 650 mg 07/06/16 15:20 Tylenol - PO Q4H PRN FEVER OR PAIN Alprazolam 0.25 mg 07/06/16 10:53 07/06/16 20:52 Xanax - PO 0.25 mg Q8H PRN Administration ANXIETY Atorvastatin Calcium 20 mg 07/06/16 22:00 07/08/16 22:22 Lipitor - PO 20 mg HS ANIVAL Administration Carvedilol 6.25 mg 07/06/16 22:00 07/09/16 15:24 Coreg - PO 6.25 mg BID ANIVAL Administration Cholecalciferol 1,000 unit 07/07/16 10:00 07/09/16 15:24 Vitamin D3 - PO 1,000 unit DAILY ANIVAL Administration Dexamethasone 4 mg 07/09/16 15:15 Decadron - PO Q6HPO ANIVAL Heparin Sodium (Porcine) 1,000 unit 07/06/16 15:20 Heparin - IVPUSH PRN PRN Heparin Heparin Sodium (Porcine) 5,000 unit 07/06/16 15:20 Heparin - IVPUSH PRN PRN Heparin Piperacillin Sod/Tazobactam Sod 50 mls @ 100 mls/hr 07/05/16 18:00 07/09/16 12: 01 Zosyn 3.375gm Ivpb (Pre-Docked) IVPB 100 mls/hr Q8H-IV ANIVAL Administration Protocol Heparin Sodium (Porcine) 25, 500 mls @ 20 mls/hr 07/06/16 15:20 07/08/16 17:05 000 unit/ Sodium Chloride IV 20 mls/hr TITR ANIVAL Administration Protocol 1,000 UNIT/HR Pantoprazole Sodium 100 mls @ 200 mls/hr 07/06/16 22:00 07/08/16 22:23 Protonix 40mg Ivpb (Pre-Docked) IVPB 200 mls/hr HS ANIVAL Administration Insulin Aspart 1 vial 07/06/16 14:02 07/09/16 11:53 Novolog Vial Sliding Scale - SQ Not Given ACHS [facility] Protocol Insulin Detemir 5 units 07/07/16 22:00 07/08/16 22:22 Levemir Vial SQ 5 units HS ANIVAL Administration Ondansetron HCl 4 mg 07/06/16 15:20 Zofran Injection IVPB Q6H PRN NAUSEA Valsartan 160 mg 07/07/16 10:00 07/09/16 15:24 Diovan - PO 160 mg DAILY ANIVAL Administration Zolpidem Tartrate 5 mg 07/04/16 15:58 07/07/16 21:53 Ambien - PO 5 mg HS PRN Administration INSOMNIA ASSESSMENT/PLAN: Patient is a 76 year old female with a significant past medical history of 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 She presents to the ED on 07/03/2016 with chest pain radiating to her left arm with shortness of breath. She was found to have a right lower extremity DVT and LLL Pulmonary Embolism on admission. Imaging: Chest CT/Chest CTA 07/03/2016 - Positive PE LL arterial branches. 2 left lung masses with additional nod. and liver lesions consistent with malignancy. CT/Head CT 07/03/2016 - Moderate atrophy and chronic microvascular ischemic changes focal cortical and subcortical enhancements in the right parietal lobe, lesions measuring 11 x 6cm findings suspicions for brain mets. Had IVC filter placed yesterday in IR Liver biopsy today Hematology: DVT/Pulmonary Embolism - acute Assessment/Plan: Chest CT/Chest CTA 07/03/2016 - Positive PE LL arteral branches. 2 left lung masses with additional nod. and liver lesions consistent with malignancy. Heparin drip on hold for liver biopsy, to start on Lovenox SC BIC for planned d/ c once cleared by IR tolerating room air, oxygen sats stable Monitor closely Oncology: Metastatic cancer (liver, lung, brain metastases) unknown primary Assessment/Plan: Liver tissue biopsy today Decadron 4mg changed from IV to PO in anticipation of discharge tomorrow Hematology/Oncology following Cardiology: Elevated troponins - acute Assessment/Plan: Troponins 0.91, 3.61, 2.08, 0.89 Likely due to PE, not likely [place] Cardiology following Coronary Artery Disease s/p CABG Assessment/Plan: on Diovan, Coreq, resume ASA on discharge Hypertension - chronic Assessment/Plan: Controlled on Diovan, Coreq Hyperlipidemia - chronic Assessment/Plan: On Lipitor ID: UTI - acute Assessment/Plan: Urine cultures with E-coli Leukocytosis improving, remains afebrile, vitals stable ID consulted and started patient on Zosyn Endocrine: Assessment/Plan: Diabetes Mellitus Novolog sliding scale - increased sliding scale standing dose, on Levemir BID F.E.N. Fluids: tolerating PO Electrolytes: BMP daily Nutrition: Diabetic diet Prophylaxis: DVT: has IVC filter placed, will start Lovenox as per Heme recommendations once cleared by IR, GI: Protonix Disposition: Anticipate discharge tomorrow. Full Code. Visit type - Emergency Visit Emergency Visit: Yes ED Registration Date: 07/03/16 Care time: The patient presented to the Emergency Department on the above date and was hospitalized for further evaluation of their emergent condition. - New Patient This patient is new to me today: No - Critical Care Critical Care patient: No - Discharge Referral Referred to [facility] Med P.C.: No
[2016-07-09] MEDS: HEPARIN - 25,000 UNIT in SODIUM CHLORIDE 495 ML IV SCH (16:12)
[2016-07-09] MEDS: DEXAMETHASONE 4 MG TABLET (FP) PO SCH ×2 (16:28→18:50)
--- NOTE | 2016-07-09 20:33 | PN ---
Progress Note (short form) - Note Progress Note: Patient seen and examined S/p IVC filter S/P liver biopsy No untoward effects Last Vital Signs Temp Pulse Resp BP Pulse Ox 97.4 F L 60 20 120/58 100 07/09/16 17:00 07/09/16 17:00 07/09/16 17:00 07/09/16 17:00 07/09/16 14:09 HEENT: KAREN, EOM Intact Oropharynx: No thrush, No mucositis Cor: RSR, No murmurs, No gallops Lungs: Clear to P&A Abd: Soft, Normal bowel sounds, No organomegaly Ext:LE edema Skin: No rashes, Integument intact CBC, BMP 07/09/16 08:10 07/09/16 08:10 Current Medications Generic Name Dose Route Start Last Admin Trade Name Freq PRN Reason Stop Dose Admin Acetaminophen 650 mg 07/06/16 15:20 Tylenol - PO Q4H PRN FEVER OR PAIN Alprazolam 0.25 mg 07/06/16 10:53 07/06/16 20:52 Xanax - PO 0.25 mg Q8H PRN Administration ANXIETY Atorvastatin Calcium 20 mg 07/06/16 22:00 07/08/16 22:22 Lipitor - PO 20 mg HS ANIVAL Administration Carvedilol 6.25 mg 07/06/16 22:00 07/09/16 15:24 Coreg - PO 6.25 mg BID ANIVAL Administration Cholecalciferol 1,000 unit 07/07/16 10:00 07/09/16 15:24 Vitamin D3 - PO 1,000 unit DAILY ANIVAL Administration Dexamethasone 4 mg 07/09/16 15:15 07/09/16 18:50 Decadron - PO 4 mg Q6HPO ANIVAL Administration Heparin Sodium (Porcine) 1,000 unit 07/06/16 15:20 Heparin - IVPUSH PRN PRN Heparin Heparin Sodium (Porcine) 5,000 unit 07/06/16 15:20 Heparin - IVPUSH PRN PRN Heparin Piperacillin Sod/Tazobactam Sod 50 mls @ 100 mls/hr 07/05/16 18:00 07/09/16 18: 22 Zosyn 3.375gm Ivpb (Pre-Docked) IVPB 100 mls/hr Q8H-IV ANIVAL Administration Protocol Heparin Sodium (Porcine) 25, 500 mls @ 20 mls/hr 07/06/16 15:20 07/09/16 16:12 000 unit/ Sodium Chloride IV Not Given TITR ANIVAL Protocol 1,000 UNIT/HR Pantoprazole Sodium 100 mls @ 200 mls/hr 07/06/16 22:00 07/08/16 22:23 Protonix 40mg Ivpb (Pre-Docked) IVPB 200 mls/hr HS ANIVAL Administration Insulin Aspart 1 vial 07/06/16 14:02 07/09/16 17:29 Novolog Vial Sliding Scale - SQ Not Given ACHS ANIVAL Protocol Insulin Detemir 5 units 07/07/16 22:00 07/08/16 22:22 Levemir Vial SQ 5 units HS ANIVAL Administration Ondansetron HCl 4 mg 07/06/16 15:20 Zofran Injection IVPB Q6H PRN NAUSEA Valsartan 160 mg 07/07/16 10:00 07/09/16 15:24 Diovan - PO 160 mg DAILY ANIVAL Administration Zolpidem Tartrate 5 mg 07/04/16 15:58 07/07/16 21:53 Ambien - PO 5 mg HS PRN Administration INSOMNIA Impression: Lung Masses Liver masses [employer] masses Likely metastatic lung Ca To change to p.o decadeon To resume Lovenox when cleared by I.R.
[2016-07-09] MEDS: ZOLPIDEM TARTRATE 5 MG TABLET PO PRN (22:19)
[2016-07-09] MEDS: ATORVASTATIN CA 20 MG TABLET (FP) PO SCH (22:19)
[2016-07-09] MEDS: PANTOPRAZOLE SODIUM 100 ML IVPB SCH (22:19)
[2016-07-09] MEDS: INSULIN DETEMIR 100 UNITS/ML MDV SQ SCH (22:28)
[2016-07-10] MEDS: DEXAMETHASONE 4 MG TABLET (FP) PO SCH ×3 (01:20→12:20)
[2016-07-10] MEDS: PIPERACILLIN/TAZOB 3.375 GM 50 ML IVPB SCH ×2 (03:20→10:46)
[2016-07-10] MEDS: INSULIN SLIDING SCALE (NOVOLOG) 1 VIAL SQ SCH ×2 (06:36→12:20)
[2016-07-10 07:25] LABS: BASOPHIL 0.1 % (0-2.0); MCH 29.6 pg (25.7-33.7); MCHC 33.5 g/dl (32.0-36.0); MEAN CELL VOLUME 88.3 fl (80-96); MEAN PLT VOLUME 8.4 fl (7.5-11.1); NEUTROPHILS 86.8 % (42.8-82.8); PLATELET COUNT 170 K/MM3 (134-434); RDW 14.8 % (11.6-15.6); WHITE BLOOD COUNT 10.6 K/mm3 (4.0-10.0)
[2016-07-10 07:43] LABS: INR 1.35 (0.82-1.09); PROTHROMBIN TIME (PATIENT) 14.9 SEC (9.98-11.88)
[2016-07-10 08:10] LABS: ALBUMIN 2.6 g/dl (3.4-5.0); BILIRUBIN,TOTAL 0.7 mg/dL (0.2-1.0); CALCIUM 7.9 mg/dL (8.5-10.1); CREATININE 1.1 mg/dL (0.55-1.02); TOT PROT 5.2 g/dl (6.4-8.2)
--- NOTE | 2016-07-10 09:11 | PN ---
Progress Note, Physician Chief Complaint: alert, oriented. No distress - Current Medication List Current Medications: Active Medications Acetaminophen (Tylenol -) 650 mg PO Q4H PRN PRN Reason: FEVER OR PAIN Alprazolam (Xanax -) 0.25 mg PO Q8H PRN PRN Reason: ANXIETY Last Admin: 07/06/16 20:52 Dose: 0.25 mg Atorvastatin Calcium (Lipitor -) 20 mg PO HS [facility] Last Admin: 07/09/16 22:19 Dose: 20 mg Carvedilol (Coreg -) 6.25 mg PO BID [facility] Last Admin: 07/09/16 22:18 Dose: 6.25 mg Cholecalciferol (Vitamin D3 -) 1,000 unit PO DAILY [facility] Last Admin: 07/09/16 15:24 Dose: 1,000 unit Dexamethasone (Decadron -) 4 mg PO Q6HPO [facility] Last Admin: 07/10/16 06:37 Dose: 4 mg Heparin Sodium (Porcine) (Heparin -) 1,000 unit IVPUSH PRN PRN PRN Reason: Heparin Heparin Sodium (Porcine) (Heparin -) 5,000 unit IVPUSH PRN PRN PRN Reason: Heparin Piperacillin Sod/Tazobactam Sod (Zosyn 3.375gm Ivpb (Pre-Docked)) 50 mls @ 100 mls/hr IVPB Q8H-IV ANIVAL PRN Reason: Protocol Last Admin: 07/10/16 03:20 Dose: 100 mls/hr Heparin Sodium (Porcine) 25, (000 unit/ Sodium Chloride) 500 mls @ 20 mls/hr IV TITR ANIVAL; 1,000 UNIT/HR PRN Reason: Protocol Last Admin: 07/09/16 16:12 Dose: Not Given Pantoprazole Sodium (Protonix 40mg Ivpb (Pre-Docked)) 100 mls @ 200 mls/hr IVPB HS [facility] Last Admin: 07/09/16 22:19 Dose: 200 mls/hr Insulin Aspart (Novolog Vial Sliding Scale -) 1 vial SQ ACHS ANIVAL PRN Reason: Protocol Last Admin: 07/10/16 06:36 Dose: 4 units Insulin Detemir (Levemir Vial) 5 units SQ HS [facility] Last Admin: 07/09/16 22:28 Dose: 5 units Ondansetron HCl (Zofran Injection) 4 mg IVPB Q6H PRN PRN Reason: NAUSEA Valsartan (Diovan -) 160 mg PO DAILY [facility]AL Last Admin: 07/09/16 15:24 Dose: 160 mg Zolpidem Tartrate (Ambien -) 5 mg PO HS PRN PRN Reason: INSOMNIA Last Admin: 07/09/16 22:19 Dose: 5 mg - Objective Vital Signs: Vital Signs Temperature 97.4 F L 07/10/16 06:02 Pulse Rate 58 L 07/10/16 06:02 Respiratory Rate 20 07/10/16 06:02 Blood Pressure 139/70 07/10/16 06:02 O2 Sat by Pulse Oximetry (%) 100 07/09/16 21:00 Constitutional: Yes: No Distress Cardiovascular: Yes: Regular Rate and Rhythm Respiratory: Yes: CTA Bilaterally Gastrointestinal: Yes: Soft Edema: Yes Edema: LLE: 1+, RLE: 1+ Neurological: Yes: Alert ...Motor Strength: WNL Labs: CBC, BMP 07/10/16 05:35 07/10/16 05:35 INR, PTT INR 1.35 (0.82-1.09) H 07/10/16 05:35 Laboratory Tests 07/10/16 07/10/16 05:35 05:35 WBC 10.6 H Hgb 9.6 L Plt Count 170 D Potassium 3.9 Creatinine 1.1 H ALT 28 Alkaline Phosphatase 80 - ....Imaging EKG: Image Reviewed Assessment/Plan Assessment/Plan Probable metastatic cancer involving lung, liver and brain s/p biopsy Acute DVT and PE with mildly elevated TnI s/p initial course of AC, now s/p IVC filter REC: Remains hemodynamically stable, tolerated biopsy well. Future AC plan deferred to Oncology and Pulmonary, with plan to resume Lovenox when cleared by IR.
[2016-07-10] MEDS: VALSARTAN 160 MG TABLET (UD) PO SCH (10:47)
[2016-07-10] MEDS: CARVEDILOL 6.25 MG TABLET (FP) PO SCH (10:47)
[2016-07-10] MEDS: CHOLECALCIFEROL (VITAMIN D3) 1,000 UNIT TABLET (FP) PO SCH (10:47)
[2016-07-10 11:26] VITALS: BP 112/57; PULSE 62; TEMP 97.5
--- NOTE | 2016-07-10 13:45 | DS ---
Physical Examination Vital Signs: Vital Signs Temperature 97.5 F L 07/10/16 10:00 Pulse Rate 62 07/10/16 10:00 Respiratory Rate 18 07/10/16 10:00 Blood Pressure 112/57 07/10/16 10:00 O2 Sat by Pulse Oximetry (%) 99 07/10/16 09:00 Findings/Remarks: GENERAL: The patient is awake, alert, and fully oriented, anxious at times HEAD: Normal with no signs of trauma. LUNGS: Breath sounds equal, clear to auscultation bilaterally, no wheezes, no crackles, no accessory muscle use. HEART: RRR, S1S2 ABDOMEN: Soft, nontender, nondistended, normoactive bowel sounds, no guarding, no rebound, no hepatosplenomegaly, no masses. EXTREMITIES: 2+ pulses, warm, well-perfused, no edema. Labs: CBC, BMP 07/10/16 05:35 07/10/16 05:35 Discharge Summary Reason For Visit: DVT/ELAVATED TROPONIN,PULMONARY EMBOLISM Current Active Problems Brain metastases (Acute) Chest pain (Acute) DVT (deep venous thrombosis) (Acute) Elevated troponin (Acute) Lung mass (Acute) Pulmonary embolism (Acute) Pulmonary hypertension (Acute) Hospital Course: This is a 76 year old female with PMHx of CAD, CABG, HTN, DM, GERD, CKD, who was recently diagnosed with metastatic cancer (liver, lung, brain) unknown primary, who presented to the ED with shortness of breath and chest pain. Plan: 1) Hematology/Oncology: RLE popliteal DVT, PE - Heparin discontinued and patient started on Lovenox - Liver biopsy performed, will need follow-up with oncology for results, may resume Lovenox on Friday07/12/16 - Will need MRI brain with and without contrast as outpatient - Continue Decadron - Appreciate oncology consult - Appreciate critical care consult - F/u rad onc consult as outpatient Thrombocytopenia 2/2 metastatic disease? - Continue to trending, 104->114 2) Neuro: Brain mets with surrounding edema - Continue Decadron taper per oncology 3) Cardiology: Elevated troponins - EKG with sinus rhythm with occasional PVCs - Per cardiology, elevated trops likely 2/2 PE rather than [place] - Troponins trending down - Patient denies chest pain CAD, s/p CABG - Continue Coreg - Continue Lipitor - Continue Diovan 4) Endocrine: DM - BGM ACHS - ISS ACHS 5) : CKD - Cr improved The patient was discharged and instructed to follow-up with pulmonary, pcp, neurology, cardiology, rad onc, and oncology. Please return to the ED with new, persistent, or worsening symptoms. This discharge took 45 minutes to complete. Condition: Stable - Instructions Diet, Activity, Other Instructions: Please return to the ED with new, persistent, or worsening symptoms. Please follow-up with providers as indicated. Please follow-up with Dr. Lopez for liver biopsy results within 3-5 days. Continue current dose of Decadron at 4mg by mouth every 6 hours and follow-up with Dr. Lopez for further recommendations for tapering. Continue taking Protonix while you are on Decadron. Start Lovenox on Friday morning (07/12/16). You will need to continue the Lovenox injections twice a day. Referrals: Ok Jimenez MD [Staff Physician] - 1 Week Chico Pederson MD [Primary Care Provider] - 1 Week Abraham Uribe MD [Staff Physician] - 1 Week Angel Valdez MD [Staff Physician] - 1 Week Angel Garcia MD [Staff Physician] - 1 Week Syed Lopez MD [Staff Physician] - (Please follow-up with Dr. Lopez within 5 days for your liver biopsy results) Disposition: VNS/HOME HEALTH CARE - Home Medications Comprehensive Discharge Medication List: Ambulatory Orders Atorvastatin Ca [Lipitor] 20 mg PO HS 11/01/15 Carvedilol [Coreg] 6.25 mg PO BID 11/01/15 Cholecalciferol (Vitamin D3) [Vitamin D3 -] 1,000 unit PO DAILY 07/03/16 Dexamethasone [Decadron -] 4 mg PO Q6HPO #120 tablet 07/10/16 Enoxaparin [Lovenox -] 95 mg SQ BID #60 disp.syrin 07/10/16 Insulin (Levemir) [Levemir Vial] 5 units SQ HS #1 ml 07/10/16 Insulin Sliding Scale [Novolog Vial Sliding Scale -] 1 vial SQ ACHS #1 ml Valsartan [Diovan] 160 mg PO DAILY #30 tablet 07/10/16 This patient is new to me today: No Emergency Visit: Yes ED Registration Date: 07/03/16 Care time: The patient presented to the Emergency Department on the above date and was hospitalized for further evaluation of their emergent condition. Critical Care patient: No - Discharge Referral Referred to [facility] No
--- NOTE | 2016-07-11 13:10 | PATH ---
Surgical Pathology Report Patient Name: RUSS CARPENTER [facility]. Rec. #: [id number] /Age/Gender: 1940 (Age: 76) / F Account: [id number] Location: 4 W TELEMETRY U Taken: 07/09/2016 Received: 07/09/2016 Reported: 07/11/2016 Physicians: Jsutin Daniel M.D. Michell August M.D. Erica Sgroe, [facility]Jana[facility] Specimen(s) Received LIVER BIOPSY Clinical History 76-year-old female with metastatic cancer to liver of unclear primary (likely lung) Final Diagnosis LIVER, US GUIDED CORE BIOPSY: INVOLVEMENT BY METASTATIC ADENOCARCINOMA CONSISTENT WITH LUNG ORIGIN (SEE COMMENT). Comment: Immunohistochemical stains performed and interpreted at [facility] show the following: The tumor cells are positive for TTF-1, CK7, Ae/Ae3, and are negative for CK20 immunostain. [facility] [place] [id number] and interpreted at [facility] show the tumor cells are positive for Napsin A and are negative for HepPar1 and Thyroglobulin immunostains. The morphologic findings and the immunoprofile are consistent with involvement by metastatic adenocarcinoma of lung origin. The case was preliminary discussed with Dr. Lopez on 07/11/16. The material is available for molecular studies. Electronically Signed Xu Blancas M.D. Gross Description Received in formalin, labeled "liver tissue" are 4 awad, cylindrical portions of soft tissue ranging from 0.2-1.2 cm in length and averaging 0.1 cm in diameter. The specimens are submitted in toto in one cassette. 07/09/201607/09/2016
== END 2016-07-10 15:25 | disposition home health service (06) | DRG 166 ==
LOC: JER 10:05 → JERBED 14:09 → JICU 15:15 → J4W 07-06 14:00
PROVIDERS: ADMIT Internal Medicine; ATTEND Registered Nurse
PROC: 06H03DZ Insertion of Intraluminal Device into Inferior Vena Cava, Percutaneous Approach (ICD-10-PCS; principal; 2016-07-08)
PROC: 0FB03ZX Excision of Liver, Percutaneous Approach, Diagnostic (ICD-10-PCS; 2016-07-09)
DX: I26.99 Other pulmonary embolism without acute cor pulmonale (principal); G93.6 Cerebral edema; C78.7 Secondary malignant neoplasm of liver and intrahepatic bile duct; C78.00 Secondary malignant neoplasm of unspecified lung; C79.31 Secondary malignant neoplasm of brain; I82.431 Acute embolism and thrombosis of right popliteal vein; N39.0 Urinary tract infection, site not specified; I25.10 Atherosclerotic heart disease of native coronary artery without angina pectoris; Z95.1 Presence of aortocoronary bypass graft; I27.2 Other secondary pulmonary hypertension; C80.1 Malignant (primary) neoplasm, unspecified; K21.9 Gastro-esophageal reflux disease without esophagitis; Z79.84 Long term (current) use of oral hypoglycemic drugs; D69.6 Thrombocytopenia, unspecified; E11.22 Type 2 diabetes mellitus with diabetic chronic kidney disease; I12.9 Hypertensive chronic kidney disease with stage 1 through stage 4 chronic kidney disease, or unspecified chronic kidney disease; N18.3 Chronic kidney disease, stage 3 (moderate); Z87.891 Personal history of nicotine dependence; B96.20 Unspecified Escherichia coli [E. coli] as the cause of diseases classified elsewhere
CPT/HCPCS: 36415; 37191; 70470-TC; 71010-TC; 71275-TC; 76705-TC; 76937-TC; 76942-TC; 80053; 82550; 83735; 84100; 84484; 85025; 85027; 85610; 85730; 86850; 86900; 86901; 87040; 87086; 87186; 87899; 88307-TC; 88341-TC; 93005; 93010; 93306-TC; 93970-TC; 99285-25; C1769; C1880; C1887; J1644